=== PATIENT | female | born 1960 | race Caucasian/White ===

== ENCOUNTER → 2019-10-26 15:42 | Outpatient (CLI) | payer OTHER, SELFPAY ==
--- NOTE | 2019-10-26 | DI.RAD.S_ITS ---
PROCEDURE: XR HAND RT MIN 3V INDICATIONS: RIGHT THUMB PAIN FROM FALL TECHNIQUE: 3 views of the hand(s) acquired. COMPARISON: None. FINDINGS: Bones: No fractures or dislocations. Carpal bones are normally aligned. No suspicious bony lesions. Soft tissues: No suspicious soft tissue calcifications. IMPRESSION: 1. No acute fracture. No osseous lesion. If clinical suspicion and/orsymptoms persist, further assessment with repeat plainfilms, or advanced imaging (e.g., CT, MRI, or bone scan) may be helpful for further assessment. Dictated by: Johnathon Jenkins [facility] Interpreted: Anabel Whitaker MD on 10/26/2019 at 16:36 Approved by: Anabel Whitaker M.D. on 10/26/2019 at 18:20
== END ==
PROVIDERS: Referring Provider Internal Medicine; Visit Provider Internal Medicine
DX: M79.641 Pain in right hand (principal)
CPT/HCPCS: 73130

== ENCOUNTER 2019-12-04 03:09 | Emergency (ER) | payer OTHER, SELFPAY ==
[2019-12-04] VITALS (14 sets, daily range): BP systolic 97–214; BP diastolic 53–111; PULSE 72–111; RESP 11–26; TEMP 36.7; O2SAT 97–100; BMI 33.7
--- NOTE | 2019-12-04 03:17 | DI.RAD.S_ITS ---
PROCEDURE: XR CHEST 1V INDICATIONS: chest pain, pressure, arm pain TECHNIQUE: One view of the chest was acquired. COMPARISON: None. FINDINGS: Surgical changes and devices: Overlying monitoring wires. Lungs and pleura: Lungs are clear. No pleural effusions or pneumothorax. Mediastinum: Mediastinal contours appear normal. Heart size is normal. Bones and chest wall: No suspicious bony lesions. Overlying soft tissues appear unremarkable. IMPRESSION: No acute cardiopulmonary disease. Dictated by: Anabel Whitaker M.D. on 12/04/2019 at 6:56 Approved by: Anabel Whitaker M.D. on 12/04/2019 at 6:56
[2019-12-04] MEDS: SODIUM CHLORIDE 0.9% 1,000 ML 150 ML IV (03:28)
[2019-12-04] MEDS: ASPIRIN 81 MG CHEW TAB 324 MG PO (03:28)
[2019-12-04] MEDS: NITROGLYCERIN 0.4 MG SL TAB SL ×3 (03:28→04:36)
[2019-12-04 03:31] LABS: Add Manual Diff / Slide Review NO; Basophils Absolute Auto 100 /uL (0-100); Basophils Percent Auto 0.7 % (0-2); Eosinophils Absolute Auto 200 /uL (0-450); Hematocrit 42.8 % (36-46); Hemoglobin 14.4 g/dL (12.0-16.0); Lymphocytes Absolute Auto 2600 /uL (1100-4500); Lymphocytes Percent Auto 30.9 % (25-40); Mean Corpuscular HGB Conc 33.7 % (30-36); Mean Corpuscular Hemoglobin 29.6 PG (26-34); Mean Corpuscular Volume 87.8 fL (80-100); Monocytes Absolute Auto 700 /uL (0-900); Monocytes Percent Auto 8.7 % (3-14); Neutrophils Absolute Auto 4900 /uL (1500-7000); Neutrophils Percent Auto 57.7 % (50-75); Platelet Count 273 X10^3/uL (150-400); Red Blood Cell Count 4.87 X10^6/uL (4.0-5.2); White Blood Cell Count 8.5 X10^3/uL (4.5-11.0)
[2019-12-04] MEDS: METOPROLOL IR 50 MG TABLET PO (03:31)
[2019-12-04 03:40] LABS: INR 0.9 (0.9-1.3); Prothrombin Time 10.5 SECONDS (10.1-12.7)
[2019-12-04 03:43] LABS: PTT Partial Thromboplastin Tim 33 SECONDS (26.4-36.2)
--- NOTE | 2019-12-04 03:43 | ED_ITS ---
HPI - General Adult General Chief complaint: Hypertension Stated complaint: states high blood pressure, jaw pain, pain in arms Time Seen by Provider: 12/04/19 03:16 Source: patient Mode of arrival: Ambulatory Limitations: no limitations History of Present Illness HPI narrative: 59-year-old female nonsmoker with history of hypertension presents with a chief complaint of awaking from sleep with pain in both of her a mynor and in her jaw. She awoke at about 0315: Additionally, she feels very jittery and ?unsettled ?. She denies any headache or blurred vision. She denies any chest pain or back pain. She denies abdominal pain nor nausea or vomiting. She states that she has been having the symptoms in her arms for the past few days and had been on lisinopril 20 mg and consulted with her primary care provider who just yesterday switched her to metoprolol 25. She denies any recent exertional change in her symptoms. She denies any new provocation, palliation or radiation other than that which is already noted. She denies any unexplained diaphoresis. Radiation: extremity Severity: moderate Quality: aching Pain Consistency: constant Relieving factors: none Exacerbating factors: none Associated symptoms: denies other symptoms Treatments prior to arrival: none Related Data Allergies Allergy/AdvReac Type Severity Reaction Status Date / Time No Known Allergies Allergy Uncoded 08/21/17 07:24 Review of Systems Constitutional Constitutional: Denies chills, Denies fatigue, Denies fever(s), Denies frequent falls, Denies lethargy and Denies weakness Eyes Eyes: Denies change in vision, Denies eye discharge, Denies irritation and Denies loss of vision ENT Ears, Nose, Mouth, and Throat: Denies change in voice, Denies dizziness, Denies neck pain, Denies sore throat and Denies throat swelling Cardiovascular Cardiovascular: Denies chest pain, Denies irregular heart rhythm, Denies lighth eadedness, Denies palpitations, Denies dyspnea, Denies dyspnea on exertion and Denies orthopnea Comments: B/L extremity pain, jaw pain Respiratory Respiratory: Denies cough, Denies dyspnea, Denies dyspnea on exertion and Denies wheezing Gastrointestinal Gastrointestinal: Denies abdominal pain, Denies change in bowel habits, Denies diarrhea, Denies nausea and Denies vomiting Musculoskeletal Musculoskeletal: Denies neck pain and Denies numbness Integumentary/Breasts Skin/Breast: Denies pruritus, Denies erythema, Denies rash and Denies wounds Neurologic Neurologic: Denies behavioral changes, Denies confusion, Denies dizziness, Denies frequent falls, Denies loss of vision, Denies numbness and Denies weakness Psychiatric Psychiatric: Denies anxiety, Denies behavioral changes, Denies confusion, Denies depression, Denies homicidal ideation and Denies suicidal ideation Endocrine Endocrine: Denies fatigue, Denies flushing and Denies palpitations Hematologic/Lymphatic Hematologic/Lymphatic: Denies easy bruising Allergic/Immunologic Allergic/Immunologic: Denies urticaria, Denies throat swelling and Denies wheezing Patient History Social History Smoking Status: Never smoker Smoking Status: Never smoker alcohol intake frequency: 0-2 drinks per day Substance Use Type: does not use Exam Narrative Exam Narrative: GENERAL: [59] year old patient appears stated age. Well- nourished, well-developed patient, in mild distress. Anxious HEAD: Atraumatic. Normocephalic. EYES: Pupils equal round and reactive. Extraocular motions intact. No scleral icterus. No injection or drainage. ENT: Nose without bleeding, purulent drainage. Throat without erythema, tonsillar hypertrophy or exudate. Airway patent. NECK: Trachea midline. Non tender CARDIOVASCULAR: Regular rate and rhythm without murmurs, gallops, or rubs. RESPIRATORY: Clear to auscultation. Breath sounds equal bilaterally. No wheezes, rales, or rhonchi. GASTROINTESTINAL: Abdomen soft, non-tender, nondistended. EXTREMITIES: No edema or joint tenderness. BACK: Nontender without deformity or crepitance. No flank tenderness. NEURO: AOx3. SKIN: No rash or erythema of visible areas Initial Vital Signs Initial Vital Signs: Vital Signs Temperature 98.0 F 12/04/19 03:18 Pulse Rate 111 H 12/04/19 03:18 Respiratory Rate 19 12/04/19 03:18 Blood Pressure 214/111 H 12/04/19 03:18 Pulse Oximetry 98 12/04/19 03:18 Course Orders Ordered: ED Orders 12/04/19 03:14 EKG-12 Lead Stat 12/04/19 03:15 Complete Blood Count AUTO DIFF Stat D Dimer Stat Partial Thromboplastin Time Stat Prothrombin Time INR Stat 12/04/19 03:17 XR chest 1V Stat 12/04/19 03:40 EKG-12 Lead Routine 12/04/19 04:00 Comprehensive Metabolic Panel Stat Lipase Stat NT-proBNP (BNP-Adult 18+) Stat Troponin & CK Cardiac Panel Stat EKG-12 Lead Routine Sodium Chloride (Normal Saline 0.9%) 1,000 mls @ 150 mls/hr IV CONT RENETTA Last Admin: 12/04/19 03:28 Dose: 150 mls/hr Documented by: OMKAR Heparin Sodium/Dextrose (Heparin Drip) 25,000 unit in 500 mls @ 20 mls/hr IV CONT RENETTA; Protocol Last Admin: 12/04/19 04:17 Dose: 1,000 units/hr, 20 mls/hr Documented by: MARILYN Nitroglycerin (Nitrostat) 0.4 mg SL [id number] PRN PRN Reason: chest / arm pain Last Admin: 12/04/19 03:38 Dose: 0.4 mg Documented by: Admin: 12/04/19 03:28 Dose: 0.4 mg Documented by: OMKAR Discontinued Medications Aspirin (Aspirin Chew) 324 mg PO NOW ONE Stop: 12/04/19 03:18 Last Admin: 12/04/19 03:28 Dose: 324 mg Documented by: OMKAR Heparin Sodium (Porcine) (Heparin) 5,000 unit IV NOW ONE Stop: 12/04/19 04:06 Last Admin: 12/04/19 04:17 Dose: 5,000 unit Documented by: MARILYN Metoprolol Tartrate (Lopressor) 50 mg PO NOW ONE Stop: 12/04/19 03:18 Last Admin: 12/04/19 03:31 Dose: 50 mg Documented by: OMKAR Reevaluation(s) Reevaluation #1: pressure and BP improved after NG x1. Arm pressure down from 4 to 2. Jaw nearly gone. BP down to 160s. Reevaluation #2: BP down to 140s after 2nd nitro. Jaw pain gone. Arm pain gone. Repeat EKG ordered. Reevaluation #3: patient now completely asymptomatic, BP in the 109s. No discomfort. Consultations Consultation #1: call to [facility]. Shares opinion of STEMI call to [facility]. Lance accepts. EKGs faxed. Vital Signs Vital signs: Vital Signs - 8 hr 12/04/19 03:18 12/04/19 03:28 12/04/19 03:38 Temperature 98.0 F Pulse Rate 111 H 94 H 100 H Respiratory Rate 19 Blood Pressure 214/111 H 214/111 H 163/83 H Pulse Oximetry 98 Medical Decision Making Lab Data Result diagrams: 12/04/19 03:15 12/04/19 04:00 Labs: Lab Results 12/04/19 12/04/19 12/04/19 Range/Units 03:15 03:15 04:00 WBC 8.5 (4.5-11.0) X10^3/uL RBC 4.87 (4.0-5.2) X10^6/uL Hgb 14.4 (12.0-16.0) g/dL Hct 42.8 (36-46) % MCV 87.8 (80-100) fL MCH 29.6 (26-34) PG MCHC 33.7 (30-36) % RDW 13.0 (11.6-14.8) % Plt Count 273 (150-400) X10^3/uL Neut % (Auto) 57.7 (50-75) % Lymph % (Auto) 30.9 (25-40) % [place] % (Auto) 8.7 (3-14) % Eos % (Auto) 2.0 (2-4) % Baso % (Auto) 0.7 (0-2) % Neut # (Auto) 4900 (6983-7775) /uL Lymph # (Auto) 2600 (4108-7216) /uL [place] # (Auto) 700 (0-900) /uL Eos # (Auto) 200 (0-450) /uL Baso # (Auto) 100 (0-100) /uL PT 10.5 (10.1-12.7) SECONDS INR 0.9 (0.9-1.3) APTT 33 (26.4-36.2) SECONDS D-Dimer < 200 (<230) ng/mL Sodium 135 L (137-145) mmol/L Potassium 4.1 (3.4-5.1) mmol/L Chloride 102 (98-107) mmol/L Carbon Dioxide 28 (22-32) mmol/L BUN 21 H (7-17) mg/dL Creatinine 0.75 (0.52-1.04) mg/dL Estimated GFR > 60.0 (>60) mL/min BUN/Creatinine Ratio 28.0 H (6-22) Glucose 138 H (70-100) mg/dL Calcium 9.1 (8.4-10.2) mg/dL Total Bilirubin 0.5 (0.2-1.3) mg/dL AST 41 H (14-36) IU/L ALT 42 H (<35) IU/L Alkaline Phosphatase 69 (38-126) U/L Total Creatine Kinase 79 (30-135) U/L CK-MB (CK-2) TNP CK-MB (CK-2) Rel Index TNP Total Protein 6.7 (6.3-8.2) g/dL Albumin 3.9 (3.5-5.0) g/dL Globulin 2.8 (1.7-4.1) g/dL Albumin/Globulin Ratio 1.4 (1.0-2.8) Lipase 90 (23-300) U/L ECG Data Interpretation: EKG #1: NSR, hyperacute T waves septal leads. EKG #2: NSR, hyperacute T waves septal leads. STEMI EKG #3: NSR. Biphasic t waves septal leads, STEMI activated Critical Care Time Critical Care Time Critical Care Time: Yes Total Critical Care Time: 30 Attestation: The high probability of a clinically significant, sudden or life threatening deterioration of the [CV] system(s) required my full and direct attention, intervention and personal management. The aggregate critical care time was [30] minutes. This time is in addition to time spent performing reported procedures but includes the following: [x] Data Review and interpretation [x] Patient assessment and monitoring of vital signs [x] Documentation [x] Medication orders and management Discharge Plan Departure Patient Disposition: [facility] Clinical Impression: ST elevation (STEMI) myocardial infarction Qualifiers: Involved coronary artery: unspecified coronary artery Qualified Code(s): I21.3 - ST elevation (STEMI) myocardial infarction of unspecified site
[2019-12-04 03:48] LABS: D Dimer < 200 ng/mL (<230)
[2019-12-04] MEDS: HEPARIN 5,000 UNIT/ML VIAL 5000 UNIT IV (04:17)
[2019-12-04] MEDS: HEPARIN DRIP 25,000 UNIT/500 ML IV.SOLN 20 UNIT IV (04:17)
[2019-12-04 04:20] LABS: Alanine Aminotransferase 42 IU/L (<35); Albumin 3.9 g/dL (3.5-5.0); Albumin Globulin Ratio 1.4 (1.0-2.8); Alkaline Phosphatase 69 U/L (38-126); Aspartate Aminotransferase 41 IU/L (14-36); Bilirubin Total 0.5 mg/dL (0.2-1.3); Blood Urea Nitrogen 21 mg/dL (7-17); Calcium 9.1 mg/dL (8.4-10.2); Carbon Dioxide 28 mmol/L (22-32); Chloride 102 mmol/L (98-107); Creatine Kinase 79 U/L (30-135); Estimated Glomerular Filt Rate > 60.0 mL/min (>60); Globulin 2.8 g/dL (1.7-4.1); Glucose 138 mg/dL (70-100); HEMOLYSIS < 15 (0-50); Lipase 90 U/L (23-300); Potassium 4.1 mmol/L (3.4-5.1); Sodium 135 mmol/L (137-145); Total Protein 6.7 g/dL (6.3-8.2)
[2019-12-04 04:34] LABS: NT-proBNP (BNP-Adult 18+) 654 pg/mL (<125)
[2019-12-04 04:36] LABS: Troponin I 0.482 ng/mL (0.01-0.034)
== END 2019-12-04 04:48 | disposition short-term general hospital (02) ==
PROVIDERS: Emergency Provider Emergency Medicine
DX: I21.3 ST elevation (STEMI) myocardial infarction of unspecified site (principal); I10 Essential (primary) hypertension; R68.84 Jaw pain
CPT/HCPCS: 36415; 71045; 80053; 82550; 83690; 83880; 84484; 85025; 85379; 85610; 85730; 93005; 96361; 96365; 96375; 99285; 99291; J1644

== ENCOUNTER → 2019-12-14 12:58 | Outpatient (CLI) | payer OTHER, SELFPAY ==
--- NOTE | 2019-12-14 | DI.RAD.S_ITS ---
PROCEDURE: XR CHEST 2V INDICATIONS: MN, Back pain TECHNIQUE: 2 views of the chest were acquired. COMPARISON: [facility], , XR CHEST 1V, 12/04/2019, 3:28. FINDINGS: Surgical changes and devices: None. Lungs and pleura: Lungs are clear. No pleural effusions or pneumothorax. Mediastinum: Mediastinal contours are normal. Heart size is normal. Bones and chest wall: No suspicious bony abnormalities. Soft tissues appear unremarkable. IMPRESSION: No acute cardiopulmonary findings. Dictated by: Virginia Gallo M.D. on 12/14/2019 at 15:25 Approved by: Virginia Gallo M.D. on 12/14/2019 at 15:25
== END ==
PROVIDERS: PCP Internal Medicine; Referring Provider Internal Medicine; Visit Provider Internal Medicine
DX: M54.9 Dorsalgia, unspecified (principal); I25.2 Old myocardial infarction; R07.1 Chest pain on breathing
CPT/HCPCS: 71046

== ENCOUNTER 2019-12-18 22:43 | Emergency (ER) | payer OTHER, SELFPAY ==
--- NOTE | 2019-12-18 22:49 | ED_ITS ---
HPI - General Adult General Chief complaint: Hypertension Stated complaint: blood pressure was elevated, took Nitro Time Seen by Provider: 12/18/19 22:45 Source: patient Mode of arrival: Ambulatory Limitations: no limitations History of Present Illness HPI narrative: 59-year-old female nonsmoker with history of coronary artery disease and a recent STEMI requiring heart catheterization and stent in her LAD. She presents tonight with a brief episode of HTN prior to her arrival, she was as high as 220s and has since normalized. She denies any other symptoms such as headache, blurred vision or numbness, tingling or weakness. She has had no dizziness or lightheadedness. She denies any chest pain, shortness of breath or cough. She has no abdominal pain nor nausea, vomiting or diarrhea. Related Data Home Medications Medication Instructions Recorded Confirmed aspirin [Aspirin Low Dose] 81 mg PO DAILY 12/18/19 12/18/19 atorvastatin 80 mg PO QPM 12/18/19 12/18/19 clopidogrel 75 mg PO DAILY 12/18/19 12/18/19 isosorbide mononitrate 30 mg PO DAILY 12/18/19 12/18/19 losartan 12.5 mg PO DAILY 12/18/19 12/18/19 metoprolol succinate 25 mg PO BID 12/18/19 12/18/19 nitroglycerin 0.4 mg SUBLINGUAL Q5-15M PRN 12/18/19 12/18/19 Previous Rx's Medication Instructions Recorded alprazolam [Xanax] 0.25 mg PO BEDTIME PRN #10 tab 12/19/19 Allergies Allergy/AdvReac Type Severity Reaction Status Date / Time No Known Allergies Allergy Uncoded 08/21/17 07:24 Review of Systems Constitutional Constitutional: Denies chills, Denies fatigue, Denies fever(s), Denies frequent falls, Denies lethargy and Denies weakness Eyes Eyes: Denies change in vision, Denies eye discharge, Denies irritation and Denies loss of vision ENT Ears, Nose, Mouth, and Throat: Denies change in voice, Denies dizziness, Denies neck pain, Denies sore throat and Denies throat swelling Cardiovascular Cardiovascular: Denies chest pain, Denies irregular heart rhythm, Denies lightheadedness, Denies palpitations, Denies dyspnea, Denies dyspnea on exertion and Denies orthopnea Respiratory Respiratory: Denies cough, Denies dyspnea, Denies dyspnea on exertion and Denies wheezing Gastrointestinal Gastrointestinal: Denies abdominal pain, Denies change in bowel habits, Denies d iarrhea, Denies nausea and Denies vomiting Musculoskeletal Musculoskeletal: Denies neck pain and Denies numbness Integumentary/Breasts Skin/Breast: Denies pruritus, Denies erythema, Denies rash and Denies wounds Neurologic Neurologic: Denies behavioral changes, Denies confusion, Denies dizziness, Denies frequent falls, Denies loss of vision, Denies numbness and Denies weakness Psychiatric Psychiatric: Reports anxiety, Denies behavioral changes, Denies confusion, Denies depression, Denies homicidal ideation and Denies suicidal ideation Endocrine Endocrine: Denies fatigue, Denies flushing and Denies palpitations Hematologic/Lymphatic Hematologic/Lymphatic: Denies easy bruising Allergic/Immunologic Allergic/Immunologic: Denies urticaria, Denies throat swelling and Denies wheezi ng Patient History Social History Smoking Status: Never smoker Smoking Status: Never smoker alcohol intake frequency: 0-2 drinks per day Substance Use Type: does not use Exam Narrative Exam Narrative: GENERAL: [59] year old patient appears stated age. Well- nourished, well-developed patient, in mild distress. HEAD: Atraumatic. Normocephalic. EYES: Pupils equal round and reactive. Extraocular motions intact. No scleral icterus. No injection or drainage. ENT: Nose without bleeding, purulent drainage. Throat without erythema, tonsillar hypertrophy or exudate. Airway patent. NECK: Trachea midline. Non tender CARDIOVASCULAR: Regular rate and rhythm without murmurs, gallops, or rubs. RESPIRATORY: Clear to auscultation. Breath sounds equal bilaterally. No wheezes, rales, or rhonchi. GASTROINTESTINAL: Abdomen soft, non-tender, nondistended. EXTREMITIES: No edema or joint tenderness. BACK: Nontender without deformity or crepitance. No flank tenderness. NEURO: AOx3. SKIN: No rash or erythema of visible areas Initial Vital Signs Initial Vital Signs: Vital Signs Temperature 98.1 F 12/18/19 22:50 Pulse Rate 66 12/18/19 22:50 Respiratory Rate 18 12/18/19 22:50 Blood Pressure 145/78 H 12/18/19 22:50 Pulse Oximetry 100 12/18/19 22:50 Course Orders Ordered: Discontinued Medications Sodium Chloride (Normal Saline 0.9%) 1,000 mls @ 125 mls/hr IV CONT RENETTA Last Infusion: 12/19/19 02:13 Dose: 0 mls/hr Documented by: Admin: 12/18/19 23:38 Dose: 125 mls/hr Documented by: CELSO Consultations Consultation #1: Case discussed with on-call Cardiology at [facility]. Current EKG reviewed and new appearing lateral T-wave inversions discussed. This EKG is nearly identical to the post catheterization EKG per Cardiology. No concerning findings. Okay for DC and follow up. Vital Signs Vital signs: Vital Signs - 8 hr 12/18/19 22:50 12/18/19 22:53 12/18/19 23:00 Temperature 98.1 F Pulse Rate 66 74 71 Respiratory Rate 18 12 Blood Pressure 145/78 H 118/68 Pulse Oximetry 100 98 97 12/18/19 23:34 12/18/19 23:36 12/19/19 00:00 Temperature Pulse Rate 74 67 Respiratory Rate 14 Blood Pressure 149/86 H 128/73 Pulse Oximetry 96 95 Medical Decision Making Lab Data Result diagrams: 12/18/19 23:25 12/18/19 23:25 Labs: Lab Results 12/18/19 12/18/19 12/18/19 Range/Units 23:25 23:25 23:25 WBC 8.2 (4.5-11.0) X10^3/uL RBC 4.12 (4.0-5.2) X10^6/uL Hgb 12.3 (12.0-16.0) g/dL Hct 35.8 L (36-46) % MCV 86.9 (80-100) fL MCH 29.8 (26-34) PG MCHC 34.3 (30-36) % RDW 12.8 (11.6-14.8) % Plt Count 374 (150-400) X10^3/uL Neut % (Auto) 71.2 (50-75) % Lymph % (Auto) 18.2 L (25-40) % [place] % (Auto) 8.1 (3-14) % Eos % (Auto) 1.7 L (2-4) % Baso % (Auto) 0.8 (0-2) % Neut # (Auto) 5800 (7206-7484) /uL Lymph # (Auto) 1500 (4041-8096) /uL [place] # (Auto) 700 (0-900) /uL Eos # (Auto) 100 (0-450) /uL Baso # (Auto) 100 (0-100) /uL Sodium 136 L (137-145) mmol/L Potassium 4.5 (3.4-5.1) mmol/L Chloride 102 (98-107) mmol/L Carbon Dioxide 28 (22-32) mmol/L BUN 23 H (7-17) mg/dL Creatinine 0.65 (0.52-1.04) mg/dL Estimated GFR > 60.0 (>60) mL/min BUN/Creatinine Ratio 35.4 H (6-22) Glucose 110 H (70-100) mg/dL Calcium 9.5 (8.4-10.2) mg/dL Total Creatine Kinase 73 (30-135) U/L CK-MB (CK-2) TNP CK-MB (CK-2) Rel Index TNP Troponin I 0.012 (0.01-0.034) ng/mL 12/19/19 Range/Units 00:42 WBC (4.5-11.0) X10^3/uL RBC (4.0-5.2) X10^6/uL Hgb (12.0-16.0) g/dL Hct (36-46) % MCV (80-100) fL MCH (26-34) PG MCHC (30-36) % RDW (11.6-14.8) % Plt Count (150-400) X10^3/uL Neut % (Auto) (50-75) % Lymph % (Auto) (25-40) % [place] % (Auto) (3-14) % Eos % (Auto) (2-4) % Baso % (Auto) (0-2) % Neut # (Auto) (6024-1543) /uL Lymph # (Auto) (0725-5036) /uL [place] # (Auto) (0-900) /uL Eos # (Auto) (0-450) /uL Baso # (Auto) (0-100) /uL Sodium (137-145) mmol/L Potassium (3.4-5.1) mmol/L Chloride (98-107) mmol/L Carbon Dioxide (22-32) mmol/L BUN (7-17) mg/dL Creatinine (0.52-1.04) mg/dL Estimated GFR (>60) mL/min BUN/Creatinine Ratio (6-22) Glucose (70-100) mg/dL Calcium (8.4-10.2) mg/dL Total Creatine Kinase (30-135) U/L CK-MB (CK-2) CK-MB (CK-2) Rel Index Troponin I < 0.012 (0.01-0.034) ng/mL Discharge Plan Departure Patient Disposition: Home Clinical Impression: Anxiety Hypertension Qualifiers: Hypertension type: essential hypertension Qualified Code(s): I10 - Essential (primary) hypertension Discharge Date/Time: 12/19/19 02:12 Activity Restrictions/Additional Instructions: *You have been diagnosed with [ hypertension, anxiety ] *What to do: *Take medications as directed *Follow up with your primary care provider in 2-3 days, call for an appointment. Let them know you were seen in the Emergency Department and that we ask that you be seen in follow up *Return to ER if you should have any new, worsening or concerning symptoms Prescriptions: New alprazolam [Xanax] 0.25 mg tablet 0.25 mg PO BEDTIME PRN (Reason: anxiety) Qty: 10 RF: 0 No Action atorvastatin 80 mg Tablet 80 mg PO QPM RF: 0 isosorbide mononitrate 30 mg Tablet Extended Release 24 Hr 30 mg PO DAILY RF: 0 clopidogrel 75 mg Tablet 75 mg PO DAILY RF: 0 aspirin [Aspirin Low Dose] 81 mg Tablet,Delayed Release (Dr/Ec) 81 mg PO DAILY RF: 0 losartan 25 mg Tablet 12.5 mg PO DAILY RF: 0 metoprolol succinate 25 mg Tablet Extended Release 24 Hr 25 mg PO BID RF: 0 nitroglycerin 0.4 mg Tablet, Sublingual 0.4 mg SUBLINGUAL Q5-15M PRN (Reason: Chest Pain) RF: 0 Referrals: Arminda Miles ARNP [Primary Care Provider] -
[2019-12-18 22:50] VITALS: BP 145/78; PULSE 66; RESP 18; TEMP 36.7; O2SAT 100
[2019-12-18 22:53] VITALS: PULSE 74; O2SAT 98
[2019-12-18 23:00] VITALS: BP 118/68; PULSE 71; RESP 12; O2SAT 97
[2019-12-18 23:33] LABS: Add Manual Diff / Slide Review NO; Basophils Absolute Auto 100 /uL (0-100); Basophils Percent Auto 0.8 % (0-2); Eosinophils Absolute Auto 100 /uL (0-450); Eosinophils Percent Auto 1.7 % (2-4); Hematocrit 35.8 % (36-46); Hemoglobin 12.3 g/dL (12.0-16.0); Lymphocytes Absolute Auto 1500 /uL (1100-4500); Lymphocytes Percent Auto 18.2 % (25-40); Mean Corpuscular HGB Conc 34.3 % (30-36); Mean Corpuscular Hemoglobin 29.8 PG (26-34); Mean Corpuscular Volume 86.9 fL (80-100); Monocytes Absolute Auto 700 /uL (0-900); Monocytes Percent Auto 8.1 % (3-14); Neutrophils Absolute Auto 5800 /uL (1500-7000); Neutrophils Percent Auto 71.2 % (50-75); Platelet Count 374 X10^3/uL (150-400); Red Blood Cell Count 4.12 X10^6/uL (4.0-5.2); Red Cell Distribution Width 12.8 % (11.6-14.8); White Blood Cell Count 8.2 X10^3/uL (4.5-11.0)
[2019-12-18 23:34] VITALS: PULSE 74; O2SAT 96
[2019-12-18 23:36] VITALS: BP 149/86
[2019-12-18] MEDS: SODIUM CHLORIDE 0.9% 1,000 ML 125 ML IV (23:38)
[2019-12-18 23:43] LABS: Creatine Kinase 73 U/L (30-135)
[2019-12-18 23:44] LABS: BUN Creatinine Ratio 35.4 (6-22); Blood Urea Nitrogen 23 mg/dL (7-17); Calcium 9.5 mg/dL (8.4-10.2); Carbon Dioxide 28 mmol/L (22-32); Chloride 102 mmol/L (98-107); Estimated Glomerular Filt Rate > 60.0 mL/min (>60); Glucose 110 mg/dL (70-100); Potassium 4.5 mmol/L (3.4-5.1); Sodium 136 mmol/L (137-145)
[2019-12-18 23:47] LABS: HEMOLYSIS 104 (0-50)
[2019-12-18 23:56] LABS: Troponin I 0.012 ng/mL (0.01-0.034)
[2019-12-19] VITALS: BP 128/73; PULSE 67; RESP 14; O2SAT 95
[2019-12-19 00:30] VITALS: PULSE 65; RESP 20; O2SAT 98
[2019-12-19 00:31] VITALS: BP 142/83; PULSE 65; RESP 18; O2SAT 98
[2019-12-19 01:00] VITALS: BP 114/66; PULSE 61; RESP 15; O2SAT 97
[2019-12-19 01:14] LABS: Troponin I < 0.012 ng/mL (0.01-0.034)
[2019-12-19 01:30] VITALS: BP 114/63; PULSE 59; RESP 16; O2SAT 97
== END 2019-12-19 02:12 | disposition home or self-care (01) ==
PROVIDERS: Emergency Provider Emergency Medicine; PCP Internal Medicine
DX: F41.9 Anxiety disorder, unspecified (principal); I10 Essential (primary) hypertension; I25.10 Atherosclerotic heart disease of native coronary artery without angina pectoris
CPT/HCPCS: 36415; 80048; 82550; 84484; 85025; 93005; 96360; 96361; 99284

== ENCOUNTER → 2020-02-03 19:04 | Outpatient (ROUT) | payer OTHER, SELFPAY ==
[2020-02-03 19:12] LABS: Add Manual Diff / Slide Review NO; Basophils Absolute Auto 0 /uL (0-100); Basophils Percent Auto 0.3 % (0-2); Eosinophils Absolute Auto 100 /uL (0-450); Eosinophils Percent Auto 1.4 % (2-4); Hematocrit 38.4 % (36-46); Lymphocytes Absolute Auto 1300 /uL (1100-4500); Lymphocytes Percent Auto 20.6 % (25-40); Mean Corpuscular Hemoglobin 30.2 PG (26-34); Mean Corpuscular Volume 88.9 fL (80-100); Monocytes Absolute Auto 600 /uL (0-900); Monocytes Percent Auto 9.2 % (3-14); Neutrophils Absolute Auto 4300 /uL (1500-7000); Neutrophils Percent Auto 68.5 % (50-75); Platelet Count 229 X10^3/uL (150-400); Red Blood Cell Count 4.32 X10^6/uL (4.0-5.2); Red Cell Distribution Width 13.4 % (11.6-14.8); White Blood Cell Count 6.2 X10^3/uL (4.5-11.0)
[2020-02-03 19:23] LABS: Alanine Aminotransferase 40 IU/L (<35); Albumin 4.3 g/dL (3.5-5.0); Albumin Globulin Ratio 1.6 (1.0-2.8); Alkaline Phosphatase 74 U/L (38-126); Aspartate Aminotransferase 32 IU/L (14-36); BUN Creatinine Ratio 36.9 (6-22); Bilirubin Total 0.6 mg/dL (0.2-1.3); Blood Urea Nitrogen 24 mg/dL (7-17); Calcium 9.5 mg/dL (8.4-10.2); Carbon Dioxide 32 mmol/L (22-32); Chloride 102 mmol/L (98-107); Cholesterol 118 mg/dL (140-199); Estimated Glomerular Filt Rate > 60.0 mL/min (>60); Globulin 2.7 g/dL (1.7-4.1); Glucose 90 mg/dL (70-100); HDL Cholesterol 54 mg/dL (40-60); HEMOLYSIS < 15 (0-50); LDL Cholesterol Calculated 45 mg/dL (<100); Potassium 4.2 mmol/L (3.4-5.1); Sodium 139 mmol/L (137-145); Triglycerides 96 mg/dL (35-150)
[2020-02-03 19:24] LABS: C-Reactive Protein Quant < 0.5 mg/dL (<1.0)
[2020-02-03 19:29] LABS: Erythrocyte Sedimentation Rate 15 MM/HR (0-20)
== END ==
PROVIDERS: PCP Internal Medicine; Visit Provider Physician Assistant
DX: M79.10 Myalgia, unspecified site (principal); I21.3 ST elevation (STEMI) myocardial infarction of unspecified site; E78.00 Pure hypercholesterolemia, unspecified
CPT/HCPCS: 80053; 80061; 85025; 85651; 86140

== ENCOUNTER → 2020-12-28 07:18 | Outpatient (CLI) | payer OTHER, SELFPAY ==
--- NOTE | 2020-12-28 | DI.US.S_ITS ---
PROCEDURE: US ABDOMEN COMPLETE INDICATIONS: ELEVATED LIVER FUNCTION TESTS TECHNIQUE: Real-time scanning was performed of the abdominal and retroperitoneal organs, with image documentation. COMPARISON: None. FINDINGS: Liver: Liver is normal in size and homogeneous in echotexture. Gallbladder: No findings of gallstones or sludge are seen. The gallbladder wall is not thickened, measuring 3 mm or less. No specific pericholecystic fluid is seen. The sonographic Haywood sign is negative. Biliary ducts: Intrahepatic bile ducts are non-dilated. Extrahepatic bile duct caliber measures 3.5 mm. Normal is 6-7 mm or less in diameter, or 10 mm or less post-cholecystectomy. Pancreas: Visualized portions of the pancreas are sonographically normal. Spleen: Spleen is normal in size and homogeneous in echotexture. Kidneys: Kidneys are normal in size and echotexture. Right kidney measures 10.7 cm long; left kidney measures 10.6 cm long. No hydronephrosis. No solid masses. At the superior pole of the right kidney, there is a punctate echogenic focus seen. Within the mid/lateral right kidney, there is a 7 mm simple cyst seen. The left kidney demonstrates a lobular appearance. Within the left kidney, there is a hypoechoic homogeneous appearing focus with internal vascularity that measures 1.6 x 1.3 x 1.4 cm. Aorta: Visualized aorta is normal in caliber at less than 3 cm. Iliacs: Proximal common iliac arteries are normal in caliber at less than 2.5 cm. IVC: Intrahepatic inferior vena cava is patent. Miscellaneous: No free abdominal fluid. IMPRESSION: Normal appearing liver by ultrasound. The gallbladder demonstrates a normal sonographic appearance. No biliary dilatation is seen. There is a 1.6 x 1.3 x 1.4 cm focus of the left kidney, which most likely relates to benign lobulation, yet differential diagnosis would also include a mass. In a patient of this age, a dedicated renal mass protocol (without and with contrast) CT is now recommended for further evaluation. Hyperechoic foci are seen within the right kidney, which are likely artifactual, yet differential diagnosis includes tiny stones. Dictated by: Marcio Lucia M.D. on 12/28/2020 at 8:20 Approved by: Marcio Lucia M.D. on 12/28/2020 at 8:24
== END ==
PROVIDERS: PCP Physician Assistant; Referring Provider Physician Assistant; Visit Provider Physician Assistant
DX: R79.89 Other specified abnormal findings of blood chemistry (principal)
CPT/HCPCS: 76700

== ENCOUNTER 2021-01-11 09:00 | Outpatient (RCR) | payer OTHER, SELFPAY ==
--- NOTE | 2020-09-22 11:54 | PT.OIE ---
Current Diagnoses Unspecified fracture of upper end of right humerus, subsequent encounter for fracture with routine healing (09/22/20) Visit Care Team Role Provider Type CAMRON Ness Primary Care Provider Advanced [employer] Specialty: Family Practice Address: [address] [place] [address], [facility] [place], [address] Email: [email or web address] Cleveland PA-C Attending Provider Non-Staff Referring Provider Specialty: Medical Address: [address] [place] [address], [id number] Email: Physical Therapy Initial Evaluation PT-OP-A Visit Information Start: 09/22/20 08:17 Freq: Status: Active Protocol: Document 09/22/20 09:01 OF (Rec: 09/22/20 11:54 OF [email or web address]) Out-Patient Physical Therapy Visit Information Visit Information Visit Type Initial Evaluation Visit Note Pt referred to physical therapy after falling and suffering R humeral fx of greater trochanter. Visit Start Time 08:15 Visit Stop Time 09:01 Total Visit Minutes 46 Visit Number 1 Evaluation Information Evaluation Date 09/22/20 Precautions Precautions No R shldr ABD, Ext. Rot. PT-OP-B Current Condition Start: 09/22/20 08:17 Freq: Status: Active Protocol: Document 09/22/20 09:01 OF (Rec: 09/22/20 11:54 OF [email or web address]) Current Condition History of Current Condition Onset Date 08/29/20 Current Complaints pain in R shoulder, swelling in R UE History of Current Condition Pt has been using a sling part time until last week when she was progressed to move out of sling while seated and perform pendulums. 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 She demonstrates normal gait pattern and dynamic balance PT-OP-C Subjective Start: 09/22/20 08:17 Freq: Status: Active Protocol: Document 09/22/20 09:01 OF (Rec: 09/22/20 11:54 OF [email or web address]) OP-PT Subjective Patient Comments Patient Reported Progress Improving Patient Questionnaires Quick Dash- Upper Extremity Quick Dash UE Impairment 40 to 59% Impaired (Score 40- 59) OP-PT Pain Assessment Pain Assessment Grid Paper Pain Assessment Grid Completed Yes Location Right Shoulder Scale Used Numeric (0 - 10) Description Aching Frequency Frequent Pain Aggravating Factors Changing Position,ADL's, Activity Pain Alleviating Factors Lying Supine,Position Home Pain Medication Use Pain Medications Used Yes Home Pain Medication Frequency daily tylenol Patient Goal get back to normal PT-OP-K Range of Motion Start: 09/22/20 08:17 Freq: Status: Active Protocol: Document 09/22/20 09:01 OF (Rec: 09/22/20 11:54 OF [facility]) Shoulder Goniometric Range of Motion Shoulder ROM Limitations Comments pt unable to perform R ext. rot or ABD per MD restrictions after fx PT-OP-Q Treatments Start: 09/22/20 08:17 Freq: Status: Active Protocol: Document 09/22/20 09:01 OF (Rec: 09/22/20 11:54 OF [facility]) Therapeutic Exercises Sitting Exercises 2 Sitting Exercise Name wrist flex/ext/pron/sup/ gripping Side right Reps/Minutes 15x3 each 1 Sitting Exercise Name bicep curls unweighted Side right Reps/Minutes 15x3 Standing Exercises 1 Standing Exercise Name pendulum Side right Reps/Minutes 1min each way x3 Comments using body to propel R UE in circles Bilat direction Self-Care/Home Management Treatment Education Patient Education Home Exercise Program Other Education Pt issued HEP for pendulums, bicep curls, wrist ROM, and elevating UE to reduce bruising/swelling PT-OP-T Assessment and Plan Start: 09/22/20 08:17 Freq: Status: Active Protocol: Document 09/22/20 09:01 OF (Rec: 09/22/20 11:54 OF [email or web address]) Physical Therapy Assessment Rehab Potential Rehabilitation Potential Excellent Evaluation Complexity Number of Personal Factors/Comorbidities 1-2 Number of Body Systems Impaired 1-2 Clinical Presentation at Evaluation Evolving Impairments Impairments Functional Activities,Strength Other Impairments No ABD or ext. rot of R shoulder Goals Four Impairment R ue weakness Short Term Goal (STG) Pt will improve R shoulder strength in all planes to 2/5 to initiate ADL STG Duration 2 weeks Prison Goal (LTG) Pt will improve R shoulder strength in all planes to 4/5 to return to work and achieve symmetry with L shoulder Three Impairment quickdash Prison Goal (LTG) Pt will improve quickdash to < 20% to demonstrate improved function with R UE LTG Duration 6 weeks Two Impairment loss of R shoulder ext rot Short Term Goal (STG) pt will demo 20 degrees ext rot to initiate ADL with R UE STG Duration 2 weeks Prison Goal (LTG) Pt will demo 40 degrees of ext rot to return to I PLOF and work LTG Duration 6 weeks One Impairment Loss of R shoulder ROM Short Term Goal (STG) Pt will demo R shoulder flexion to 90 degrees to initiate overhead activities STG Duration 2 weeks Prison Goal (LTG) Pt will demo 180 degrees R shoulder flexion to return to normal PLOF LTG Duration 6 weeks Assessment Summary Assessment Roma is a 59 yo female referred to physical therapy after fracturing her R humerus . She fell while at work. She has been unable to perform R shoulder ABD or ext. rot. per MD orders. She has had edema and bruising since injury occured 08/29. She has improved edema and is willing to attempt elevating at home. She has a good potential to return to PLOF of Independent and working. Her R shoulder AROM will be assessed when she is cleared to perform ABD and ext rot. She is aware of HEP and agreeable to 1x/week therapy until cleared for further activity per MD. Physical Therapy Plan Frequency and Duration Frequency of Treatment 1x/Week Duration of Treatment 6weeks Plan of Care Start Date 09/22/20 Plan of Care End Date 12/04/20 Therapeutic Interventions Therapeutic Interventions Home Exercise Program,Joint Mobilizations,Manual Therapy, Neuromuscular Re-education, Therapeutic Exercises
--- NOTE | 2020-09-29 09:49 | PT.OTN ---
Current Diagnoses Weakness (09/29/20) Unspecified fracture of upper end of right humerus, subsequent encounter for fracture with routine healing (09/29/20) Physical Therapy Treatment Note PT-OP-A Visit Information Start: 09/22/20 08:17 Freq: Status: Active Protocol: Document 09/29/20 09:41 OF (Rec: 09/29/20 09:49 OF [email or web address]) Out-Patient Physical Therapy Visit Information Visit Information Visit Type Treatment Note Visit Note Pt states she saw a new orthopod this week. Per pt progress PROM, continue avoiding AROM. Pt agreeable to requesting written info to guide ROM progression Visit Start Time 08:58 Visit Stop Time 09:40 Total Visit Minutes 42 Visit Number 2 Evaluation Information Evaluation Date 09/22/20 Precautions Precautions No R shldr ABD, Ext. Rot. PT-OP-B Current Condition Start: 09/22/20 08:17 Freq: Status: Active Protocol: Document 09/22/20 09:01 OF (Rec: 09/22/20 11:54 OF [email or web address]) Current Condition History of Current Condition Onset Date 08/29/20 Current Complaints pain in R shoulder, swelling in R UE History of Current Condition Pt has been using a sling machine puller over until last week when she was progressed to move out of sling while seated and perform pendulums. 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 She demonstrates normal gait pattern and dynamic balance PT-OP-C Subjective Start: 09/22/20 08:17 Freq: Status: Active Protocol: Document 09/29/20 09:41 OF (Rec: 09/29/20 09:49 OF [email or web address]) OP-PT Subjective Patient Comments Patient Comments Pt states her pain has improved, HEP as instructed Patient Reported Progress Improving OP-PT Pain Assessment Pain Assessment Grid Paper Pain Assessment Grid Completed Yes: No pain reported Home Pain Medication Use Pain Medications Used No: Pt states she has stopped OTC pain meds PT-OP-K Range of Motion Start: 09/22/20 08:17 Freq: Status: Active Protocol: Document 09/22/20 09:01 OF (Rec: 09/22/20 11:54 OF [facility]) Shoulder Goniometric Range of Motion Shoulder ROM Limitations Comments pt unable to perform R ext. rot or ABD per MD restrictions after fx PT-OP-Q Treatments Start: 09/22/20 08:17 Freq: Status: Active Protocol: Document 09/29/20 09:41 OF (Rec: 09/29/20 09:49 OF [facility]) Therapeutic Exercises Supine Exercises 1 Supine Exercise Name PROM R shoulder ABD to 90, flexion to 90 with full humeral support Side right Reps/Minutes 3x2min Sitting Exercises 2 Sitting Exercise Name wrist flex/ext/pron/sup/ gripping Side right Reps/Minutes 15x3 each 1 Sitting Exercise Name bicep curls unweighted Side right Standing Exercises 1 Standing Exercise Name pendulum Side right Reps/Minutes 30sec bidirectional Manual Therapy Treatment Soft Tissue Mobilization 1 Mobilization Type Cross-Friction,Strumming Intensity/Depth Moderate Body Position Supine Comments R shldr STM for bruising/ hematoma. Pt agreeable to self massage for improved venous return Self-Care/Home Management Treatment Education Patient Education Body Mechanics,Fall Risk,Home Exercise Program,Joint Protection,Safety PT-OP-T Assessment and Plan Start: 09/22/20 08:17 Freq: Status: Active Protocol: Document 09/29/20 09:41 OF (Rec: 09/29/20 09:49 OF [facility]) Physical Therapy Assessment Rehab Potential Rehabilitation Potential Good Evaluation Complexity Number of Personal Factors/Comorbidities 0 Number of Body Systems Impaired 1-2 Clinical Presentation at Evaluation Stable Impairments Impairments Functional Activities,ROM,Soft Tissue Mobility,Strength Progress Towards Goals Progress Towards Goals Progressing Toward Goals Assessment Summary Assessment Pt has improved tolerance for pendulums and HEP. Pt requires assist for PROM and is agreeable to continued avoidance of ABD, ext rotation with R UE Physical Therapy Plan Frequency and Duration Duration of Treatment 6weeks Plan of Care Start Date 09/22/20 Plan of Care End Date 12/04/20 Next Visit Focus/Plan Next Note Type Treatment Note Next Visit Plan progress PROM if further clarification from ortho is provided
--- NOTE | 2020-10-02 10:29 | PT.OTN ---
Current Diagnoses Weakness (10/02/20) Unspecified fracture of upper end of right humerus, subsequent encounter for fracture with routine healing (10/02/20) Physical Therapy Treatment Note PT-OP-A Visit Information Start: 09/22/20 08:17 Freq: Status: Active Protocol: Document 10/02/20 10:23 OF (Rec: 10/02/20 10:29 OF [email or web address]) Out-Patient Physical Therapy Visit Information Visit Information Visit Type Treatment Note Visit Note Pt brings written note for PROM of R shoulder, no AROM Visit Start Time 09:40 Visit Stop Time 10:20 Total Visit Minutes 40 Visit Number 3 Evaluation Information Evaluation Date 09/22/20 Precautions Precautions No AROM R shldr ABD, Ext. Rot . 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 She demonstrates normal gait pattern and dynamic balance PT-OP-C Subjective Start: 09/22/20 08:17 Freq: Status: Active Protocol: Document 10/02/20 10:23 OF (Rec: 10/02/20 10:29 OF [email or web address]) OP-PT Subjective Patient Comments Patient Comments Pt states HEP has been helpful Patient Reported Progress Improving OP-PT Pain Assessment Pain Assessment Grid Paper Pain Assessment Grid Completed Yes Location Right Shoulder Scale Used Numeric (0 - 10) Description Aching Frequency Frequent Pain Aggravating Factors Changing Position,ADL's, Activity Pain Alleviating Factors Lying Supine,Position PT-OP-K Range of Motion Start: 09/22/20 08:17 Freq: Status: Active Protocol: Document 09/22/20 09:01 OF (Rec: 09/22/20 11:[facility] Shoulder Goniometric Range of Motion Shoulder ROM Limitations Comments pt unable to perform R ext. rot or ABD per MD restrictions after fx PT-OP-Q Treatments Start: 09/22/20 08:17 Freq: Status: Active Protocol: Document 10/02/20 10:23 OF (Rec: 10/02/20 10:29 OF [email or web address]) Therapeutic Exercises Supine Exercises 1 Supine Exercise Name PROM R shoulder ABD to 90, flexion to 90 with full humeral support Side right Reps/Minutes 3x3min Comments Pt with cane self directed PROM with ext rot in seated, sup for shoulder Sitting Exercises 2 Sitting Exercise Name wrist flex/ext/pron/sup/ gripping Side right Comments pt agreeable to progressing with 3# while supporting forearm 1 Sitting Exercise Name bicep curls unweighted Side right Reps/Minutes 3x10 Standing Exercises 1 Standing Exercise Name pendulum Side right Reps/Minutes 30sec bidirectional Manual Therapy Treatment Soft Tissue Mobilization 1 Mobilization Type Cross-Friction,Strumming Intensity/Depth Moderate Body Position Supine Comments R shldr STM for bruising/ hematoma. Pt agreeable to self massage hot pack x10min improves tolerance Self-Care/Home Management Treatment Education Patient Education Body Mechanics,Home Exercise Program Other Education Pt issued HEP for pendulums, bicep curls, wrist ROM, and PROM with cane for ext rot and sup shoulder flexion PT-OP-T Assessment and Plan Start: 09/22/20 08:17 Freq: Status: Active Protocol: Document 10/02/20 10:23 OF (Rec: 10/02/20 10:29 OF [facility]) Physical Therapy Assessment Rehab Potential Rehabilitation Potential Good Evaluation Complexity Number of Personal Factors/Comorbidities 0 Number of Body Systems Impaired 1-2 Clinical Presentation at Evaluation Evolving Impairments Impairments Functional Activities,ROM Progress Towards Goals Progress Towards Goals Slow Progress due to Medical Issues Progress Comments limited by post fx restrictions Physical Therapy Plan Frequency and Duration Duration of Treatment 6weeks Plan of Care Start Date 09/22/20 Plan of Care End Date 12/04/20 Therapeutic Interventions Modalities Hot Packs Next Visit Focus/Plan Next Note Type Treatment Note Next Visit Plan progress PROM with cane, use hot packs initially
--- NOTE | 2020-10-06 10:48 | PT.OTN ---
Current Diagnoses Weakness (10/06/20) Unspecified fracture of upper end of right humerus, subsequent encounter for fracture with routine healing (10/06/20) Physical Therapy Treatment Note PT-OP-A Visit Information Start: 09/22/20 08:17 Freq: Status: Active Protocol: Document 10/06/20 10:38 OF (Rec: 10/06/20 10:48 OF [email or web address]) Out-Patient Physical Therapy Visit Information Visit Information Visit Type Treatment Note Visit Note Pt reports HEP difficulty, continued use of sling as instructed Visit Start Time 09:49 Visit Stop Time 10:30 Total Visit Minutes 41 Visit Number 4 Evaluation Information Evaluation Date 09/22/20 Precautions Precautions No AROM R shldr ABD, Ext. Rot . 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 She demonstrates normal gait pattern and dynamic balance PT-OP-C Subjective Start: 09/22/20 08:17 Freq: Status: Active Protocol: Document 10/06/20 10:38 OF (Rec: 10/06/20 10:48 OF [email or web address]) OP-PT Subjective Patient Comments Patient Comments Pt reports HEP as instructed, pain with PROM 2/10 Patient Reported Progress Improving OP-PT Pain Assessment Pain Assessment Grid Paper Pain Assessment Grid Completed No Location Right Shoulder Intensity 2 Scale Used Numeric (0 - 10) Description Aching,Radiating Frequency Frequent Pain Duration short Pain Aggravating Factors Changing Position,ADL's Pain Alleviating Factors Heat,Inactivity Home Pain Medication Use Pain Medications Used Yes Home Pain Medication Frequency occasional PT-OP-K Range of Motion Start: 09/22/20 08:17 Freq: Status: Active Protocol: Document 09/22/20 09:01 OF (Rec: 09/22/20 11:54 OF [email or web address]) Shoulder Goniometric Range of Motion Shoulder ROM Limitations Comments pt unable to perform R ext. rot or ABD per MD restrictions after fx PT-OP-Q Treatments Start: 09/22/20 08:17 Freq: Status: Active Protocol: Document 10/06/20 10:38 OF (Rec: 10/06/20 10:48 OF [email or web address]) Therapeutic Exercises Supine Exercises 1 Supine Exercise Name PROM R shoulder ABD to 90, flexion to 90 with full humeral support Side right Reps/Minutes 3x3min Comments Pt with cane self directed PROM with ext rot in seated, cues for no abd Sitting Exercises shldr retraction Side bilateral Reps/Minutes 3x5 Comments cues to keep humerus neutral, retract shoulder blades 2 Sitting Exercise Name wrist flex/ext/pron/sup/ gripping Side right Comments pt agreeable to progressing with 3# while supporting forearm Standing Exercises 1 Standing Exercise Name pendulum Side right Reps/Minutes 30sec bidirectional Manual Therapy Treatment Soft Tissue Mobilization 1 Mobilization Type Myofascial Release Intensity/Depth Moderate Body Position Supine Comments R deltoid, tricep Self-Care/Home Management Treatment Education Patient Education Body Mechanics,Fall Risk,Joint Protection Activities Self-Care/Home Management Activities pt advised to perform HEP without shoulder ABD, she demonstrates with towel under arm for cue. PROM only, avoiding AROM of R shoulder per MD orders PT-OP-T Assessment and Plan Start: 09/22/20 08:17 Freq: Status: Active Protocol: Document 10/06/20 10:38 OF (Rec: 10/06/20 10:48 OF [email or web address]) Physical Therapy Assessment Rehab Potential Rehabilitation Potential Excellent Evaluation Complexity Number of Personal Factors/Comorbidities 0 Number of Body Systems Impaired 1-2 Clinical Presentation at Evaluation Stable Impairments Impairments Functional Activities,Soft Tissue Mobility,Strength Assessment Summary Assessment Pt requires demo for proper HEP performance, cues to avoid shldr abd. She has good control with PROM shile sup. She is eager to progress with AROM. Educated upon PROM only, following MD orders. Physical Therapy Plan Next Visit Focus/Plan Next Note Type Treatment Note Next Visit Plan progress PROM with cane, use hot packs initially, re assess ext rot to avoid abd. shldr retractions
--- NOTE | 2020-10-11 10:32 | PT.OTN ---
Current Diagnoses Weakness (10/11/20) Unspecified fracture of upper end of right humerus, subsequent encounter for fracture with routine healing (10/11/20) Physical Therapy Treatment Note PT-OP-A Visit Information Start: 09/22/20 08:17 Freq: Status: Active Protocol: Document 10/11/20 10:23 OF (Rec: 10/11/20 10:32 OF [id number]) Out-Patient Physical Therapy Visit Information Visit Information Visit Type Treatment Note Visit Start Time 09:44 Visit Stop Time 10:20 Total Visit Minutes 36 Visit Number 5 Evaluation Information Evaluation Date 09/22/20 Precautions Precautions No AROM R shldr ABD, Ext. Rot . (to be updated at MD visit ) PT-OP-B Current Condition Start: 09/22/20 08:17 Freq: Status: Active Protocol: Document 09/22/20 09:01 OF (Rec: 09/22/20 11:54 OF [email or web address]) Current Condition History of Current Condition Onset Date 08/29/20 Current Complaints pain in R shoulder, swelling in R UE History of Current Condition Pt has been using a sling time stamp assembler until last week when she was progressed to move out of sling while seated and perform pendulums. 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 She demonstrates normal gait pattern and dynamic balance PT-OP-C Subjective Start: 09/22/20 08:17 Freq: Status: Active Protocol: Document 10/11/20 10:23 OF (Rec: 10/11/20 10:32 OF [id number]) OP-PT Subjective Patient Comments Patient Comments pt states she has been performing HEP. Adhering to precautions. Patient Reported Progress Improving OP-PT Pain Assessment Pain Assessment Grid Paper Pain Assessment Grid Completed pt denies pain today Home Pain Medication Use Pain Medications Used Yes: tylenol PT-OP-K Range of Motion Start: 09/22/20 08:17 Freq: Status: Active Protocol: Document 09/22/20 09:01 OF (Rec: 09/22/20 11:54 OF [email or web address]) Shoulder Goniometric Range of Motion Shoulder ROM Limitations Comments pt unable to perform R ext. rot or ABD per MD restrictions after fx PT-OP-Q Treatments Start: 09/22/20 08:17 Freq: Status: Active Protocol: Document 10/11/20 10:23 OF (Rec: 10/11/20 10:32 OF [id number]) Therapeutic Exercises Supine Exercises 1 Supine Exercise Name PROM R shoulder ABD to 90, flexion to 100 with full humeral support Side right Reps/Minutes 3x3min Comments Pt with cane self directed PROM with ext rot in seated, cues for no abd Sidelying Exercises PROM flexion, ext rot Side right Reps/Minutes 3x1min Comments therapist providing PROM in pain free range to 100 flexion , 25 degrees ext Sitting Exercises 2 Sitting Exercise Name wrist flex/ext/pron/sup/ gripping Side right Comments pt agreeable to progressing with 3# while supporting forearm 1 Sitting Exercise Name bicep curls unweighted Side right Reps/Minutes 3x10 Comments for HEP Standing Exercises 1 Standing Exercise Name pendulum Side right Reps/Minutes [id number] bidirectional Comments for HEP Self-Care/Home Management Treatment Education Patient Education Home Exercise Program,Joint Protection,Safety PT-OP-T Assessment and Plan Start: 09/22/20 08:17 Freq: Status: Active Protocol: Document 10/11/20 10:23 OF (Rec: 10/11/20 10:32 OF [id number]) Physical Therapy Assessment Rehab Potential Rehabilitation Potential Excellent Evaluation Complexity Number of Personal Factors/Comorbidities 1-2 Number of Body Systems Impaired 1-2 Clinical Presentation at Evaluation Stable Impairments Impairments Functional Activities,Pain,ROM Progress Towards Goals Progress Towards Goals Progressing Toward Goals Progress Comments limited by post fx restrictions Assessment Summary Assessment Pt requires demo for proper HEP performance, cues to avoid shldr abd. She has good control with PROM shile sup. She is eager to progress with AROM. Educated upon PROM only, following MD orders and progression after MD appt next week. Physical Therapy Plan Next Visit Focus/Plan Next Note Type Treatment Note Next Visit Plan pt will have seen MD, should have new orders for AROM. She has difficulty adhering to PROM only at this time. She is travelling and would like HEP for new protocol while she is gone. 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
--- NOTE | 2020-10-20 09:50 | PT.OTN ---
Current Diagnoses Weakness (10/20/20) Unspecified fracture of upper end of right humerus, subsequent encounter for fracture with routine healing (10/20/20) Physical Therapy Treatment Note PT-OP-A Visit Information Start: 09/22/20 08:17 Freq: Status: Active Protocol: Document 10/20/20 09:00 DCW (Rec: 10/20/20 09:49 DCW [id number]) Out-Patient Physical Therapy Visit Information Visit Information Visit Type Treatment Note Visit Start Time 09:00 Visit Stop Time 09:45 Total Visit Minutes 45 Visit Number 6 Evaluation Information Evaluation Date 09/22/20 Precautions Precautions No AROM R shldr ABD, Ext. Rot . (to be updated at MD visit ) PT-OP-B Current Condition Start: 09/22/20 08:17 Freq: Status: Active Protocol: Document 09/22/20 09:01 OF (Rec: 09/22/20 11:54 OF [email or web address]) Current Condition History of Current Condition Onset Date 08/29/20 Current Complaints pain in R shoulder, swelling in R UE History of Current Condition Pt has been using a sling multimedia developer until last week when she was progressed to move out of sling while seated and perform pendulums. 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 She demonstrates normal gait pattern and dynamic balance PT-OP-C Subjective Start: 09/22/20 08:17 Freq: Status: Active Protocol: Document 10/20/20 09:00 DCW (Rec: 10/20/20 09:49 DCW [id number]) OP-PT Subjective Patient Comments Patient Comments Pt has been cleared for AROM by her surgeon yesterday, still no pushing, pulling, or lifting weight. PT-OP-K Range of Motion Start: 09/22/20 08:17 Freq: Status: Active Protocol: Document 09/22/20 09:01 OF (Rec: 09/22/20 11:54 OF [email or web address]) Shoulder Goniometric Range of Motion Shoulder ROM Limitations Comments pt unable to perform R ext. rot or ABD per MD restrictions after fx PT-OP-Q Treatments Start: 09/22/20 08:17 Freq: Status: Active Protocol: Document 10/20/20 09:00 DCW (Rec: 10/20/20 09:49 DCW [id number]) Therapeutic Exercises Supine Exercises 2 Supine Exercise Name Supine AROM Flexion Side right 1 Supine Exercise Name PROM R Flexion, Abduction Side right Sidelying Exercises 1 Sidelying Exercise Name Sleeper stretch Sitting Exercises 3 Sitting Exercise Name AAROM Side right Equipment Used PVC Comments Flexion, Abd, ER Standing Exercises 2 Standing Exercise Name Wall walk Side right Comments Flexion, Abduction Manual Therapy Treatment Soft Tissue Mobilization 1 Mobilization Type Myofascial Release Intensity/Depth Moderate Body Position Supine Comments R deltoid, tricep, lat PT-OP-T Assessment and Plan Start: 09/22/20 08:17 Freq: Status: Active Protocol: Document 10/20/20 09:00 DCW (Rec: 10/20/20 09:49 DCW [id number]) Physical Therapy Assessment Impairments Impairments Functional Activities,Pain,ROM Goals Four Impairment R ue weakness Short Term Goal (STG) Pt will improve R shoulder strength in all planes to 2/5 to initiate ADL STG Duration 2 weeks Retirement Goal (LTG) Pt will improve R shoulder strength in all planes to 4/5 to return to work and achieve symmetry with L shoulder Three Impairment quickdash Kennel Worker Goal (LTG) Pt will improve quickdash to < 20% to demonstrate improved function with R UE LTG Duration 6 weeks Two Impairment loss of R shoulder ext rot Short Term Goal (STG) pt will demo 20 degrees ext rot to initiate ADL with R UE STG Duration 2 weeks Retirement Goal (LTG) Pt will demo 40 degrees of ext rot to return to I PLOF and work LTG Duration 6 weeks One Impairment Loss of R shoulder ROM Short Term Goal (STG) Pt will demo R shoulder flexion to 90 degrees to initiate overhead activities STG Duration 2 weeks Kennel Worker Goal (LTG) Pt will demo 180 degrees R shoulder flexion to return to normal PLOF LTG Duration 6 weeks Assessment Summary Assessment Pt did well with first session allowed AROM, tolerated treatment well. Stiffness limited ROM, but pt showed improvement over course of treatment session. Pt going on two week vacation, received HEP to perform while away from PT. Physical Therapy Plan Frequency and Duration Frequency of Treatment 1x/Week Duration of Treatment 6weeks Plan of Care Start Date 09/22/20 Plan of Care End Date 12/04/20 Next Visit Focus/Plan Next Note Type Treatment Note Next Visit Plan Pt cleared for AROM, still no weight-lifting
--- NOTE | 2020-11-07 17:58 | PT.OTN ---
Current Diagnoses Weakness (11/07/20) Unspecified fracture of upper end of right humerus, subsequent encounter for fracture with routine healing (11/07/20) Physical Therapy Treatment Note PT-OP-A Visit Information Start: 09/22/20 08:17 Freq: Status: Active Protocol: Document 11/07/20 09:55 [facility] (Rec: 11/07/20 10:23 [facility] [id number]) Out-Patient Physical Therapy Visit Information Visit Information Visit Type Treatment Note Visit Start Time 09:55 Visit Stop Time 10:35 Total Visit Minutes 45 Visit Number 7 Evaluation Information Evaluation Date 09/22/20 PT-OP-B Current Condition Start: 09/22/20 08:17 Freq: Status: Active Protocol: Document 09/22/20 09:01 OF (Rec: 09/22/20 11:54 OF [email or web address]) Current Condition History of Current Condition Onset Date 08/29/20 Current Complaints pain in R shoulder, swelling in R UE History of Current Condition Pt has been using a sling mining machinery assembler until last week when she was progressed to move out of sling while seated and perform pendulums. 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 She demonstrates normal gait pattern and dynamic balance PT-OP-C Subjective Start: 09/22/20 08:17 Freq: Status: Active Protocol: Document 11/07/20 09:55 [facility] (Rec: 11/07/20 17:58 [facility] [id number]) OP-PT Subjective Patient Comments Patient Comments pt reports she has been working on all her AAROM given to her at home. She has MD visit 11/15/20 PT-OP-K Range of Motion Start: 09/22/20 08:17 Freq: Status: Active Protocol: Document 11/07/20 09:55 [facility] (Rec: 11/07/20 10:23 [facility] [id number]) Shoulder Goniometric Range of Motion Shoulder ROM Limitations Comments 120 degrees AAROM on the right 160 degrees AROM left PT-OP-Q Treatments Start: 09/22/20 08:17 Freq: Status: Active Protocol: Document 11/07/20 09:55 [facility] (Rec: 11/07/20 10:50 [facility] [id number]) Therapeutic Exercises Supine Exercises supine ER with wand AAROM Reps/Minutes x 20 reps 2 Supine Exercise Name Supine AROM Flexion Side right 1 Supine Exercise Name PROM R Flexion, Abduction Side right Sidelying Exercises reach and pull Reps/Minutes x 10 reps 1 Sidelying Exercise Name Sleeper stretch Sitting Exercises standing shoulder IR with strap Reps/Minutes x 10 standing shouler extension with wand Reps/Minutes x 20 3 Sitting Exercise Name AAROM Side right Equipment Used PVC Comments Flexion, Abd, ER shldr retraction Side bilateral Reps/Minutes 3x5 Comments cues to keep humerus neutral, retract shoulder blades 1 Reps/Minutes 3x10 Comments for HEP Standing Exercises pec minor door way stretch] Reps/Minutes 1-2 reps hold 30 sec each 2 Standing Exercise Name Wall walk Side right Comments Flexion, Abduction Manual Therapy Treatment Soft Tissue Mobilization 1 Mobilization Type Myofascial Release Intensity/Depth Moderate Body Position Supine Comments R deltoid, tricep, lat Joint Mobilizations PROM right shoulder all planes Joint right shoulder PROM right shoulder all planes Manual Techniques sidelying scapular mobilization Comments able to get a gentle pec minor stretch in sidelying PT-OP-T Assessment and Plan Start: 09/22/20 08:17 Freq: Status: Active Protocol: Document 11/07/20 09:55 [facility] (Rec: 11/07/20 17:57 [facility] [id number]) Physical Therapy Assessment Assessment Summary Assessment pt returned to PT after being gone on vacation. She has been working on AAROM given to her last visit. She reports tightness with all ranges. She sees her MD 11/15/20 for a follow up Xray. I progressed her AAROM exercises today and she tolerated this well Physical Therapy Plan Frequency and Duration Frequency of Treatment 1x/Week Duration of Treatment 6weeks Plan of Care Start Date 09/22/20 Plan of Care End Date 12/04/20 Therapeutic Interventions Therapeutic Interventions Home Exercise Program,Manual Therapy,Patient/Caregiver Education,Self-Care/Home Management,Soft Tissue Mobilization,Therapeutic Exercises Next Visit Focus/Plan Next Note Type Treatment Note Next Visit Plan Pt cleared for AROM, still no weight-lifting. Pt to see 11/15/20 for follow up Xray
--- NOTE | 2020-11-14 13:07 | PT.OTN ---
Current Diagnoses Weakness (11/14/20) Unspecified fracture of upper end of right humerus, subsequent encounter for fracture with routine healing (11/14/20) Physical Therapy Treatment Note PT-OP-A Visit Information Start: 09/22/20 08:17 Freq: Status: Active Protocol: Document 11/14/20 09:43 OF (Rec: 11/14/20 13:07 OF [id number]) Out-Patient Physical Therapy Visit Information Visit Information Visit Type Treatment Note Visit Note Pt reports HEP as instructed Visit Start Time 09:03 Visit Stop Time 09:43 Total Visit Minutes 40 Visit Number 8 Evaluation Information Evaluation Date 09/22/20 Precautions Precautions AROM permitted, no resistance, appt 11/21 PT-OP-B Current Condition Start: 09/22/20 08:17 Freq: Status: Active Protocol: Document 09/22/20 09:01 OF (Rec: 09/22/20 11:54 OF [email or web address]) Current Condition History of Current Condition Onset Date 08/29/20 Current Complaints pain in R shoulder, swelling in R UE History of Current Condition Pt has been using a sling time stamp assembler until last week when she was progressed to move out of sling while seated and perform pendulums. 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 She demonstrates normal gait pattern and dynamic balance PT-OP-C Subjective Start: 09/22/20 08:17 Freq: Status: Active Protocol: Document 11/14/20 09:43 OF (Rec: 11/14/20 13:07 OF [id number]) OP-PT Subjective Patient Comments Patient Comments Pt states she has been performing HEP and progressing AAROM Patient Reported Progress Improving OP-PT Pain Assessment Pain Assessment Grid Paper Pain Assessment Grid Completed No: pt denies pain at rest, pain at worst 2/10 PT-OP-K Range of Motion Start: 09/22/20 08:17 Freq: Status: Active Protocol: Document 11/07/20 09:55 [facility] (Rec: 11/07/20 10:23 [facility] [id number]) Shoulder Goniometric Range of Motion Shoulder ROM Limitations Comments 120 degrees AAROM on the right 160 degrees AROM left PT-OP-Q Treatments Start: 09/22/20 08:17 Freq: Status: Active Protocol: Document 11/14/20 09:43 OF (Rec: 11/14/20 13:07 OF [id number]) Therapeutic Exercises Supine Exercises PNF Supine Exercise Name d2 flex/ext Side right Reps/Minutes 2x10 with AAROM due to fatigue supine ER with wand AAROM Side right Reps/Minutes x 20 reps 2 Supine Exercise Name Supine AROM Flexion Side right 1 Supine Exercise Name PROM R Flexion, Abduction Side right Sidelying Exercises reach and pull Reps/Minutes x 10 reps 1 Sidelying Exercise Name Sleeper stretch Comments pt declined due to stiffness PROM flexion, ext rot Side right Reps/Minutes 3x1min Comments therapist providing PROM in pain free range to 100 flexion , 25 degrees ext Sitting Exercises pulleys Side bilateral Reps/Minutes 3min Comments AAROM for flexion/abd standing shouler extension with wand Reps/Minutes x 20 Standing Exercises 2 Standing Exercise Name Wall walk Side right Reps/Minutes 2x1min Comments Flexion, Abduction Self-Care/Home Management Treatment Education Patient Education Body Mechanics,Home Exercise Program PT-OP-T Assessment and Plan Start: 09/22/20 08:17 Freq: Status: Active Protocol: Document 11/14/20 09:43 OF (Rec: 11/14/20 13:07 OF [id number]) Physical Therapy Assessment Rehab Potential Rehabilitation Potential Excellent Evaluation Complexity Number of Personal Factors/Comorbidities 1-2 Number of Body Systems Impaired 1-2 Clinical Presentation at Evaluation Stable Impairments Impairments Activity Tolerance,Soft Tissue Mobility,Strength Goals Four Impairment R ue weakness Short Term Goal (STG) Pt will improve R shoulder strength in all planes to 2/5 to initiate ADL STG Duration MET 7/20 Intermediate Goal (LTG) Pt will improve R shoulder strength in all planes to 4/5 to return to work and achieve symmetry with L shoulder Three Impairment quickdash Sole Sewer Hand Goal (LTG) Pt will improve quickdash to < 20% to demonstrate improved function with R UE LTG Duration 6 weeks Two Impairment loss of R shoulder ext rot Short Term Goal (STG) pt will demo 20 degrees ext rot to initiate ADL with R UE STG Duration MET 11/14 Sole Sewer Hand Goal (LTG) Pt will demo 40 degrees of ext rot to return to I PLOF and work LTG Duration 6 weeks One Impairment Loss of R shoulder ROM Short Term Goal (STG) Pt will demo R shoulder flexion to 90 degrees to initiate overhead activities STG Duration 2 weeks Sole Sewer Hand Goal (LTG) Pt will demo 180 degrees R shoulder flexion to return to normal PLOF LTG Duration 6 weeks Progress Towards Goals Progress Towards Goals Progressing Toward Goals Assessment Summary Assessment Roma has improved her AROM of R shoulder and has been cleared for all AROM. She is awaiting resistance/ weightbearing clearance from MD next week. She is ready to progress exercises if cleared. She has improved her HEP performance Physical Therapy Plan Frequency and Duration Frequency of Treatment 1x/Week Duration of Treatment 6weeks Plan of Care Start Date 09/22/20 Plan of Care End Date 12/04/20 Next Visit Focus/Plan Next Note Type Treatment Note Next Visit Plan reassess HEP performance, sleeper stretch or post IR
--- NOTE | 2020-11-16 13:28 | PT.OTN ---
Current Diagnoses Weakness (11/16/20) Unspecified fracture of upper end of right humerus, subsequent encounter for fracture with routine healing (11/16/20) Physical Therapy Treatment Note PT-OP-A Visit Information Start: 09/22/20 08:17 Freq: Status: Active Protocol: Document 11/16/20 09:42 OF (Rec: 11/16/20 13:28 OF [id number]) Out-Patient Physical Therapy Visit Information Visit Information Visit Type Treatment Note Visit Start Time 08:58 Visit Stop Time 09:42 Total Visit Minutes 44 Visit Number 9 Evaluation Information Evaluation Date 09/22/20 Precautions Precautions AROM permitted, no resistance, MD appt 11/21 PT-OP-B Current Condition Start: 09/22/20 08:17 Freq: Status: Active Protocol: Document 09/22/20 09:01 OF (Rec: 09/22/20 11:54 OF [id number]) Current Condition History of Current Condition Onset Date 08/29/20 Current Complaints pain in R shoulder, swelling in R UE History of Current Condition Pt 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 She demonstrates normal gait pattern and dynamic balance PT-OP-C Subjective Start: 09/22/20 08:17 Freq: Status: Active Protocol: Document 11/16/20 09:42 OF (Rec: 11/16/20 13:28 OF [id number]) OP-PT Subjective Patient Comments Patient Comments pt states she was sore in deltoid yesterday Patient Reported Progress Improving OP-PT Pain Assessment Location Right Shoulder Intensity 2 Scale Used Numeric (0 - 10) Description Aching,Sharp Frequency Frequent Pain Duration short Pain Aggravating Factors Changing Position,ADL's Pain Alleviating Factors Heat,Inactivity PT-OP-K Range of Motion Start: 09/22/20 08:17 Freq: Status: Active Protocol: Document 11/07/20 09:55 [facility] (Rec: 11/07/20 10:23 AMH [id number]) Shoulder Goniometric Range of Motion Shoulder ROM Limitations Comments 120 degrees AAROM on the right 160 degrees AROM left PT-OP-Q Treatments Start: 09/22/20 08:17 Freq: Status: Active Protocol: Document 11/16/20 09:42 OF (Rec: 11/16/20 13:28 OF [id number]) Therapeutic Exercises Supine Exercises PNF Supine Exercise Name D2 and D1 flex/ext Side right Reps/Minutes 2x10 with AAROM due to fatigue supine ER with wand AAROM Side right Reps/Minutes x 20 reps 2 Supine Exercise Name Supine AROM Flexion Side right 1 Supine Exercise Name PROM R Flexion, Abduction Side right Sidelying Exercises 1 Sidelying Exercise Name Sleeper stretch Side right Reps/Minutes [id number] PROM flexion, ext rot Side right Reps/Minutes 3x1min Comments therapist providing PROM in pain free range to 100 flexion , limited ext tod Sitting Exercises pulleys Side bilateral Reps/Minutes 3min Comments AAROM for flexion/abd standing shouler extension with wand Reps/Minutes x 20 shldr retraction Side bilateral Reps/Minutes 3x5 Comments cues to keep humerus neutral, retract shoulder blades Standing Exercises pec minor door way stretch] Reps/Minutes 1-2 reps hold 30 sec each 2 Standing Exercise Name Wall walk Side right Reps/Minutes 2x1min Comments Flexion, Abduction Manual Therapy Treatment Soft Tissue Mobilization 1 Mobilization Type Myofascial Release Intensity/Depth Moderate Body Position Supine Comments R deltoid, tricep, lat Self-Care/Home Management Treatment Education Patient Education Home Exercise Program PT-OP-T Assessment and Plan Start: 09/22/20 08:17 Freq: Status: Active Protocol: Document 11/16/20 09:42 OF (Rec: 11/16/20 13:28 OF [id number]) Physical Therapy Assessment Rehab Potential Rehabilitation Potential Good Evaluation Complexity Number of Personal Factors/Comorbidities 1-2 Number of Body Systems Impaired 1-2 Clinical Presentation at Evaluation Stable Impairments Impairments ROM,Soft Tissue Mobility, Strength Goals Four Impairment R ue weakness Short Term Goal (STG) Pt will improve R shoulder strength in all planes to 2/5 to initiate ADL STG Duration MET 7/20 Brick Grader Goal (LTG) Pt will improve R shoulder strength in all planes to 4/5 to return to work and achieve symmetry with L shoulder Three Impairment quickdash Halfway Goal (LTG) Pt will improve quickdash to < 20% to demonstrate improved function with R UE LTG Duration 6 weeks Two Impairment loss of R shoulder ext rot Short Term Goal (STG) pt will demo 20 degrees ext rot to initiate ADL with R UE STG Duration MET 11/14 Brick Grader Goal (LTG) Pt will demo 40 degrees of ext rot to return to I PLOF and work LTG Duration 6 weeks One Impairment Loss of R shoulder ROM Short Term Goal (STG) Pt will demo R shoulder flexion to 90 degrees to initiate overhead activities STG Duration 2 weeks Brick Grader Goal (LTG) Pt will demo 180 degrees R shoulder flexion to return to normal PLOF LTG Duration 6 weeks Progress Towards Goals Progress Towards Goals Progressing Toward Goals Assessment Summary Assessment Pt has improved tolerance for AAROM, she is limited by flexion and int rotation. She has yet to be cleared for resistance training. She will require continued intervention to improve shoulder ROM and initiate strength training once cleared by MD Physical Therapy Plan Frequency and Duration Frequency of Treatment 1x/Week Duration of Treatment 6weeks Plan of Care Start Date 09/22/20 Plan of Care End Date 12/04/20 Next Visit Focus/Plan Next Note Type Treatment Note Next Visit Plan reassess HEP performance, sleeper stretch or post IR, PNF for R shoulder
--- NOTE | 2020-11-24 10:36 | PT.OTN ---
Current Diagnoses Weakness (11/24/20) Unspecified fracture of upper end of right humerus, subsequent encounter for fracture with routine healing (11/24/20) Physical Therapy Treatment Note PT-OP-A Visit Information Start: 09/22/20 08:17 Freq: Status: Active Protocol: Document 11/24/20 09:48 SP (Rec: 11/24/20 11:47 SP [id number]) Out-Patient Physical Therapy Visit Information Visit Information Visit Type Treatment Note Visit Start Time 09:47 Visit Stop Time 10:36 Total Visit Minutes 49 Visit Number 10 Number of MONITOR TECH Visits 1 Evaluation Information Evaluation Date 09/22/20 Precautions Precautions AROM permitted, no resistance, MD appt 11/21 PT-OP-B Current Condition Start: 09/22/20 08:17 Freq: Status: Active Protocol: Document 09/22/20 09:01 OF (Rec: 09/22/20 11:54 OF [email or web address]) Current Condition History of Current Condition Onset Date 08/29/20 Current Complaints pain in R shoulder, swelling in R UE History of Current Condition 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 She demonstrates normal gait pattern and dynamic balance PT-OP-C Subjective Start: 09/22/20 08:17 Freq: Status: Active Protocol: Document 11/24/20 09:48 SP (Rec: 11/24/20 11:47 SP [id number]) OP-PT Subjective Patient Comments Patient Comments Pt stated saw physician on and cleared for start strengthening. Patient Reported Progress Improving PT-OP-K Range of Motion Start: 09/22/20 08:17 Freq: Status: Active Protocol: Document 11/07/20 09:55 AMH (Rec: 11/07/20 10:23 AMH [id number]) Shoulder Goniometric Range of Motion Shoulder ROM Limitations Comments 120 degrees AAROM on the right 160 degrees AROM left PT-OP-Q Treatments Start: 09/22/20 08:17 Freq: Status: Active Protocol: Document 11/24/20 09:48 SP (Rec: 11/24/20 11:47 SP [id number]) Therapeutic Exercises Supine Exercises AROM measurements Supine Exercise Name FF: 118 deg, ABD 93* w/ flex compenstation, 60deg ER arm at side Side right Resistance AROM Reps/Minutes 1 rep each PNF Supine Exercise Name D2 and D1 flex/ext Side right Reps/Minutes 2x10 with AAROM due to fatigue supine ER with wand AAROM Side right Resistance wand #2 leg wt attached Reps/Minutes x 10 reps Comments cued slow pacing control Sidelying Exercises open book Sidelying Exercise Name shld and scapular HABD w/ TS rotation Side right Reps/Minutes x8 Comments cued head with hand, good form and pain free range ( R shld < 90 * abd) Shld abd Sidelying Exercise Name added to HEP Side right Resistance AROM Reps/Minutes 2x5 Comments painfree range Shld ER Sidelying Exercise Name added to HEP- add # next if prateek Side right Resistance AROM Reps/Minutes x10 Comments good alignment and form not over pressure reach and pull Sidelying Exercise Name good HEP Reps/Minutes x 10 reps Comments to easy progressed to TB row Sitting Exercises pulleys Sitting Exercise Name FF, abd (reviewed HEP) Resistance PROM Equipment Used mirror for self feedback decrease UT recruitment Reps/Minutes 3 min Comments improved decrease UT recruitment shldr retraction Sitting Exercise Name reviewed HEP Side bilateral Reps/Minutes 3x5 Comments cues to keep humerus neutral, retract shoulder blades Standing Exercises 2 Standing Exercise Name Wall walk Side right Equipment Used HOLD FOR NOW DUE TO COMPENSTAIONS Reps/Minutes 2x1min Comments Flexion, Abduction Manual Therapy Treatment Joint Mobilizations GH Jt gides Joint R Direction inf, post Grade II Body Position Hooklying Comments good feedback response PROM right shoulder all planes Joint PROM R shoulder all planes Comments good feedback response, limited in ABD> FF PT-OP-T Assessment and Plan Start: 09/22/20 08:17 Freq: Status: Active Protocol: Document 11/24/20 09:48 SP (Rec: 11/24/20 11:47 SP [id number]) Physical Therapy Assessment Goals Four Impairment R ue weakness Short Term Goal (STG) Pt will improve R shoulder strength in all planes to 2/5 to initiate ADL STG Duration MET 11/14 Glass Curvature Gauger Goal (LTG) Pt will improve R shoulder strength in all planes to 4/5 to return to work and achieve symmetry with L shoulder Three Impairment quickdash Glass Curvature Gauger Goal (LTG) Pt will improve quickdash to < 20% to demonstrate improved function with R UE LTG Duration 6 weeks Two Impairment loss of R shoulder ext rot Short Term Goal (STG) pt will demo 20 degrees ext rot to initiate ADL with R UE STG Duration MET 11/14 Glass Curvature Gauger Goal (LTG) Pt will demo 40 degrees of ext rot to return to I PLOF and work LTG Duration 6 weeks One Impairment Loss of R shoulder ROM Short Term Goal (STG) Pt will demo R shoulder flexion to 90 degrees to initiate overhead activities 11/24/20: goal met: SUPINE: AROM during FF: 118 deg, ABD 93* w/ flex compensation, 60deg ER arm at side STG Duration 2 weeks GOAL MET Nursing Home Goal (LTG) Pt will demo 180 degrees R shoulder flexion to return to normal PLOF LTG Duration 6 weeks Progress Towards Goals Progress Towards Goals Progressing Toward Goals Progress Comments Met STG #1 Assessment Summary Assessment Pt is making progress in ROM, cues required for decreased UT recruitment during R shld FF, abd, Er. Initiated R shld ER & abd on side AROM prateek range, open book/HABD for TS mob and reviewed HEP pulleys. Pull and reach easy so will add TB rows and ext next tx. Physical Therapy Plan Frequency and Duration Frequency of Treatment 1x/Week Duration of Treatment 6weeks Plan of Care Start Date 09/22/20 Plan of Care End Date 12/04/20 Therapeutic Interventions Therapeutic Interventions Home Exercise Program,Manual Therapy,Patient/Caregiver Education,Self-Care/Home Management,Soft Tissue Mobilization,Therapeutic Exercises Next Visit Focus/Plan Next Note Type Treatment Note Next Visit Plan Review HEP, add TB shld row/ ext if tolerated. Hold wall slide and perform jessica until improve range. POC expiring . Pt cancelled 12/06 appt with MONITOR TECH so can update with PT Danish on12/13. POC: reassess HEP performance, sleeper stretch or post IR, PNF for R shoulder
--- NOTE | 2020-12-01 09:55 | PT.OTN ---
Current Diagnoses Weakness (12/01/20) Unspecified fracture of upper end of right humerus, subsequent encounter for fracture with routine healing (12/01/20) Physical Therapy Treatment Note PT-OP-A Visit Information Start: 09/22/20 08:17 Freq: Status: Active Protocol: Document 12/01/20 09:06 SP (Rec: 12/01/20 11:45 SP [id number]) Out-Patient Physical Therapy Visit Information Visit Information Visit Type Treatment Note Visit Note PN and updated POC next tx, POC expires 12/04/20. 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 She demonstrates normal gait pattern and dynamic balance PT-OP-C Subjective Start: 09/22/20 08:17 Freq: Status: Active Protocol: Document 12/01/20 09:06 SP (Rec: 12/01/20 11:45 SP [id number]) OP-PT Subjective Patient Comments Patient Comments Pt stated felt ok after last appt, stiff in am, compliant with pulleys and Hep 1x/day. Patient Reported Progress Improving PT-OP-K Range of Motion Start: 09/22/20 08:17 Freq: Status: Active Protocol: Document 12/01/20 09:06 SP (Rec: 12/01/20 11:45 SP [id number]) Shoulder Goniometric Range of Motion Shoulder R shld Shoulder ROM WFL No Flexion 136 Extension 42 Abduction 88 External Rotation at 45 degrees 50 Abduction Internal Rotation Behind Back (text) behind R glut Comments Unsure previous ROM. Today's AROM all measurements: supine (post modified partridge protocol) ABD AROM w/ flex compensations , decrease from 93 last tx. PT-OP-Q Treatments Start: 09/22/20 08:17 Freq: Status: Active Protocol: Document 12/01/20 09:06 SP (Rec: 12/01/20 11:45 SP [id number]) Therapeutic Exercises Supine Exercises AROM measurements Supine Exercise Name FF shoulder Side right Resistance AROM Equipment Used dowel Reps/Minutes x10 Comments improved ROM post modified partridge protocol prone/L sidelying supine ER with wand AAROM Side right Resistance AROM Reps/Minutes x 10 reps Comments cued slow pacing control Sidelying Exercises open book Sidelying Exercise Name shld and scapular HABD w/ TS rotation Side right Resistance AAROM Equipment Used reviewed and painfree range Reps/Minutes x8 Comments cued head with hand, good form and pain free range ( R shld < 90 * abd) Shld abd Sidelying Exercise Name added to HEP-discussed not performed today Side right Resistance AROM Reps/Minutes 2x5 Comments painfree range Shld ER Sidelying Exercise Name pt stated really easy and wants to do band standing so DC'd today Side right Reps/Minutes discussed not performed Sitting Exercises pulleys Sitting Exercise Name FF, abd (reviewed HEP) Side right Resistance PROM Equipment Used mirror for self feedback decrease UT recruitment Reps/Minutes x10 each direction Comments improved decrease UT recruitment shldr retraction Sitting Exercise Name reviewed HEP Side bilateral Reps/Minutes 3x5 Comments cues to keep humerus neutral inf glide, retract shoulder blades Standing Exercises resisted rows Standing Exercise Name added to HEP Side bilateral Resistance Tb #1 Reps/Minutes x10 Comments cued scap retract/ depress and inf glide humerus for comfort pos- good resp resisted shld ER Standing Exercise Name w/ towel roll under arm (added to HEP) Side right Resistance Tb#1 Reps/Minutes x10 Comments cued scap retract/ depress and inf glide humerus for comfort pos- good resp Manual Therapy Treatment Soft Tissue Mobilization 1 Body Location R subscap, teres, UT, deltoid, distal lat Mobilization Type Myofascial Release,Strumming, Sustained Pressure Intensity/Depth Moderate Body Position Supine Comments manual, assessed using ball roll at wall and to uncomfortable to stopped. Joint Mobilizations modified partridige protocol Joint R shld complex Reps/Duration 4 min total Comments ossilations: R scap: inf, across to opp SI directioning prone, L sidelying w/ arm supported relaxed approx 80 deg. PROM in L sidelying HABD painfree range. proximal clavical mob follow exhale then release w/ quick breath. improve ROM into FF and decreased tension in R shld reported. GH Jt gides Joint R Direction inf, post Grade II Body Position Hooklying Comments good feedback response PROM right shoulder all planes Joint PROM R shoulder all planes Comments good feedback response, limited in ABD> FF Self-Care/Home Management Treatment Education Patient Education Home Exercise Program Other Education Extra time spent education of scapular alignment and slow ROM during ther ex to allow decrease UT recruitment w/ improvement w/ cues and mirror feedback during pulleys. Initiated Tb rows and shld ER standing today with good self corrections and pain free. PT-OP-T Assessment and Plan Start: 09/22/20 08:17 Freq: Status: Active Protocol: Document 12/01/20 09:06 SP (Rec: 12/01/20 11:45 SP [id number]) Physical Therapy Assessment Goals Four Impairment R ue weakness Short Term Goal (STG) Pt will improve R shoulder strength in all planes to 2/5 to initiate ADL 11/14/20: Met 11/14 per PT previous tx carried over. STG Duration Goal MET 11/14 Media Marketing Specialist Goal (LTG) Pt will improve R shoulder strength in all planes to 4/5 to return to work and achieve symmetry with L shoulder Three Impairment quickdash [facility] Goal (LTG) Pt will improve quickdash to < 20% to demonstrate improved function with R UE LTG Duration 6 weeks Two Impairment loss of R shoulder ext rot Short Term Goal (STG) pt will demo 20 degrees ext rot to initiate ADL with R UE STG Duration MET 11/14 Media Marketing Specialist Goal (LTG) Pt will demo 40 degrees of ext rot to return to I PLOF and work 12/01/20: Goal Met 42 deg ext, measured in standing. LTG Duration 6 weeks (goal met 12/01/20) One Impairment Loss of R shoulder ROM Short Term Goal (STG) Pt will demo R shoulder flexion to 90 degrees to initiate overhead activities 11/24/20: goal met: SUPINE: AROM during FF: 118 deg, ABD 93* w/ flex compensation, 60deg ER arm at side 12/01/20: FF 132*, abd w/ flex compensation 50 *, IR behind back over buttocks with cues for proper alignment. STG Duration 2 weeks GOAL MET [facility] Goal (LTG) Pt will demo 180 degrees R shoulder flexion to return to normal PLOF 12/01/20: progressing 136 deg FF using wand. LTG Duration 6 weeks Progress Towards Goals Progress Towards Goals Progressing Toward Goals Progress Comments Met STG #4, Met Goal #2, Met STG # 1, progressing FF ROM LTG #1. Assessment Summary Assessment Pt is making progress in ROM, initiated TB resisted rows and shld ER on RUE with good feedback pain free while giving cues for scap stab alignment and inf glide of humerus pain free. Pt continues to need cues and mirror self feedback for scap and humerus inf glide during pulleys for self corrections and noted decrease UT recruitment and painfree. Pt Physical Therapy Plan Frequency and Duration Frequency of Treatment 1x/Week Duration of Treatment 6weeks Plan of Care Start Date 09/22/20 Plan of Care End Date 12/04/20 Therapeutic Interventions Therapeutic Interventions Home Exercise Program,Manual Therapy,Patient/Caregiver Education,Self-Care/Home Management,Soft Tissue Mobilization,Therapeutic Exercises Next Visit Focus/Plan Next Note Type Treatment Note Next Visit Plan Next tx need update POC, expiries 12/04. Pt will see new therapist for PN and request Dr to allow continued care for appts scheduled. Next: recheck jessica ROM, Tb rows & ER, supine FF dowel, scap retraction HEP. Didn't get all ther ex in past HEP review due to updated feedback goals and pt wanted start using TB and progress per physician clearance. Add sleeper stretch. POC: reassess HEP performance, sleeper stretch or post IR, PNF for R shoulder
--- NOTE | 2020-12-01 09:55 | PT.OTN ---
Current Diagnoses Weakness (12/01/20) Unspecified fracture of upper end of right humerus, subsequent encounter for fracture with routine healing (12/01/20) Physical Therapy Treatment Note PT-OP-A Visit Information Start: 09/22/20 08:17 Freq: Status: Active Protocol: Document 12/01/20 09:06 SP (Rec: 12/01/20 11:45 SP [id number]) Out-Patient Physical Therapy Visit Information Visit Information Visit Type Treatment Note Visit Note PN and updated POC next tx, POC expires 12/04/20. Asked for added tx later week to progress Visit Start Time 09:06 Visit Stop Time 09:55 Total Visit Minutes 49 Visit Number 11 Number of TESTING TECH Visits 2 Evaluation Information Evaluation Date 09/22/20 Precautions Precautions AROM permitted, no resistance, MD appt 11/21 PT-OP-B Current Condition Start: 09/22/20 08:17 Freq: Status: Active Protocol: Document 09/22/20 09:01 OF (Rec: 09/22/20 11:54 OF [id number]) Current Condition History of Current Condition Onset Date 08/29/20 Current Complaints pain in R shoulder, swelling in R UE History of Current Condition Pt has been using a sling timekeeper until last week when she was progressed to move out of sling while seated and perform pendulums. 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 She demonstrates normal gait pattern and dynamic balance PT-OP-C Subjective Start: 09/22/20 08:17 Freq: Status: Active Protocol: Document 12/01/20 09:06 SP (Rec: 12/01/20 11:45 SP [id number]) OP-PT Subjective Patient Comments Patient Comments Pt stated felt ok after last appt, stiff in am, compliant with pulleys and Hep 1x/day. Patient Reported Progress Improving PT-OP-K Range of Motion Start: 09/22/20 08:17 Freq: Status: Active Protocol: Document 12/01/20 09:06 SP (Rec: 12/01/20 11:45 SP [id number]) Shoulder Goniometric Range of Motion Shoulder R shld Shoulder ROM WFL No Flexion 136 Extension 42 Abduction 88 External Rotation at 45 degrees 50 Abduction Internal Rotation Behind Back (text) behind R glut Comments Unsure previous ROM. Today's AROM all measurements: supine (post modified partridge protocol) ABD AROM w/ flex compensations , decrease from 93 last tx. PT-OP-Q Treatments Start: 09/22/20 08:17 Freq: Status: Active Protocol: Document 12/01/20 09:06 SP (Rec: 12/01/20 11:45 SP [id number]) Therapeutic Exercises Supine Exercises AROM measurements Supine Exercise Name FF shoulder Side right Resistance AROM Equipment Used dowel Reps/Minutes x10 Comments improved ROM post modified partridge protocol prone/L sidelying supine ER with wand AAROM Side right Resistance AROM Reps/Minutes x 10 reps Comments cued slow pacing control Sidelying Exercises open book Sidelying Exercise Name shld and scapular HABD w/ TS rotation Side right Resistance AAROM Equipment Used reviewed and painfree range Reps/Minutes x8 Comments cued head with hand, good form and pain free range ( R shld < 90 * abd) Shld abd Sidelying Exercise Name added to HEP-discussed not performed today Side right Resistance AROM Reps/Minutes 2x5 Comments painfree range Shld ER Sidelying Exercise Name pt stated really easy and wants to do band standing so DC'd today Side right Reps/Minutes discussed not performed Sitting Exercises pulleys Sitting Exercise Name FF, abd (reviewed HEP) Side right Resistance PROM Equipment Used mirror for self feedback decrease UT recruitment Reps/Minutes x10 each direction Comments improved decrease UT recruitment shldr retraction Sitting Exercise Name reviewed HEP Side bilateral Reps/Minutes 3x5 Comments cues to keep humerus neutral inf glide, retract shoulder blades Standing Exercises resisted rows Standing Exercise Name added to HEP Side bilateral Resistance Tb #1 Reps/Minutes x10 Comments cued scap retract/ depress and inf glide humerus for comfort pos- good resp resisted shld ER Standing Exercise Name w/ towel roll under arm (added to HEP) Side right Resistance Tb#1 Reps/Minutes x10 Comments cued scap retract/ depress and inf glide humerus for comfort pos- good resp Manual Therapy Treatment Soft Tissue Mobilization 1 Body Location R subscap, teres, UT, deltoid, distal lat Mobilization Type Myofascial Release,Strumming, Sustained Pressure Intensity/Depth Moderate Body Position Supine Comments manual, assessed using ball roll at wall and to uncomfortable to stopped. Joint Mobilizations modified partridige protocol Joint R shld complex Reps/Duration 4 min total Comments ossilations: R scap: inf, across to opp SI directioning prone, L sidelying w/ arm supported relaxed approx 80 deg. PROM in L sidelying HABD painfree range. proximal clavical mob follow exhale then release w/ quick breath. improve ROM into FF and decreased tension in R shld reported. GH Jt gides Joint R Direction inf, post Grade II Body Position Hooklying Comments good feedback response PROM right shoulder all planes Joint PROM R shoulder all planes Comments good feedback response, limited in ABD> FF Self-Care/Home Management Treatment Education Patient Education Home Exercise Program Other Education Extra time spent education of scapular alignment and slow ROM during ther ex to allow decrease UT recruitment w/ improvement w/ cues and mirror feedback during pulleys. Initiated Tb rows and shld ER standing today with good self corrections and pain free. PT-OP-T Assessment and Plan Start: 09/22/20 08:17 Freq: Status: Active Protocol: Document 12/01/20 09:06 SP (Rec: 12/01/20 11:45 SP [id number]) Physical Therapy Assessment Goals Four Impairment R ue weakness Short Term Goal (STG) Pt will improve R shoulder strength in all planes to 2/5 to initiate ADL 11/14/20: Met 11/14 per PT previous tx carried over. STG Duration Goal MET 11/14 Brake Repairer Bus Goal (LTG) Pt will improve R shoulder strength in all planes to 4/5 to return to work and achieve symmetry with L shoulder Three Impairment quickdash Detention Goal (LTG) Pt will improve quickdash to < 20% to demonstrate improved function with R UE LTG Duration 6 weeks Two Impairment loss of R shoulder ext rot Short Term Goal (STG) pt will demo 20 degrees ext rot to initiate ADL with R UE STG Duration MET 11/14 Brake Repairer Bus Goal (LTG) Pt will demo 40 degrees of ext rot to return to I PLOF and work 12/01/20: Goal Met 42 deg ext, measured in standing. LTG Duration 6 weeks (goal met 12/01/20) One Impairment Loss of R shoulder ROM Short Term Goal (STG) Pt will demo R shoulder flexion to 90 degrees to initiate overhead activities 11/24/20: goal met: SUPINE: AROM during FF: 118 deg, ABD 93* w/ flex compensation, 60deg ER arm at side 12/01/20: FF 132*, abd w/ flex compensation 50 *, IR behind back over buttocks with cues for proper alignment. STG Duration 2 weeks GOAL MET Detention Goal (LTG) Pt will demo 180 degrees R shoulder flexion to return to normal PLOF 12/01/20: progressing 136 deg FF using wand. LTG Duration 6 weeks Progress Towards Goals Progress Towards Goals Progressing Toward Goals Progress Comments Met STG #4, Met Goal #2, Met STG # 1, progressing FF ROM LTG #1. Assessment Summary Assessment Pt is making progress in ROM, initiated TB resisted rows and shld ER on RUE with good feedback pain free while giving cues for scap stab alignment and inf glide of humerus pain free. Pt continues to need cues and mirror self feedback for scap and humerus inf glide during pulleys for self corrections and noted decrease UT recruitment and painfree. Pt Physical Therapy Plan Frequency and Duration Frequency of Treatment 1x/Week Duration of Treatment 6weeks Plan of Care Start Date 09/22/20 Plan of Care End Date 12/04/20 Therapeutic Interventions Therapeutic Interventions Home Exercise Program,Manual Therapy,Patient/Caregiver Education,Self-Care/Home Management,Soft Tissue Mobilization,Therapeutic Exercises Next Visit Focus/Plan Next Note Type Treatment Note Next Visit Plan Next tx need update POC, expiries 12/04. Pt will see new therapist for PN and request Dr to allow continued care for appts scheduled. Next: recheck jessica ROM, Tb rows & ER, supine FF dowel, scap retraction HEP. Didn't get all ther ex in past HEP review due to updated feedback goals and pt wanted start using TB and progress per physician clearance. Add sleeper stretch. POC: reassess HEP performance, sleeper stretch or post IR, PNF for R shoulder
--- NOTE | 2020-12-05 12:38 | PT.OTN ---
Current Diagnoses Weakness (12/05/20) Unspecified fracture of upper end of right humerus, subsequent encounter for fracture with routine healing (12/05/20) Physical Therapy Treatment Note PT-OP-A Visit Information Start: 09/22/20 08:17 Freq: Status: Active Protocol: Document 12/05/20 08:17 LRN (Rec: 12/05/20 09:04 LRN [id number]) Out-Patient Physical Therapy Visit Information Visit Information Visit Type Progress Note Visit Note 10/20/20: Pt cleared for AROM End of October - pt reports cleared for strengthening. No referral received Visit Start Time 08:17 Visit Stop Time 09:03 Total Visit Minutes 48 Visit Number 12 Evaluation Information Evaluation Date 09/22/20 Precautions Precautions AROM permitted, no resistance, MD appt 11/21 PT-OP-B Current Condition Start: 09/22/20 08:17 Freq: Status: Active Protocol: Document 09/22/20 09:01 OF (Rec: 09/22/20 11:54 OF [id number]) Current Condition History of Current Condition Onset Date 08/29/20 Current Complaints pain in R shoulder, swelling in R UE History of Current Condition Pt has been using a sling time signal wirer until last week when she was progressed to move out of sling while seated and perform pendulums. 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 She demonstrates normal gait pattern and dynamic balance PT-OP-C Subjective Start: 09/22/20 08:17 Freq: Status: Active Protocol: Document 12/05/20 08:17 LRN (Rec: 12/05/20 09:04 LRN [id number]) OP-PT Subjective Patient Comments Patient Comments Last visit with referring PAC clinic was at end of October. Told she could begin strengthening, was cleared for AROM at end of September and also cleared to do AB & ER. She was given an activity report for L&I purposes, no referral received of clearing for strengthening. Was told her R shoulder looked healed and she couldn't damage her shoulder unless she fell on it again. States after last therapy (12/01/20) and tripped and fell and L side. Tripped on elevated cement, so muscles are sore. Pt can lift 1 gal water. Patient Questionnaires Quick Dash- Upper Extremity Quick Dash UE Score 26 Quick Dash UE Impairment 20 to 39% Impaired (Score 20- 39) PT-OP-K Range of Motion Start: 09/22/20 08:17 Freq: Status: Active Protocol: Document 12/05/20 08:17 LRN (Rec: 12/05/20 09:04 LRN [id number]) Shoulder Goniometric Range of Motion Shoulder Left Active Shoulder ROM WFL Yes Testing Position Supine Flexion 156 Extension 60 External Rotation at 90 degrees 62 Abduction Internal Rotation 78 R shld Shoulder ROM WFL No Flexion 136 Extension 42 Abduction 88 External Rotation at 90 degrees 45 Abduction Internal Rotation Behind Back (text) R buttock Comments Unsure previous ROM. Today's AROM all measurements: supine (post modified partridge protocol) ABD AROM w/ flex compensations , decrease from 93 last tx. PT-OP-M Strength Start: 09/22/20 08:17 Freq: Status: Active Protocol: Document 12/05/20 08:17 LRN (Rec: 12/05/20 09:04 LRN [id number]) Shoulder Strength Shoulder Manual Muscle Testing Right Flexion 2+ Poor+ Extension 3 Fair Abduction (C5) 3- Fair- Adduction 3 Fair External Rotation 2+ Poor+ Internal Rotation 3+ Fair+ Left Flexion 5 Normal Extension 5 Normal Abduction (C5) 5 Normal Adduction 5 Normal External Rotation 4 Good Internal Rotation 5 Normal PT-OP-Q Treatments Start: 09/22/20 08:17 Freq: Status: Active Protocol: Document 12/05/20 08:17 LRN (Rec: 12/05/20 12:35 LRN [id number]) Therapeutic Exercises Supine Exercises IR stretch Supine Exercise Name IR stretch Side right Reps/Minutes 3' AROM measurements Supine Exercise Name FF, AB, ER, IR, ext shoulder Side bilateral Resistance AROM Equipment Used dowel Reps/Minutes 12' supine ER with wand AAROM Side right Resistance AROM Reps/Minutes x 10 reps Comments cued slow pacing control Sitting Exercises MMT R & L shoulder Sitting Exercise Name MMT flex, AB, ER, IR, Ext, AD Side bilateral Reps/Minutes 12' pulleys Sitting Exercise Name FF, abd Side right Resistance PROM Equipment Used mirror not used for self feedback decrease UT recruitment Reps/Minutes 8' Comments improved decrease UT recruitment Standing Exercises IR stretch Standing Exercise Name Behind back reaching Side right Equipment Used 2' Self-Care/Home Management Treatment Education Other Education Discussed results of recheck, discussed at length goals for strengthening phase of rehabilitation and plan of care. Activities Self-Care/Home Management Activities I/S pt in HEP: Supine R shoulder ER stretch with cane. PT-OP-T Assessment and Plan Start: 09/22/20 08:17 Freq: Status: Active Protocol: Document 12/05/20 08:17 LRN (Rec: 12/05/20 09:04 LRN [id number]) Physical Therapy Assessment Rehab Potential Rehabilitation Potential Good Evaluation Complexity Number of Personal Factors/Comorbidities 1-2 Number of Body Systems Impaired 1-2 Clinical Presentation at Evaluation Stable Impairments Impairments Activity Tolerance,Functional Activities,ROM,Soft Tissue Mobility,Strength Goals Six Impairment Decreased R shoulder strength Impairment R shoulder strength is Flex & ER - 2+/5, Ext & AD 3/5, AB 3- /5, IR 3+/5 Short Term Goal (STG) Improve R shoulder strength 1/ 2 grade STG Duration 01/04/21 Quality Improvement Coordinator (Rn) Goal (LTG) Improve R shoulder strength with pt able to remove T- shirts overhead and able to carry/hold 20# with both arms. LTG Duration 02/03/21 Five Impairment Loss of R sholder ROM Short Term Goal (STG) Improve R shoulder AROM of ER to no less than 80 deg's ER and flexion 170 deg's for pt able to reach top shelf of kitchen items. STG Duration 01/04/21 Penitentiary Goal (LTG) Pt will improve R shoulder AROM to reach behind the opposite shoulder, reach behind back to wash back and reach top shelf of kitchen ( front items). LTG Duration 02/03/21 Four Impairment R ue weakness Short Term Goal (STG) Pt will improve R shoulder strength in all planes to 2/5 to initiate ADL 11/14/20: Met 11/14 per PT previous tx carried over. STG Duration Goal MET 11/14 Quality Improvement Coordinator (Rn) Goal (LTG) Pt will improve R shoulder strength in all planes to 4/5 to return to work and achieve symmetry with L shoulder LTG Duration 02/03/21 Three Impairment quickdash Quality Improvement Coordinator (Rn) Goal (LTG) Pt will improve quickdash to < 20% to demonstrate improved function with R UE. 12/05/20: UE QuickDASH 25 (20- 39% impaired) LTG Duration 02/03/21 (12/05/20: Progressing) Two Impairment loss of R shoulder ext rot Short Term Goal (STG) pt will demo 20 degrees ext rot to initiate ADL with R UE STG Duration MET 11/14 Penitentiary Goal (LTG) Pt will demo 40 degrees of ext rot to return to I PLOF and work 12/01/20: Goal Met 42 deg ext, measured in standing. LTG Duration goal met 12/01/20 One Impairment Loss of R shoulder ROM Short Term Goal (STG) Pt will demo R shoulder flexion to 90 degrees to initiate overhead activities 11/24/20: goal met: SUPINE: AROM during FF: 118 deg, ABD 93* w/ flex compensation, 60deg ER arm at side 12/01/20: FF 132*, abd w/ flex compensation 50 *, IR behind back over buttocks with cues for proper alignment. STG Duration 2 weeks GOAL MET Penitentiary Goal (LTG) Pt will demo 180 degrees R shoulder flexion to return to normal PLOF 12/01/20: progressing 136 deg FF using wand. LTG Duration 6 weeks Assessment Summary Assessment Pt has made good progress in improving her R shoulder ROM. Pt continues to need cues and mirror self feedback for scap and humerus inf glide during pulleys for self corrections and noted decrease UT recruitment and to decrease pain. The pt reports being cleared for strengthening on her last attended physician follow up appointment, but referral not received to start strengthening. The pt will be progressed to strengthening when referral received. The pt will benefit from further skilled physical therapy to further improve her R shoulder PROM & AROM and to progress her strength to achieve prior level of function. Pt initiated TB resisted rows and shld ER on RUE with good feedback pain free while giving cues for scap stab alignment and inf glide of humerus pain free. Physical Therapy Plan Frequency and Duration Frequency of Treatment 2x/Week Plan of Care Start Date 12/05/20 Plan of Care End Date 02/03/21 Therapeutic Interventions Therapeutic Interventions Home Exercise Program,Manual Therapy,Patient/Caregiver Education,Self-Care/Home Management,Soft Tissue Mobilization,Therapeutic Exercises Modalities Cold Pack/Ice Massage,Electric Stimulation,Hot Packs Next Visit Focus/Plan Next Note Type Treatment Note Next Visit Plan Obtain referral for progression to strengthening. Discuss insurance auth for treatments beyond 01/11/21 visit and seek further authorization. Next: Review jessica for proper scapular movement. When appropriate, recheck: Tb rows & ER, supine FF dowel, scap retraction HEP. Didn't get all ther ex in past HEP review due to updated feedback goals and pt wanted start using TB and progress per physician clearance. Add sleeper stretch . POC: reassess HEP performance, sleeper stretch or post IR, PNF for R shoulder
--- NOTE | 2020-12-05 12:40 | PT.OPPOC ---
Physical, Occupational & Speech Therapy At [facility] Current Diagnoses Weakness (12/05/20) Unspecified fracture of upper end of right humerus, subsequent encounter for fracture with routine healing (12/05/20) Visit Care Team Role Provider Type CAMRON Ness Primary Care Provider Advanced Correctional Guard Specialty: Family Practice Address: [address] [place] [address], [address], [place], [address] Email: [email or web address] Miguelina Cleveland PA-C Attending Provider Non-Staff Referring Provider Specialty: Medical Address: [address] [place] [address], [place], [address] Email: Plan Of Care PT-OP-T Assessment and Plan Start: 09/22/20 08:17 Freq: Status: Active Protocol: Document 12/05/20 08:17 LRN (Rec: 12/05/20 09:04 LRN [id number]) Physical Therapy Assessment Rehab Potential Rehabilitation Potential Good Evaluation Complexity Number of Personal Factors/Comorbidities 1-2 Number of Body Systems Impaired 1-2 Clinical Presentation at Evaluation Stable Impairments Impairments Activity Tolerance,Functional Activities,ROM,Soft Tissue Mobility,Strength Goals Six Impairment Decreased R shoulder strength Impairment R shoulder strength is Flex & ER - 2+/5, Ext & AD 3/5, AB 3- /5, IR 3+/5 Short Term Goal (STG) Improve R shoulder strength 1/ 2 grade STG Duration 01/04/21 Penitentiary Goal (LTG) Improve R shoulder strength with pt able to remove T- shirts overhead and able to carry/hold 20# with both arms. LTG Duration 02/03/21 Five Impairment Loss of R sholder ROM Short Term Goal (STG) Improve R shoulder AROM of ER to no less than 80 deg's ER and flexion 170 deg's for pt able to reach top shelf of kitchen items. STG Duration 01/04/21 Penitentiary Goal (LTG) Pt will improve R shoulder AROM to reach behind the opposite shoulder, reach behind back to wash back and reach top shelf of kitchen ( front items). LTG Duration 02/03/21 Four Impairment R ue weakness Short Term Goal (STG) Pt will improve R shoulder strength in all planes to 2/5 to initiate ADL 11/14/20: Met 11/14 per PT previous tx carried over. STG Duration Goal MET 11/14 Penitentiary Goal (LTG) Pt will improve R shoulder strength in all planes to 4/5 to return to work and achieve symmetry with L shoulder LTG Duration 02/03/21 Three Impairment quickdash Penitentiary Goal (LTG) Pt will improve quickdash to < 20% to demonstrate improved function with R UE. 12/05/20: UE QuickDASH 25 (20- 39% impaired) LTG Duration 02/03/21 (12/05/20: Progressing) Two Impairment loss of R shoulder ext rot Short Term Goal (STG) pt will demo 20 degrees ext rot to initiate ADL with R UE STG Duration MET 11/14 Penitentiary Goal (LTG) Pt will demo 40 degrees of ext rot to return to I PLOF and work 12/01/20: Goal Met 42 deg ext, measured in standing. LTG Duration goal met 12/01/20 One Impairment Loss of R shoulder ROM Short Term Goal (STG) Pt will demo R shoulder flexion to 90 degrees to initiate overhead activities 11/24/20: goal met: SUPINE: AROM during FF: 118 deg, ABD 93* w/ flex compensation, 60deg ER arm at side 12/01/20: FF 132*, abd w/ flex compensation 50 *, IR behind back over buttocks with cues for proper alignment. STG Duration 2 weeks GOAL MET Steel Loader Goal (LTG) Pt will demo 180 degrees R shoulder flexion to return to normal PLOF 12/01/20: progressing 136 deg FF using wand. LTG Duration 6 weeks Assessment Summary Assessment Pt has made good progress in improving her R shoulder ROM. Pt continues to need cues and mirror self feedback for scap and humerus inf glide during pulleys for self corrections and noted decrease UT recruitment and to decrease pain. The pt reports being cleared for strengthening on her last attended physician follow up appointment, but referral not received to start strengthening. The pt will be progressed to strengthening when referral received. The pt will benefit from further skilled physical therapy to further improve her R shoulder PROM & AROM and to progress her strength to achieve prior level of function. Pt initiated TB resisted rows and shld ER on RUE with good feedback pain free while giving cues for scap stab alignment and inf glide of humerus pain free. Physical Therapy Plan Frequency and Duration Frequency of Treatment 2x/Week Plan of Care Start Date 12/05/20 Plan of Care End Date 02/03/21 Therapeutic Interventions Therapeutic Interventions Home Exercise Program,Manual Therapy,Patient/Caregiver Education,Self-Care/Home Management,Soft Tissue Mobilization,Therapeutic Exercises Modalities Cold Pack/Ice Massage,Electric Stimulation,Hot Packs Next Visit Focus/Plan Next Note Type Treatment Note Next Visit Plan Obtain referral for progression to strengthening. Discuss insurance auth for treatments beyond 01/11/21 visit and seek further authorization. Next: Review jessica for proper scapular movement. When appropriate, recheck: Tb rows & ER, supine FF dowel, scap retraction HEP. Didn't get all ther ex in past HEP review due to updated feedback goals and pt wanted start using TB and progress per physician clearance. Add sleeper stretch . POC: reassess HEP performance, sleeper stretch or post IR, PNF for R shoulder Plan of Care Dates Plan of Care Start Date 12/05/20 Plan of Care End Date 02/03/21 Electronically Signed by: Virginia Langford, PT 12/05/20 4110 Please Sign and Return: I have reviewed this Plan of Care and certify that the skilled therapy services above are required to meet the patient?s needs. Physician Signature Date Printed Name and Credentials Clinical Instructor Signature Printed Name and Credentials
--- NOTE | 2020-12-08 14:38 | PT.OTN ---
Current Diagnoses Weakness (12/08/20) Unspecified fracture of upper end of right humerus, subsequent encounter for fracture with routine healing (12/08/20) Physical Therapy Treatment Note PT-OP-A Visit Information Start: 09/22/20 08:17 Freq: Status: Active Protocol: Document 12/08/20 13:49 SP (Rec: 12/08/20 15:48 SP [id number]) Out-Patient Physical Therapy Visit Information Visit Information Visit Type Treatment Note Visit Note 10/20/20: Pt cleared for AROM End of October - pt reports cleared for strengthening. No referral received, pt and SOFTWARE QUALITY SPECIALIST called ortho office for documentation for beginning strengthening Visit Start Time 13:49 Visit Stop Time 14:38 Total Visit Minutes 49 Visit Number 13 Number of SOFTWARE QUALITY SPECIALIST Visits 1 Evaluation Information Evaluation Date 09/22/20 Precautions Precautions AROM permitted, no resistance, appt 11/21 PT-OP-B Current Condition Start: 09/22/20 08:17 Freq: Status: Active Protocol: Document 09/22/20 09:01 OF (Rec: 09/22/20 11:54 OF [id number]) Current Condition History of Current Condition Onset Date 08/29/20 Current Complaints pain in R shoulder, swelling in R UE History of Current Condition Pt has been using a sling multimedia journalist until last week when she was progressed to move out of sling while seated and perform pendulums. 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 She demonstrates normal gait pattern and dynamic balance PT-OP-C Subjective Start: 09/22/20 08:17 Freq: Status: Active Protocol: Document 12/08/20 13:49 SP (Rec: 12/08/20 15:48 SP [id number]) OP-PT Subjective Patient Comments Patient Comments Pt stated doing well with therex, arm muscle soreness. Feels progressing and getting Patient Reported Progress Improving PT-OP-K Range of Motion Start: 09/22/20 08:17 Freq: Status: Active Protocol: Document 12/08/20 13:49 SP (Rec: 12/08/20 15:48 SP [id number]) Shoulder Goniometric Range of Motion Shoulder R shld Shoulder ROM WFL No Testing Position Supine Flexion 130 Abduction 90 External Rotation at 45 degrees 45 Abduction Comments AROM PT-OP-M Strength Start: 09/22/20 08:17 Freq: Status: Active Protocol: Document 12/05/20 08:17 LRN (Rec: 12/05/20 09:04 LRN [id number]) Shoulder Strength Shoulder Manual Muscle Testing Right Flexion 2+ Poor+ Extension 3 Fair Abduction (C5) 3- Fair- Adduction 3 Fair External Rotation 2+ Poor+ Internal Rotation 3+ Fair+ Left Flexion 5 Normal Extension 5 Normal Abduction (C5) 5 Normal Adduction 5 Normal External Rotation 4 Good Internal Rotation 5 Normal PT-OP-Q Treatments Start: 09/22/20 08:17 Freq: Status: Active Protocol: Document 12/08/20 13:49 SP (Rec: 12/08/20 15:48 SP [id number]) Therapeutic Exercises Supine Exercises PNF Supine Exercise Name AAROM Side right Reps/Minutes x10 2 Supine Exercise Name Supine AROM Flexion Side right Resistance #1 leg wt Equipment Used dowel Comments post manual, improved ROM 1 Supine Exercise Name PROM R Flexion, Abduction Side right Reps/Minutes x5 pre manual Sidelying Exercises open book Sidelying Exercise Name shld and scapular HABD w/ TS rotation Side right Resistance AAROM Equipment Used reviewed and painfree range Reps/Minutes x5 Comments cued head with hand, good form and pain free range ( R shld < 90 * abd) Shld abd Sidelying Exercise Name added to HEP-discussed not performed today Side right Resistance A-AAROM Reps/Minutes 2x5 Comments painfree range Sitting Exercises pulleys Sitting Exercise Name FF 135*, ABD 100* Side right Resistance PROM Equipment Used mirror not used for self feedback decrease UT recruitment Reps/Minutes 8' Comments improved decrease UT recruitment Standing Exercises wall walk Standing Exercise Name FF (added to HEP)- add ABD next appt Side right Reps/Minutes x3 Comments good alignment, decreased UT recruitment resisted rows Standing Exercise Name didn't get to, review HEP next appt Side bilateral Resistance Tb #1 Reps/Minutes x10 Comments cued scap retract/ depress and inf glide humerus for comfort pos- good resp resisted shld ER Standing Exercise Name didn't get to, review HEP next appt Side right Resistance Tb#1 Equipment Used w/ towel roll under arm Reps/Minutes x10 Comments cued scap retract/ depress and inf glide humerus for comfort pos- good resp Other Exercises 1/2 kneel FF OH Other Exercise Name assessed FF OH Side right Resistance TB #1 Reps/Minutes x5 Comments pt challenged with no UT recruitment- so discontinued Manual Therapy Treatment Soft Tissue Mobilization 1 Body Location R subscap, teres, UT, deltoid, distal lat, bicep, serratus ant, supraspina Mobilization Type Myofascial Release,Strumming, Sustained Pressure Intensity/Depth Moderate Body Position Supine Comments manual, also modified partridge protocol prone and sidelying performed Joint Mobilizations modified partridige protocol Joint R shld complex Reps/Duration 4 min total Comments ossilations: R scap: inf, across to opp SI directioning prone, L sidelying w/ arm supported relaxed approx 80 deg. PROM in L sidelying HABD painfree range. proximal clavical mob follow exhale then release w/ quick breath. improve ROM into FF and decreased tension in R shld reported and able gain FF ROM. GH Jt gides Joint R Direction inf, post Grade II Body Position Hooklying Comments good feedback response PROM right shoulder all planes Joint PROM R shoulder all planes Comments good feedback response, improved ROM post manual. PT-OP-T Assessment and Plan Start: 09/22/20 08:17 Freq: Status: Active Protocol: Document 12/08/20 13:49 SP (Rec: 12/08/20 15:48 SP [id number]) Physical Therapy Assessment Goals Six Impairment Decreased R shoulder strength Impairment R shoulder strength is Flex & ER - 2+/5, Ext & AD 3/5, AB 3- /5, IR 3+/5 Short Term Goal (STG) Improve R shoulder strength 1/ 2 grade STG Duration 01/04/21 Air Conditioning Engineer Goal (LTG) Improve R shoulder strength with pt able to remove T- shirts overhead and able to carry/hold 20# with both arms. LTG Duration 02/03/21 Five Impairment Loss of R sholder ROM Short Term Goal (STG) Improve R shoulder AROM of ER to no less than 80 deg's ER and flexion 170 deg's for pt able to reach top shelf of kitchen items. STG Duration 01/04/21 Air Conditioning Engineer Goal (LTG) Pt will improve R shoulder AROM to reach behind the opposite shoulder, reach behind back to wash back and reach top shelf of kitchen ( front items). LTG Duration 02/03/21 Four Impairment R ue weakness Short Term Goal (STG) Pt will improve R shoulder strength in all planes to 2/5 to initiate ADL 11/14/20: Met 11/14 per PT previous tx carried over. STG Duration Goal MET 11/14 Air Conditioning Engineer Goal (LTG) Pt will improve R shoulder strength in all planes to 4/5 to return to work and achieve symmetry with L shoulder LTG Duration 02/03/21 Three Impairment quickdash Retirement Goal (LTG) Pt will improve quickdash to < 20% to demonstrate improved function with R UE. 12/05/20: UE QuickDASH 25 (20- 39% impaired) LTG Duration 02/03/21 (12/05/20: Progressing) Two Impairment loss of R shoulder ext rot Short Term Goal (STG) pt will demo 20 degrees ext rot to initiate ADL with R UE STG Duration MET 11/14 Air Conditioning Engineer Goal (LTG) Pt will demo 40 degrees of ext rot to return to I PLOF and work 12/01/20: Goal Met 42 deg ext, measured in standing. LTG Duration goal met 12/01/20 One Impairment Loss of R shoulder ROM Short Term Goal (STG) Pt will demo R shoulder flexion to 90 degrees to initiate overhead activities 11/24/20: goal met: SUPINE: AROM during FF: 118 deg, ABD 93* w/ flex compensation, 60deg ER arm at side 12/01/20: FF 132*, abd w/ flex compensation 50 *, IR behind back over buttocks with cues for proper alignment. STG Duration 2 weeks GOAL MET Retirement Goal (LTG) Pt will demo 180 degrees R shoulder flexion to return to normal PLOF 12/01/20: progressing 136 deg FF using wand. LTG Duration 6 weeks Assessment Summary Assessment Assess response and improved ROM post manua. Educated wanting to progress ROM before progress into more strengthening. Continue to look for fax of updated ortho documentation on allowance of strengthening. Pt and SOFTWARE QUALITY SPECIALIST called previous to today'stx and still not received. Pt understands good self corrections decrease UT recruitment during AAROM, PROM pulleys and wall. Physical Therapy Plan Frequency and Duration Frequency of Treatment 2x/Week Plan of Care Start Date 12/05/20 Plan of Care End Date 02/03/21 Therapeutic Interventions Therapeutic Interventions Home Exercise Program,Manual Therapy,Patient/Caregiver Education,Self-Care/Home Management,Soft Tissue Mobilization,Therapeutic Exercises Modalities Cold Pack/Ice Massage,Electric Stimulation,Hot Packs Next Visit Focus/Plan Next Note Type Treatment Note Next Visit Plan Waiting on referral documentation for progression to strengthening from ortho. Discuss insurance auth for treatments beyond 01/11/21 visit and seek further authorization. Next tx continue: Review jessica and wall walk FF/ ABD, reaching behind back and use of wand for proper scapular movement. When appropriate, recheck: Tb rows & ER, supine FF dowel, scap retraction HEP. POC: reassess HEP performance, sleeper stretch or post IR, PNF for R shoulder
--- NOTE | 2020-12-13 12:36 | PT.OTN ---
Current Diagnoses Weakness (12/13/20) Unspecified fracture of upper end of right humerus, subsequent encounter for fracture with routine healing (12/13/20) Physical Therapy Treatment Note PT-OP-A Visit Information Start: 09/22/20 08:17 Freq: Status: Active Protocol: Document 12/13/20 09:40 OF (Rec: 12/13/20 12:36 OF [id number]) Out-Patient Physical Therapy Visit Information Visit Information Visit Type Treatment Note Visit Note pt cleared for strengthening via updated order from MD Visit Start Time 08:50 Visit Stop Time 09:40 Total Visit Minutes 50 Evaluation Information Evaluation Date 09/22/20 Precautions Precautions cleared for ROM and resistance training PT-OP-B Current Condition Start: 09/22/20 08:17 Freq: Status: Active Protocol: Document 09/22/20 09:01 OF (Rec: 09/22/20 11:54 OF [id number]) Current Condition History of Current Condition Onset Date 08/29/20 Current Complaints pain in R shoulder, swelling in R UE History of Current Condition Pt has been using a sling special education teaching assistant until last week when she was progressed to move out of sling while seated and perform pendulums. 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 She demonstrates normal gait pattern and dynamic balance PT-OP-C Subjective Start: 09/22/20 08:17 Freq: Status: Active Protocol: Document 12/13/20 09:40 OF (Rec: 12/13/20 12:36 OF [id number]) OP-PT Subjective Patient Comments Patient Comments pt states she has been performing HEP as instructed, increased I with ADL Patient Reported Progress Improving OP-PT Pain Assessment Pain Assessment Grid Paper Pain Assessment Grid Completed No Location Right Shoulder Pain Location Details sharp over deltoid Intensity 2 Scale Used Numeric (0 - 10) Description Aching Frequency Frequent Pain Aggravating Factors Activity,Exercise Pain Alleviating Factors Cold,Inactivity Home Pain Medication Use Pain Medications Used No PT-OP-K Range of Motion Start: 09/22/20 08:17 Freq: Status: Active Protocol: Document 12/08/20 13:49 SP (Rec: 12/08/20 15:48 SP [id number]) Shoulder Goniometric Range of Motion Shoulder R shld Shoulder ROM WFL No Testing Position Supine Flexion 130 Abduction 90 External Rotation at 45 degrees 45 Abduction Comments AROM PT-OP-M Strength Start: 09/22/20 08:17 Freq: Status: Active Protocol: Document 12/05/20 08:17 LRN (Rec: 12/05/20 09:04 LRN [id number]) Shoulder Strength Shoulder Manual Muscle Testing Right Flexion 2+ Poor+ Extension 3 Fair Abduction (C5) 3- Fair- Adduction 3 Fair External Rotation 2+ Poor+ Internal Rotation 3+ Fair+ Left Flexion 5 Normal Extension 5 Normal Abduction (C5) 5 Normal Adduction 5 Normal External Rotation 4 Good Internal Rotation 5 Normal PT-OP-Q Treatments Start: 09/22/20 08:17 Freq: Status: Active Protocol: Document 12/13/20 09:40 OF (Rec: 12/13/20 12:36 OF [id number]) Therapeutic Exercises Supine Exercises IR stretch Supine Exercise Name IR stretch Side right Reps/Minutes [id number] PNF Supine Exercise Name AROM Side right Reps/Minutes 2x10 supine ER with wand AAROM Side right Resistance AROM Reps/Minutes x 10 reps Comments cued slow pacing control 2 Supine Exercise Name Supine AROM Flexion Side right Resistance #2 leg wt Equipment Used dowel Comments post manual, improved ROM 1 Supine Exercise Name PROM R Flexion, Abduction Side right Reps/Minutes x5 pre manual Sidelying Exercises PROM flexion, ext rot Side right Reps/Minutes 3x1min Comments therapist providing PROM in pain free range to 100 flexion , limited ext tod Sitting Exercises pulleys Side right Resistance PROM Equipment Used mirror not used for self feedback decrease UT recruitment Reps/Minutes 8' Comments improved awareness of UT relaxation Standing Exercises resisted rows Side bilateral Resistance TB 2 Reps/Minutes 3x10 Comments cued scap retract/ depress and inf glide humerus for comfort resisted shld ER Standing Exercise Name didn't get to, review HEP next appt Side right Resistance Tb#2 Equipment Used w/ towel roll under arm Reps/Minutes 3x10 Comments cued scap retract/ depress and inf glide humerus for comfort pos- good resp Manual Therapy Treatment Joint Mobilizations GH Jt gides Joint R Direction inf, post Grade II Body Position Hooklying Comments good feedback response PT-OP-T Assessment and Plan Start: 09/22/20 08:17 Freq: Status: Active Protocol: Document 12/13/20 09:40 OF (Rec: 12/13/20 12:36 OF [id number]) Physical Therapy Assessment Rehab Potential Rehabilitation Potential Good Evaluation Complexity Number of Personal Factors/Comorbidities 1-2 Number of Body Systems Impaired 1-2 Clinical Presentation at Evaluation Stable Impairments Impairments Soft Tissue Mobility Goals Six Impairment Decreased R shoulder strength Impairment R shoulder strength is Flex & ER - 2+/5, Ext & AD 3/5, AB 3- /5, IR 3+/5 Short Term Goal (STG) Improve R shoulder strength 1/ 2 grade STG Duration 01/04/21 Group Home Goal (LTG) Improve R shoulder strength with pt able to remove T- shirts overhead and able to carry/hold 20# with both arms. LTG Duration 02/03/21 Five Impairment Loss of R sholder ROM Short Term Goal (STG) Improve R shoulder AROM of ER to no less than 80 deg's ER and flexion 170 deg's for pt able to reach top shelf of kitchen items. STG Duration 01/04/21 Group Home Goal (LTG) Pt will improve R shoulder AROM to reach behind the opposite shoulder, reach behind back to wash back and reach top shelf of kitchen ( front items). LTG Duration 02/03/21 Four Impairment R ue weakness Short Term Goal (STG) Pt will improve R shoulder strength in all planes to 2/5 to initiate ADL 11/14/20: Met 11/14 per PT previous tx carried over. STG Duration Goal MET 11/14 Antique Refinisher Goal (LTG) Pt will improve R shoulder strength in all planes to 4/5 to return to work and achieve symmetry with L shoulder LTG Duration 02/03/21 Three Impairment quickdash Antique Refinisher Goal (LTG) Pt will improve quickdash to < 20% to demonstrate improved function with R UE. 12/05/20: UE QuickDASH 25 (20- 39% impaired) LTG Duration 02/03/21 (12/05/20: Progressing) Two Impairment loss of R shoulder ext rot Short Term Goal (STG) pt will demo 20 degrees ext rot to initiate ADL with R UE STG Duration MET 11/14 Antique Refinisher Goal (LTG) Pt will demo 40 degrees of ext rot to return to I PLOF and work 12/01/20: Goal Met 42 deg ext, measured in standing. LTG Duration goal met 12/01/20 One Impairment Loss of R shoulder ROM Short Term Goal (STG) Pt will demo R shoulder flexion to 90 degrees to initiate overhead activities 11/24/20: goal met: SUPINE: AROM during FF: 118 deg, ABD 93* w/ flex compensation, 60deg ER arm at side 12/01/20: FF 132*, abd w/ flex compensation 50 *, IR behind back over buttocks with cues for proper alignment. STG Duration 2 weeks GOAL MET Antique Refinisher Goal (LTG) Pt will demo 180 degrees R shoulder flexion to return to normal PLOF 12/01/20: progressing 136 deg FF using wand. LTG Duration 6 weeks Progress Towards Goals Progress Towards Goals Progressing Toward Goals Assessment Summary Assessment Pt improves HEP performance and ROM with ADL. She is eager to initiate strengthening and progress HEP Physical Therapy Plan Next Visit Focus/Plan Next Note Type Treatment Note Next Visit Plan progress strengthening, limit lifting to 10# per MD limitations
--- NOTE | 2020-12-15 09:55 | PT.OTN ---
Current Diagnoses Weakness (12/15/20) Unspecified fracture of upper end of right humerus, subsequent encounter for fracture with routine healing (12/15/20) Physical Therapy Treatment Note PT-OP-A Visit Information Start: 09/22/20 08:17 Freq: Status: Active Protocol: Document 12/15/20 09:49 OF (Rec: 12/15/20 09:55 OF [id number]) Out-Patient Physical Therapy Visit Information Visit Information Visit Type Treatment Note Visit Start Time 09:00 Visit Stop Time 09:46 Total Visit Minutes 46 Visit Number 14 Evaluation Information Evaluation Date 09/22/20 Precautions Precautions no lifting >10lb. PT-OP-B Current Condition Start: 09/22/20 08:17 Freq: Status: Active Protocol: Document 09/22/20 09:01 OF (Rec: 09/22/20 11:54 OF [id number]) Current Condition History of Current Condition Onset Date 08/29/20 Current Complaints pain in R shoulder, swelling in R UE History of Current Condition Pt has been using a sling multimedia services manager until last week when she was progressed to move out of sling while seated and perform pendulums. 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 She demonstrates normal gait pattern and dynamic balance PT-OP-C Subjective Start: 09/22/20 08:17 Freq: Status: Active Protocol: Document 12/15/20 09:49 OF (Rec: 12/15/20 09:55 OF [id number]) OP-PT Subjective Patient Comments Patient Comments pt reports improved I with overhead reaching at home Patient Reported Progress Improving OP-PT Pain Assessment Location Right Shoulder Pain Location Details 2 Scale Used Numeric (0 - 10) Description Aching,Sharp Frequency Frequent Pain Aggravating Factors ADL's,Exercise Pain Alleviating Factors Inactivity Home Pain Medication Use Pain Medications Used No PT-OP-K Range of Motion Start: 09/22/20 08:17 Freq: Status: Active Protocol: Document 12/08/20 13:49 SP (Rec: 12/08/20 15:48 SP [id number]) Shoulder Goniometric Range of Motion Shoulder R shld Shoulder ROM WFL No Testing Position Supine Flexion 130 Abduction 90 External Rotation at 45 degrees 45 Abduction Comments AROM PT-OP-M Strength Start: 09/22/20 08:17 Freq: Status: Active Protocol: Document 12/05/20 08:17 LRN (Rec: 12/05/20 09:04 LRN [id number]) Shoulder Strength Shoulder Manual Muscle Testing Right Flexion 2+ Poor+ Extension 3 Fair Abduction (C5) 3- Fair- Adduction 3 Fair External Rotation 2+ Poor+ Internal Rotation 3+ Fair+ Left Flexion 5 Normal Extension 5 Normal Abduction (C5) 5 Normal Adduction 5 Normal External Rotation 4 Good Internal Rotation 5 Normal PT-OP-Q Treatments Start: 09/22/20 08:17 Freq: Status: Active Protocol: Document 12/15/20 09:49 OF (Rec: 12/15/20 09:55 OF [id number]) Therapeutic Exercises Sidelying Exercises open book Sidelying Exercise Name shld and scapular HABD w/ TS rotation Side right Resistance AAROM Equipment Used reviewed and painfree range Reps/Minutes x5 Comments cued head with hand, good form and pain free range Sitting Exercises pulleys Side right Resistance PROM Reps/Minutes 8' Comments improved awareness of UT relaxation Standing Exercises lat pulls Standing Exercise Name 1/2 kneel Side bilateral Equipment Used 3# Reps/Minutes 3x10 bicep curls Side bilateral Resistance 3# Reps/Minutes 3x10 wall circles Side right Equipment Used towel Reps/Minutes 30sec fo rint rot, ext rot, progressing to 1ft diameter resisted rows Side bilateral Resistance TB 2 Reps/Minutes 3x10 Comments cued scap retract/ depress and inf glide humerus for comfort resisted shld ER Standing Exercise Name didn't get to, review HEP next appt Side right Resistance Tb#2 Equipment Used w/ towel roll under arm Reps/Minutes 3x10 Comments cued scap retract/ depress and inf glide humerus for comfort pos- good resp pec minor door way stretch] Reps/Minutes 1-2 reps hold 30 sec each 1 Standing Exercise Name pendulum Side right Reps/Minutes [id number] bidirectional Comments for HEP Manual Therapy Treatment Joint Mobilizations scapula Joint Scap/thoracic Direction sup/inf Grade III Body Position Sidelying Comments combine with UE scaption GH Jt gides Joint R Direction inf, post Grade II Body Position Hooklying Comments good feedback response PROM right shoulder all planes Joint PROM R shoulder all planes Comments good feedback response, improved ROM post manual. Self-Care/Home Management Treatment Education Patient Education Home Exercise Program PT-OP-T Assessment and Plan Start: 09/22/20 08:17 Freq: Status: Active Protocol: Document 12/15/20 09:49 OF (Rec: 12/15/20 09:55 OF [id number]) Physical Therapy Assessment Rehab Potential Rehabilitation Potential Excellent Evaluation Complexity Number of Personal Factors/Comorbidities 1-2 Number of Body Systems Impaired 1-2 Clinical Presentation at Evaluation Stable Impairments Impairments Soft Tissue Mobility,Strength Goals Six Impairment Decreased R shoulder strength Impairment R shoulder strength is Flex & ER - 2+/5, Ext & AD 3/5, AB 3- /5, IR 3+/5 Short Term Goal (STG) Improve R shoulder strength 1/ 2 grade STG Duration 01/04/21 [employer] Goal (LTG) Improve R shoulder strength with pt able to remove T- shirts overhead and able to carry/hold 20# with both arms. LTG Duration 02/03/21 Five Impairment Loss of R sholder ROM Short Term Goal (STG) Improve R shoulder AROM of ER to no less than 80 deg's ER and flexion 170 deg's for pt able to reach top shelf of kitchen items. STG Duration 01/04/21 [employer] Goal (LTG) Pt will improve R shoulder AROM to reach behind the opposite shoulder, reach behind back to wash back and reach top shelf of kitchen ( front items). LTG Duration 02/03/21 Four Impairment R ue weakness Short Term Goal (STG) Pt will improve R shoulder strength in all planes to 2/5 to initiate ADL 11/14/20: Met 11/14 per PT previous tx carried over. STG Duration Goal MET 11/14 Snf Goal (LTG) Pt will improve R shoulder strength in all planes to 4/5 to return to work and achieve symmetry with L shoulder LTG Duration 02/03/21 Three Impairment quickdash Snf Goal (LTG) Pt will improve quickdash to < 20% to demonstrate improved function with R UE. 12/05/20: UE QuickDASH 25 (20- 39% impaired) LTG Duration 02/03/21 (12/05/20: Progressing) Two Impairment loss of R shoulder ext rot Short Term Goal (STG) pt will demo 20 degrees ext rot to initiate ADL with R UE STG Duration MET 11/14 Snf Goal (LTG) Pt will demo 40 degrees of ext rot to return to I PLOF and work 12/01/20: Goal Met 42 deg ext, measured in standing. LTG Duration goal met 12/01/20 One Impairment Loss of R shoulder ROM Short Term Goal (STG) Pt will demo R shoulder flexion to 90 degrees to initiate overhead activities 11/24/20: goal met: SUPINE: AROM during FF: 118 deg, ABD 93* w/ flex compensation, 60deg ER arm at side 12/01/20: FF 132*, abd w/ flex compensation 50 *, IR behind back over buttocks with cues for proper alignment. STG Duration 2 weeks GOAL MET [employer] Goal (LTG) Pt will demo 180 degrees R shoulder flexion to return to normal PLOF 12/01/20: progressing 136 deg FF using wand. LTG Duration 6 weeks Progress Towards Goals Progress Towards Goals Progressing Toward Goals Assessment Summary Assessment Roma has improved mobility with overhead reaching, continues to have difficulty with trap compensations. HEP progressed for strengthening Physical Therapy Plan Frequency and Duration Duration of Treatment 6weeks Plan of Care Start Date 12/05/20 Plan of Care End Date 02/03/21 Next Visit Focus/Plan Next Note Type Treatment Note Next Visit Plan re assess HEP for lat pulls, wall circles, bicep curls, doorway stretch
--- NOTE | 2020-12-18 12:54 | PT.OTN ---
Current Diagnoses Weakness (12/18/20) Unspecified fracture of upper end of right humerus, subsequent encounter for fracture with routine healing (12/18/20) Physical Therapy Treatment Note PT-OP-A Visit Information Start: 09/22/20 08:17 Freq: Status: Active Protocol: Document 12/18/20 12:48 OF (Rec: 12/18/20 12:54 OF [id number]) Out-Patient Physical Therapy Visit Information Visit Information Visit Type Treatment Note Visit Start Time 09:00 Visit Stop Time 09:40 Total Visit Minutes 48 Visit Number 14 Evaluation Information Evaluation Date 09/22/20 Precautions Precautions no lifting >10lb. PT-OP-B Current Condition Start: 09/22/20 08:17 Freq: Status: Active Protocol: Document 09/22/20 09:01 OF (Rec: 09/22/20 11:54 OF [email or web address]) Current Condition History of Current Condition Onset Date 08/29/20 Current Complaints pain in R shoulder, swelling in R UE History of Current Condition Pt has been using a sling multimedia technician until last week when she was progressed to move out of sling while seated and perform pendulums. 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 She demonstrates normal gait pattern and dynamic balance PT-OP-C Subjective Start: 09/22/20 08:17 Freq: Status: Active Protocol: Document 12/18/20 12:48 OF (Rec: 12/18/20 12:54 OF [id number]) OP-PT Subjective Patient Comments Patient Comments pt reports HEP performance, unsure of allstrengthening exercises Patient Reported Progress Improving OP-PT Pain Assessment Pain Assessment Grid Paper Pain Assessment Grid Completed No: pt denies pain today PT-OP-K Range of Motion Start: 09/22/20 08:17 Freq: Status: Active Protocol: Document 12/08/20 13:49 SP (Rec: 12/08/20 15:48 SP [id number]) Shoulder Goniometric Range of Motion Shoulder R shld Shoulder ROM WFL No Testing Position Supine Flexion 130 Abduction 90 External Rotation at 45 degrees 45 Abduction Comments AROM PT-OP-M Strength Start: 09/22/20 08:17 Freq: Status: Active Protocol: Document 12/05/20 08:17 LRN (Rec: 12/05/20 09:04 LRN [id number]) Shoulder Strength Shoulder Manual Muscle Testing Right Flexion 2+ Poor+ Extension 3 Fair Abduction (C5) 3- Fair- Adduction 3 Fair External Rotation 2+ Poor+ Internal Rotation 3+ Fair+ Left Flexion 5 Normal Extension 5 Normal Abduction (C5) 5 Normal Adduction 5 Normal External Rotation 4 Good Internal Rotation 5 Normal PT-OP-Q Treatments Start: 09/22/20 08:17 Freq: Status: Active Protocol: Document 12/18/20 12:48 OF (Rec: 12/18/20 12:54 OF [id number]) Therapeutic Exercises Supine Exercises IR stretch Supine Exercise Name IR stretch Side right Reps/Minutes [id number] PNF Supine Exercise Name AROM Side right Reps/Minutes 2x10 Comments ext/flexion with limited cross body reach Sidelying Exercises PROM flexion, ext rot Side right Reps/Minutes 3x1min Comments therapist providing PROM in pain free range to 110 flexion Sitting Exercises pulleys Side bilateral Resistance PROM Reps/Minutes 8' Comments improved awareness of UT relaxation Standing Exercises pushup+ Side bilateral Reps/Minutes 2x10 Comments demo for porper hand placement lat pulls Side bilateral Equipment Used 3# Reps/Minutes 3x10 Comments cues for shldr extension bicep curls Side bilateral Resistance 3# Reps/Minutes 3x10 Comments 6# final set wall circles Side right Equipment Used towel Reps/Minutes 30sec for int rot, ext rot, progressing to 1ft diameter Comments demo for elbow ext to work stabilizers wall walk Standing Exercise Name FF (added to HEP)- add ABD next appt Side right Reps/Minutes x3 Comments good alignment, decreased UT recruitment IR stretch Standing Exercise Name Behind back reaching Side right Equipment Used 2' resisted rows Side bilateral Resistance TB 2 Reps/Minutes 3x10 Comments cued scap retract/ depress and inf glide humerus for comfort resisted shld ER Standing Exercise Name didn't get to, review HEP next appt Side right Resistance Tb#2 Equipment Used w/ towel roll under arm Reps/Minutes 3x10 Comments cued scap retract/ depress and inf glide humerus for comfort pos- good resp pec minor door way stretch] Reps/Minutes 1-2 reps hold 30 sec each Manual Therapy Treatment Manual Techniques sidelying scapular mobilization Body Position Sidelying Reps/Duration 5min Comments able to get a gentle pec minor stretch in sidelying Self-Care/Home Management Treatment Education Patient Education Home Exercise Program PT-OP-T Assessment and Plan Start: 09/22/20 08:17 Freq: Status: Active Protocol: Document 12/18/20 12:48 OF (Rec: 12/18/20 12:54 OF [id number]) Physical Therapy Assessment Rehab Potential Rehabilitation Potential Excellent Evaluation Complexity Number of Personal Factors/Comorbidities 1-2 Number of Body Systems Impaired 1-2 Clinical Presentation at Evaluation Stable Impairments Impairments ROM,Strength Goals Six Impairment Decreased R shoulder strength Impairment R shoulder strength is Flex & ER - 2+/5, Ext & AD 3/5, AB 3- /5, IR 3+/5 Short Term Goal (STG) Improve R shoulder strength 1/ 2 grade STG Duration 01/04/21 [employer] Goal (LTG) Improve R shoulder strength with pt able to remove T- shirts overhead and able to carry/hold 20# with both arms. LTG Duration 02/03/21 Five Impairment Loss of R sholder ROM Short Term Goal (STG) Improve R shoulder AROM of ER to no less than 80 deg's ER and flexion 170 deg's for pt able to reach top shelf of kitchen items. STG Duration 01/04/21 Residential Goal (LTG) Pt will improve R shoulder AROM to reach behind the opposite shoulder, reach behind back to wash back and reach top shelf of kitchen ( front items). LTG Duration 02/03/21 Four Impairment R ue weakness Short Term Goal (STG) Pt will improve R shoulder strength in all planes to 2/5 to initiate ADL 11/14/20: Met 11/14 per PT previous tx carried over. STG Duration Goal MET 11/14 Residential Goal (LTG) Pt will improve R shoulder strength in all planes to 4/5 to return to work and achieve symmetry with L shoulder LTG Duration 02/03/21 Three Impairment quickdash Residential Goal (LTG) Pt will improve quickdash to < 20% to demonstrate improved function with R UE. 12/05/20: UE QuickDASH 25 (20- 39% impaired) LTG Duration 02/03/21 (12/05/20: Progressing) Two Impairment loss of R shoulder ext rot Short Term Goal (STG) pt will demo 20 degrees ext rot to initiate ADL with R UE STG Duration MET 11/14 [employer] Goal (LTG) Pt will demo 40 degrees of ext rot to return to I PLOF and work 12/01/20: Goal Met 42 deg ext, measured in standing. LTG Duration goal met 12/01/20 One Impairment Loss of R shoulder ROM Short Term Goal (STG) Pt will demo R shoulder flexion to 90 degrees to initiate overhead activities 11/24/20: goal met: SUPINE: AROM during FF: 118 deg, ABD 93* w/ flex compensation, 60deg ER arm at side 12/01/20: FF 132*, abd w/ flex compensation 50 *, IR behind back over buttocks with cues for proper alignment. STG Duration 2 weeks GOAL MET [employer] Goal (LTG) Pt will demo 180 degrees R shoulder flexion to return to normal PLOF 12/01/20: progressing 136 deg FF using wand. LTG Duration 6 weeks Progress Towards Goals Progress Towards Goals Progressing Toward Goals Assessment Summary Assessment Roma has improved her overhead AROM, she is limited by UT tightness, deltoid pain. She required demo for strengthening HEP. Improving R sided strength Physical Therapy Plan Frequency and Duration Duration of Treatment 6weeks Plan of Care Start Date 12/05/20 Plan of Care End Date 02/03/21 Therapeutic Interventions Therapeutic Interventions Home Exercise Program,Manual Therapy,Patient/Caregiver Education,Self-Care/Home Management,Soft Tissue Mobilization,Therapeutic Exercises Next Visit Focus/Plan Next Note Type Treatment Note Next Visit Plan attempt deltoid strengthening due to pt report of occasional pain with HEP
--- NOTE | 2020-12-20 09:42 | PT.OTN ---
Current Diagnoses Weakness (12/20/20) Unspecified fracture of upper end of right humerus, subsequent encounter for fracture with routine healing (12/20/20) Physical Therapy Treatment Note PT-OP-A Visit Information Start: 09/22/20 08:17 Freq: Status: Active Protocol: Document 12/20/20 09:37 OF (Rec: 12/20/20 09:42 OF [id number]) Out-Patient Physical Therapy Visit Information Visit Information Visit Type Treatment Note Visit Start Time 08:54 Visit Stop Time 09:37 Total Visit Minutes 43 Visit Number 15 Evaluation Information Evaluation Date 09/22/20 Precautions Precautions no lifting >10lb. 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 She demonstrates normal gait pattern and dynamic balance PT-OP-C Subjective Start: 09/22/20 08:17 Freq: Status: Active Protocol: Document 12/20/20 09:37 OF (Rec: 12/20/20 09:42 OF [id number]) OP-PT Subjective Patient Comments Patient Comments pt states she has been performing HEP as instructed, ready to progress rows resistance Patient Reported Progress Improving OP-PT Pain Assessment Pain Assessment Grid Paper Pain Assessment Grid Completed No Location Right Shoulder Pain Location Details R shldr Intensity 2 Scale Used Numeric (0 - 10) Description Aching Frequency Intermittent Pain Aggravating Factors ADL's,Activity,Exercise Pain Alleviating Factors Inactivity Home Pain Medication Use Pain Medications Used No PT-OP-K Range of Motion Start: 09/22/20 08:17 Freq: Status: Active Protocol: Document 12/08/20 13:49 SP (Rec: 12/08/20 15:48 SP [id number]) Shoulder Goniometric Range of Motion Shoulder R shld Shoulder ROM WFL No Testing Position Supine Flexion 130 Abduction 90 External Rotation at 45 degrees 45 Abduction Comments AROM PT-OP-M Strength Start: 09/22/20 08:17 Freq: Status: Active Protocol: Document 12/05/20 08:17 LRN (Rec: 12/05/20 09:04 LRN [id number]) Shoulder Strength Shoulder Manual Muscle Testing Right Flexion 2+ Poor+ Extension 3 Fair Abduction (C5) 3- Fair- Adduction 3 Fair External Rotation 2+ Poor+ Internal Rotation 3+ Fair+ Left Flexion 5 Normal Extension 5 Normal Abduction (C5) 5 Normal Adduction 5 Normal External Rotation 4 Good Internal Rotation 5 Normal PT-OP-Q Treatments Start: 09/22/20 08:17 Freq: Status: Active Protocol: Document 12/20/20 09:37 OF (Rec: 12/20/20 09:42 OF [id number]) Therapeutic Exercises Supine Exercises PNF Supine Exercise Name AROM Side right Reps/Minutes 2x10 Comments ext/flexion with improved cross body reaching, cues for spinal ext Sidelying Exercises Shld abd Side bilateral Resistance AROM Reps/Minutes 2x5 Comments painfree range Sitting Exercises pulleys Side bilateral Resistance PROM Reps/Minutes 5min Comments improved awareness of UT relaxation, increased R shldr flexion shldr retraction Sitting Exercise Name reviewed HEP Side bilateral Reps/Minutes 3x5 Comments cues to keep humerus neutral inf glide, retract shoulder blades Standing Exercises pushup+ Side bilateral Reps/Minutes 2x10 Comments demo for porper hand placement lat pulls Side bilateral Equipment Used 3# Reps/Minutes 3x10 Comments cues for shldr extension wall circles Side right Equipment Used towel Reps/Minutes 3 x30sec for int rot, ext rot Comments increased ROM today IR stretch Standing Exercise Name Behind back reaching Side right Equipment Used 2' resisted rows Side bilateral Resistance TB 3 Reps/Minutes 3x10 Comments cued scap retract/ eccentric control with increased resistance resisted shld ER Standing Exercise Name didn't get to, review HEP next appt Side right Resistance Tb#2 Equipment Used w/ towel roll under arm Reps/Minutes 3x10 Comments cued scap retract/ depress and inf glide humerus for comfort pos- good resp pec minor door way stretch] Side bilateral Reps/Minutes 1-2 reps hold 30 sec each Self-Care/Home Management Treatment Education Patient Education Body Mechanics,Home Exercise Program PT-OP-T Assessment and Plan Start: 09/22/20 08:17 Freq: Status: Active Protocol: Document 12/20/20 09:37 OF (Rec: 12/20/20 09:42 OF [id number]) Physical Therapy Assessment Rehab Potential Rehabilitation Potential Excellent Evaluation Complexity Number of Personal Factors/Comorbidities 1-2 Number of Body Systems Impaired 1-2 Clinical Presentation at Evaluation Stable Impairments Impairments ROM,Strength Goals Six Impairment Decreased R shoulder strength Impairment R shoulder strength is Flex & ER - 2+/5, Ext & AD 3/5, AB 3- /5, IR 3+/5 Short Term Goal (STG) Improve R shoulder strength 1/ 2 grade STG Duration 01/04/21 Safety Relief Valve Technician Goal (LTG) Improve R shoulder strength with pt able to remove T- shirts overhead and able to carry/hold 20# with both arms. LTG Duration 02/03/21 Five Impairment Loss of R sholder ROM Short Term Goal (STG) Improve R shoulder AROM of ER to no less than 80 deg's ER and flexion 170 deg's for pt able to reach top shelf of kitchen items. STG Duration 01/04/21 Safety Relief Valve Technician Goal (LTG) Pt will improve R shoulder AROM to reach behind the opposite shoulder, reach behind back to wash back and reach top shelf of kitchen ( front items). LTG Duration 02/03/21 Four Impairment R ue weakness Short Term Goal (STG) Pt will improve R shoulder strength in all planes to 2/5 to initiate ADL 11/14/20: Met 11/14 per PT previous tx carried over. STG Duration Goal MET 11/14 Care Home Goal (LTG) Pt will improve R shoulder strength in all planes to 4/5 to return to work and achieve symmetry with L shoulder LTG Duration 02/03/21 Three Impairment quickdash Care Home Goal (LTG) Pt will improve quickdash to < 20% to demonstrate improved function with R UE. 12/05/20: UE QuickDASH 25 (20- 39% impaired) LTG Duration 02/03/21 (12/05/20: Progressing) Two Impairment loss of R shoulder ext rot Short Term Goal (STG) pt will demo 20 degrees ext rot to initiate ADL with R UE STG Duration MET 11/14 Safety Relief Valve Technician Goal (LTG) Pt will demo 40 degrees of ext rot to return to I PLOF and work 12/01/20: Goal Met 42 deg ext, measured in standing. LTG Duration goal met 12/01/20 One Impairment Loss of R shoulder ROM Short Term Goal (STG) Pt will demo R shoulder flexion to 90 degrees to initiate overhead activities 11/24/20: goal met: SUPINE: AROM during FF: 118 deg, ABD 93* w/ flex compensation, 60deg ER arm at side 12/01/20: FF 132*, abd w/ flex compensation 50 *, IR behind back over buttocks with cues for proper alignment. STG Duration 2 weeks GOAL MET Safety Relief Valve Technician Goal (LTG) Pt will demo 180 degrees R shoulder flexion to return to normal PLOF 12/01/20: progressing 136 deg FF using wand. LTG Duration 6 weeks Progress Towards Goals Progress Towards Goals Progressing Toward Goals Assessment Summary Assessment Roma has progressed strengthening with increased resistance for HEP. She reports improved overhead reaching at home. Physical Therapy Plan Frequency and Duration Frequency of Treatment 2x/Week Duration of Treatment 6weeks Plan of Care Start Date 12/05/20 Plan of Care End Date 02/03/21 Therapeutic Interventions Therapeutic Interventions Home Exercise Program,Manual Therapy,Patient/Caregiver Education,Self-Care/Home Management,Soft Tissue Mobilization,Therapeutic Exercises Next Visit Focus/Plan Next Note Type Treatment Note Next Visit Plan progress weights for HEP, encourage shoulder flex/abd with spinal ext
--- NOTE | 2020-12-27 09:35 | PT.OTN ---
Current Diagnoses Weakness (12/27/20) Unspecified fracture of upper end of right humerus, subsequent encounter for fracture with routine healing (12/27/20) Physical Therapy Treatment Note PT-OP-A Visit Information Start: 09/22/20 08:17 Freq: Status: Active Protocol: Document 12/27/20 09:30 OF (Rec: 12/27/20 09:35 OF [id number]) Out-Patient Physical Therapy Visit Information Visit Information Visit Type Treatment Note Visit Start Time 08:45 Visit Stop Time 09:30 Total Visit Minutes 45 Visit Number 15 Evaluation Information Evaluation Date 09/22/20 Precautions Precautions no lifting >10lb. 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 She demonstrates normal gait pattern and dynamic balance PT-OP-C Subjective Start: 09/22/20 08:17 Freq: Status: Active Protocol: Document 12/27/20 09:30 OF (Rec: 12/27/20 09:35 OF [id number]) OP-PT Subjective Patient Comments Patient Comments Pt reports HEP as instructed, pain with increased resistance Patient Reported Progress Improving OP-PT Pain Assessment Pain Assessment Grid Paper Pain Assessment Grid Completed pt denies pain during tx PT-OP-K Range of Motion Start: 09/22/20 08:17 Freq: Status: Active Protocol: Document 12/08/20 13:49 SP (Rec: 12/08/20 15:48 SP [id number]) Shoulder Goniometric Range of Motion Shoulder R shld Shoulder ROM WFL No Testing Position Supine Flexion 130 Abduction 90 External Rotation at 45 degrees 45 Abduction Comments AROM PT-OP-M Strength Start: 09/22/20 08:17 Freq: Status: Active Protocol: Document 12/05/20 08:17 LRN (Rec: 12/05/20 09:04 LRN [id number]) Shoulder Strength Shoulder Manual Muscle Testing Right Flexion 2+ Poor+ Extension 3 Fair Abduction (C5) 3- Fair- Adduction 3 Fair External Rotation 2+ Poor+ Internal Rotation 3+ Fair+ Left Flexion 5 Normal Extension 5 Normal Abduction (C5) 5 Normal Adduction 5 Normal External Rotation 4 Good Internal Rotation 5 Normal PT-OP-Q Treatments Start: 09/22/20 08:17 Freq: Status: Active Protocol: Document 12/27/20 09:30 OF (Rec: 12/27/20 09:35 OF [id number]) Therapeutic Exercises Supine Exercises PNF Supine Exercise Name AROM/AAROM Side right Reps/Minutes 2x10 Comments ext/flexion with improved cross body reaching, cues for spinal ext Sidelying Exercises Shld abd Side bilateral Resistance AROM Reps/Minutes 2x10 Comments painfree range PROM flexion, ext rot Side right Reps/Minutes 3x1min Comments therapist providing PROM in pain free range to 115 flexion Sitting Exercises pulleys Side bilateral Resistance PROM Reps/Minutes 6min Comments increased R shldr flexion shldr retraction Sitting Exercise Name reviewed HEP Side bilateral Reps/Minutes 3x5 Comments cues to keep humerus neutral inf glide, retract shoulder blades Standing Exercises pushup+ Side bilateral Reps/Minutes 2x10 Comments demo for porper hand placement lat pulls Side bilateral Equipment Used 3# Reps/Minutes 3x10 Comments cues for shldr extension bicep curls Side bilateral Resistance 3# Reps/Minutes 3x10 Comments 6# final set wall circles Side right Equipment Used towel Reps/Minutes 3 x30sec for int rot, ext rot Comments increased ROM today wall walk Standing Exercise Name FF (added to HEP)- add ABD next appt Side right Reps/Minutes x3 Comments good alignment, decreased UT recruitment IR stretch Standing Exercise Name Behind back reaching Side right Equipment Used 2' resisted rows Side bilateral Resistance TB 3 Reps/Minutes 3x10 Comments good carryover resisted shld ER Standing Exercise Name HEP with TB2 Side right Resistance Tb#2 Reps/Minutes 3x10 Comments cued scap retract/ depress and inf glide humerus for comfort pec minor door way stretch] Side bilateral Reps/Minutes 1-2 reps hold 30 sec each Manual Therapy Treatment Joint Mobilizations scapula Joint Scap/thoracic Direction sup/inf Grade III Body Position Sidelying Comments combine with UE scaption Self-Care/Home Management Treatment Education Patient Education Home Exercise Program PT-OP-T Assessment and Plan Start: 09/22/20 08:17 Freq: Status: Active Protocol: Document 12/27/20 09:30 OF (Rec: 12/27/20 09:35 OF [id number]) Physical Therapy Assessment Rehab Potential Rehabilitation Potential Excellent Evaluation Complexity Number of Personal Factors/Comorbidities 1-2 Number of Body Systems Impaired 1-2 Clinical Presentation at Evaluation Stable Impairments Impairments ROM,Strength Goals Six Impairment Decreased R shoulder strength Impairment R shoulder strength is Flex & ER - 2+/5, Ext & AD 3/5, AB 3- /5, IR 3+/5 Short Term Goal (STG) Improve R shoulder strength 1/ 2 grade STG Duration 01/04/21 Resident Care Assistant Goal (LTG) Improve R shoulder strength with pt able to remove T- shirts overhead and able to carry/hold 20# with both arms. LTG Duration 02/03/21 Five Impairment Loss of R sholder ROM Short Term Goal (STG) Improve R shoulder AROM of ER to no less than 80 deg's ER and flexion 170 deg's for pt able to reach top shelf of kitchen items. STG Duration 01/04/21 Resident Care Assistant Goal (LTG) Pt will improve R shoulder AROM to reach behind the opposite shoulder, reach behind back to wash back and reach top shelf of kitchen ( front items). LTG Duration 02/03/21 Four Impairment R ue weakness Short Term Goal (STG) Pt will improve R shoulder strength in all planes to 2/5 to initiate ADL 11/14/20: Met 11/14 per PT previous tx carried over. STG Duration Goal MET 11/14 Fdc Goal (LTG) Pt will improve R shoulder strength in all planes to 4/5 to return to work and achieve symmetry with L shoulder LTG Duration 02/03/21 Three Impairment quickdash Resident Care Assistant Goal (LTG) Pt will improve quickdash to < 20% to demonstrate improved function with R UE. 12/05/20: UE QuickDASH 25 (20- 39% impaired) LTG Duration 02/03/21 (12/05/20: Progressing) Two Impairment loss of R shoulder ext rot Short Term Goal (STG) pt will demo 20 degrees ext rot to initiate ADL with R UE STG Duration MET 11/14 Resident Care Assistant Goal (LTG) Pt will demo 40 degrees of ext rot to return to I PLOF and work 12/01/20: Goal Met 42 deg ext, measured in standing. LTG Duration goal met 12/01/20 One Impairment Loss of R shoulder ROM Short Term Goal (STG) Pt will demo R shoulder flexion to 90 degrees to initiate overhead activities 11/24/20: goal met: SUPINE: AROM during FF: 118 deg, ABD 93* w/ flex compensation, 60deg ER arm at side 12/01/20: FF 132*, abd w/ flex compensation 50 *, IR behind back over buttocks with cues for proper alignment. STG Duration 2 weeks GOAL MET Fdc Goal (LTG) Pt will demo 180 degrees R shoulder flexion to return to normal PLOF 12/01/20: progressing 136 deg FF using wand. LTG Duration 6 weeks Progress Towards Goals Progress Towards Goals Progressing Toward Goals Assessment Summary Assessment Roma is improving overhead mobility, she has good awareness of HEP and is progressing towards returning to work Physical Therapy Plan Frequency and Duration Frequency of Treatment 2x/Week Duration of Treatment 6weeks Plan of Care Start Date 12/05/20 Plan of Care End Date 02/03/21 Therapeutic Interventions Therapeutic Interventions Home Exercise Program,Manual Therapy,Patient/Caregiver Education,Self-Care/Home Management,Soft Tissue Mobilization,Therapeutic Exercises Next Visit Focus/Plan Next Note Type Treatment Note Next Visit Plan increase row resistance, scapular mobility, overhead stretching VENTURA
--- NOTE | 2020-12-29 09:42 | PT.OTN ---
Current Diagnoses Weakness (12/29/20) Unspecified fracture of upper end of right humerus, subsequent encounter for fracture with routine healing (12/29/20) Physical Therapy Treatment Note PT-OP-A Visit Information Start: 09/22/20 08:17 Freq: Status: Active Protocol: Document 12/29/20 09:35 OF (Rec: 12/29/20 09:42 OF [email or web address]) Out-Patient Physical Therapy Visit Information Visit Information Visit Type Treatment Note Visit Start Time 08:45 Visit Stop Time 09:35 Total Visit Minutes 50 Visit Number 16 Evaluation Information Evaluation Date 09/22/20 Precautions Precautions no lifting >10lb. 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 She demonstrates normal gait pattern and dynamic balance PT-OP-C Subjective Start: 09/22/20 08:17 Freq: Status: Active Protocol: Document 12/29/20 09:35 OF (Rec: 12/29/20 09:42 OF [email or web address]) OP-PT Subjective Patient Comments Patient Comments pt reports HEP as instructed, improved ability to drive long distances OP-PT Pain Assessment Pain Assessment Grid Paper Pain Assessment Grid Completed No Location Right Shoulder Pain Location Details R shldr Intensity 2 Scale Used Numeric (0 - 10) Description Aching Frequency Intermittent Pain Duration short Pain Aggravating Factors ADL's,Activity,Exercise Pain Alleviating Factors Inactivity PT-OP-K Range of Motion Start: 09/22/20 08:17 Freq: Status: Active Protocol: Document 12/08/20 13:49 SP (Rec: 12/08/20 15:48 SP [id number]) Shoulder Goniometric Range of Motion Shoulder R shld Shoulder ROM WFL No Testing Position Supine Flexion 130 Abduction 90 External Rotation at 45 degrees 45 Abduction Comments AROM PT-OP-M Strength Start: 09/22/20 08:17 Freq: Status: Active Protocol: Document 12/05/20 08:17 LRN (Rec: 12/05/20 09:04 LRN [id number]) Shoulder Strength Shoulder Manual Muscle Testing Right Flexion 2+ Poor+ Extension 3 Fair Abduction (C5) 3- Fair- Adduction 3 Fair External Rotation 2+ Poor+ Internal Rotation 3+ Fair+ Left Flexion 5 Normal Extension 5 Normal Abduction (C5) 5 Normal Adduction 5 Normal External Rotation 4 Good Internal Rotation 5 Normal PT-OP-Q Treatments Start: 09/22/20 08:17 Freq: Status: Active Protocol: Document 12/29/20 09:35 OF (Rec: 12/29/20 09:42 OF [email or web address]) Cardio Equipment Upper Body Ergometer (UBE) Duration (Minutes) 5 Other cues for relaxed traps Therapeutic Exercises Sidelying Exercises Shld abd Side bilateral Resistance AAROM Reps/Minutes 2x10 Comments painfree range PROM flexion, ext rot Side right Reps/Minutes 3x1min Comments therapist providing PROM in pain free range to 115 flexion Sitting Exercises pulleys Side bilateral Resistance PROM Reps/Minutes 6min Comments increased R shldr flexion shldr retraction Sitting Exercise Name reviewed HEP Side bilateral Reps/Minutes 3x5 Comments cues to keep humerus neutral inf glide, retract shoulder blades Standing Exercises pushup+ Side bilateral Reps/Minutes 2x10 Comments demo for porper hand placement lat pulls Side bilateral Equipment Used 3# Reps/Minutes 3x10 Comments cues for shldr extension bicep curls Side bilateral Resistance 3# Reps/Minutes 3x10 Comments 6# final set wall circles Side right Equipment Used towel Reps/Minutes 3 x30sec for int rot, ext rot Comments increased ROM today wall walk Standing Exercise Name FF (added to HEP)- add ABD next appt Side right Reps/Minutes x3 Comments good alignment, decreased UT recruitment resisted rows Side bilateral Resistance TB 3 Reps/Minutes 3x10 Comments good carryover resisted shld ER Standing Exercise Name HEP with TB2 Side right Resistance Tb#2 Reps/Minutes 3x10 Comments cued scap retract/ depress and inf glide humerus for comfort pec minor door way stretch] Side bilateral Reps/Minutes 1-2 reps hold 30 sec each 1 Standing Exercise Name pendulum Side right Reps/Minutes [id number] bidirectional Comments for HEP Manual Therapy Treatment Joint Mobilizations GH Jt gides Joint R MWM for overhead Direction inf, post Grade II Body Position Hooklying Reps/Duration 15min Comments good feedback response Self-Care/Home Management Treatment Education Patient Education Home Exercise Program PT-OP-T Assessment and Plan Start: 09/22/20 08:17 Freq: Status: Active Protocol: Document 12/29/20 09:35 OF (Rec: 12/29/20 09:42 OF [email or web address]) Physical Therapy Assessment Rehab Potential Rehabilitation Potential Excellent Evaluation Complexity Number of Personal Factors/Comorbidities 1-2 Number of Body Systems Impaired 1-2 Clinical Presentation at Evaluation Stable Impairments Impairments ROM,Strength Goals Six Impairment Decreased R shoulder strength Impairment R shoulder strength is Flex & ER - 2+/5, Ext & AD 3/5, AB 3- /5, IR 3+/5 Short Term Goal (STG) Improve R shoulder strength 1/ 2 grade STG Duration 01/04/21 Long-Term Goal (LTG) Improve R shoulder strength with pt able to remove T- shirts overhead and able to carry/hold 20# with both arms. LTG Duration 02/03/21 Five Impairment Loss of R sholder ROM Short Term Goal (STG) Improve R shoulder AROM of ER to no less than 80 deg's ER and flexion 170 deg's for pt able to reach top shelf of kitchen items. STG Duration 01/04/21 Long-Term Goal (LTG) Pt will improve R shoulder AROM to reach behind the opposite shoulder, reach behind back to wash back and reach top shelf of kitchen ( front items). LTG Duration 02/03/21 Four Impairment R ue weakness Short Term Goal (STG) Pt will improve R shoulder strength in all planes to 2/5 to initiate ADL 11/14/20: Met 11/14 per PT previous tx carried over. STG Duration Goal MET 11/14 Systems Test Engineer Goal (LTG) Pt will improve R shoulder strength in all planes to 4/5 to return to work and achieve symmetry with L shoulder LTG Duration 02/03/21 Three Impairment quickdash Systems Test Engineer Goal (LTG) Pt will improve quickdash to < 20% to demonstrate improved function with R UE. 12/05/20: UE QuickDASH 25 (20- 39% impaired) LTG Duration 02/03/21 (12/05/20: Progressing) Two Impairment loss of R shoulder ext rot Short Term Goal (STG) pt will demo 20 degrees ext rot to initiate ADL with R UE STG Duration MET 11/14 Systems Test Engineer Goal (LTG) Pt will demo 40 degrees of ext rot to return to I PLOF and work 12/01/20: Goal Met 42 deg ext, measured in standing. LTG Duration goal met 12/01/20 One Impairment Loss of R shoulder ROM Short Term Goal (STG) Pt will demo R shoulder flexion to 90 degrees to initiate overhead activities 11/24/20: goal met: SUPINE: AROM during FF: 118 deg, ABD 93* w/ flex compensation, 60deg ER arm at side 12/01/20: FF 132*, abd w/ flex compensation 50 *, IR behind back over buttocks with cues for proper alignment. STG Duration 2 weeks GOAL MET Long-Term Goal (LTG) Pt will demo 180 degrees R shoulder flexion to return to normal PLOF 12/01/20: progressing 136 deg FF using wand. LTG Duration 6 weeks Progress Towards Goals Progress Towards Goals Progressing Toward Goals Assessment Summary Assessment Roma is progressing well with HEP and AROM, she has improved scapular stabilizer strength Physical Therapy Plan Frequency and Duration Frequency of Treatment 2x/Week Duration of Treatment 6weeks Plan of Care Start Date 12/05/20 Plan of Care End Date 02/03/21 Therapeutic Interventions Therapeutic Interventions Home Exercise Program,Manual Therapy,Patient/Caregiver Education,Self-Care/Home Management,Soft Tissue Mobilization,Therapeutic Exercises Next Visit Focus/Plan Next Note Type Treatment Note Next Visit Plan progress UBE, overhead reaching/stability
--- NOTE | 2021-01-03 10:14 | PT.OTN ---
Current Diagnoses Weakness (01/03/21) Unspecified fracture of upper end of right humerus, subsequent encounter for fracture with routine healing (01/03/21) Physical Therapy Treatment Note PT-OP-A Visit Information Start: 09/22/20 08:17 Freq: Status: Active Protocol: Document 01/03/21 10:08 OF (Rec: 01/03/21 10:14 OF [email or web address]) Out-Patient Physical Therapy Visit Information Visit Information Visit Type Treatment Note Visit Start Time 08:46 Visit Stop Time 09:42 Total Visit Minutes 46 Visit Number 17 Evaluation Information Evaluation Date 09/22/20 Precautions Precautions no lifting >10lb. 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 She demonstrates normal gait pattern and dynamic balance PT-OP-C Subjective Start: 09/22/20 08:17 Freq: Status: Active Protocol: Document 01/03/21 10:08 OF (Rec: 01/03/21 10:14 OF [email or web address]) OP-PT Subjective Patient Comments Patient Comments pt reports improved function at home, returning to work for 1/2 day today Patient Reported Progress Improving OP-PT Pain Assessment Pain Assessment Grid Paper Pain Assessment Grid Completed No: pt denies pain today PT-OP-K Range of Motion Start: 09/22/20 08:17 Freq: Status: Active Protocol: Document 12/08/20 13:49 SP (Rec: 12/08/20 15:48 SP [id number]) Shoulder Goniometric Range of Motion Shoulder R shld Shoulder ROM WFL No Testing Position Supine Flexion 130 Abduction 90 External Rotation at 45 degrees 45 Abduction Comments AROM PT-OP-M Strength Start: 09/22/20 08:17 Freq: Status: Active Protocol: Document 12/05/20 08:17 LRN (Rec: 12/05/20 09:04 LRN [id number]) Shoulder Strength Shoulder Manual Muscle Testing Right Flexion 2+ Poor+ Extension 3 Fair Abduction (C5) 3- Fair- Adduction 3 Fair External Rotation 2+ Poor+ Internal Rotation 3+ Fair+ Left Flexion 5 Normal Extension 5 Normal Abduction (C5) 5 Normal Adduction 5 Normal External Rotation 4 Good Internal Rotation 5 Normal PT-OP-Q Treatments Start: 09/22/20 08:17 Freq: Status: Active Protocol: Document 01/03/21 10:08 OF (Rec: 01/03/21 10:14 OF [email or web address]) Cardio Equipment Upper Body Ergometer (UBE) Duration (Minutes) 5 Other alterante ant/post Therapeutic Exercises Supine Exercises PNF Supine Exercise Name AROM/AAROM Side right Resistance 3lb Reps/Minutes 2x10 Comments ext/flexion with improved cross body reaching, cues for spinal ext Sidelying Exercises Shld abd Side bilateral Resistance AAROM Reps/Minutes 2x10 Comments painfree range Sitting Exercises pulleys Side bilateral Resistance PROM Reps/Minutes 6min Comments increased R shldr flexion shldr retraction Sitting Exercise Name reviewed HEP Side bilateral Reps/Minutes 3x5 Comments cues to keep humerus neutral inf glide, retract shoulder blades Standing Exercises pushup+ Side bilateral Reps/Minutes 2x10 Comments demo for porper hand placement lat pulls Side bilateral Equipment Used 5# Reps/Minutes 3x10 Comments cues for shldr extension bicep curls Side bilateral Resistance 5# Reps/Minutes 3x10 Comments 6# final set wall circles Side right Equipment Used towel Reps/Minutes 3 x30sec for int rot, ext rot Comments increased ROM today resisted rows Side bilateral Resistance TB 3 Reps/Minutes 3x10 Comments good carryover resisted shld ER Standing Exercise Name HEP with TB2 Side right Resistance Tb#2 Reps/Minutes 3x10 Comments cued scap retract/ depress and inf glide humerus for comfort pec minor door way stretch] Side bilateral Reps/Minutes 1-2 reps hold 30 sec each 1 Standing Exercise Name pendulum Side right Reps/Minutes [id number] bidirectional Comments for [facility] Self-Care/Home Management Treatment Education Patient Education Home Exercise Program Other Education progressing resistance with PNF PT-OP-T Assessment and Plan Start: 09/22/20 08:17 Freq: Status: Active Protocol: Document 01/03/21 10:08 OF (Rec: 01/03/21 10:14 OF [email or web address]) Physical Therapy Assessment Rehab Potential Rehabilitation Potential Excellent Evaluation Complexity Number of Personal Factors/Comorbidities 1-2 Number of Body Systems Impaired 1-2 Clinical Presentation at Evaluation Stable Impairments Impairments ROM,Strength Goals Six Impairment Decreased R shoulder strength Impairment R shoulder strength is Flex & ER - 2+/5, Ext & AD 3/5, AB 3- /5, IR 3+/5 Short Term Goal (STG) Improve R shoulder strength 1/ 2 grade STG Duration 01/04/21 Analytic Programmer Goal (LTG) Improve R shoulder strength with pt able to remove T- shirts overhead and able to carry/hold 20# with both arms. LTG Duration 02/03/21 Progress Towards Goals Progress Towards Goals Progressing Toward Goals Assessment Summary Assessment Roma is progressing well, she is returning to work 1/2 day today. Should be ready to DC to [facility] in ~2weeks Physical Therapy Plan Frequency and Duration Frequency of Treatment 2x/Week Duration of Treatment 6weeks Plan of Care Start Date 12/05/20 Plan of Care End Date 02/03/21 Therapeutic Interventions Therapeutic Interventions Home Exercise Program,Manual Therapy,Patient/Caregiver Education,Self-Care/Home Management,Soft Tissue Mobilization,Therapeutic Exercises Next Visit Focus/Plan Next Note Type Treatment Note Next Visit Plan progress overhead strengthening if ROM improves, reassess progress at work
--- NOTE | 2021-01-05 12:55 | PT.OTN ---
Current Diagnoses Weakness (01/05/21) Unspecified fracture of upper end of right humerus, subsequent encounter for fracture with routine healing (01/05/21) Physical Therapy Treatment Note PT-OP-A Visit Information Start: 09/22/20 08:17 Freq: Status: Active Protocol: Document 01/05/21 12:50 OF (Rec: 01/05/21 12:55 OF [email or web address]) Out-Patient Physical Therapy Visit Information Visit Information Visit Type Treatment Note Visit Start Time 08:56 Visit Stop Time 09:45 Total Visit Minutes 49 Visit Number 18 Evaluation Information Evaluation Date 09/22/20 Precautions Precautions no lifting >10lb. 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 She demonstrates normal gait pattern and dynamic balance PT-OP-C Subjective Start: 09/22/20 08:17 Freq: Status: Active Protocol: Document 01/05/21 12:50 OF (Rec: 01/05/21 12:55 OF [email or web address]) OP-PT Subjective Patient Comments Patient Comments Pt reports limited abduction at work, difficulty with reaching behind her back, otherwise I am doing good Patient Reported Progress Improving OP-PT Pain Assessment Pain Assessment Grid Paper Pain Assessment Grid Completed No: pt denies pain today PT-OP-K Range of Motion Start: 09/22/20 08:17 Freq: Status: Active Protocol: Document 12/08/20 13:49 SP (Rec: 12/08/20 15:48 SP [id number]) Shoulder Goniometric Range of Motion Shoulder R shld Shoulder ROM WFL No Testing Position Supine Flexion 130 Abduction 90 External Rotation at 45 degrees 45 Abduction Comments AROM PT-OP-M Strength Start: 09/22/20 08:17 Freq: Status: Active Protocol: Document 12/05/20 08:17 LRN (Rec: 12/05/20 09:04 LRN [id number]) Shoulder Strength Shoulder Manual Muscle Testing Right Flexion 2+ Poor+ Extension 3 Fair Abduction (C5) 3- Fair- Adduction 3 Fair External Rotation 2+ Poor+ Internal Rotation 3+ Fair+ Left Flexion 5 Normal Extension 5 Normal Abduction (C5) 5 Normal Adduction 5 Normal External Rotation 4 Good Internal Rotation 5 Normal PT-OP-Q Treatments Start: 09/22/20 08:17 Freq: Status: Active Protocol: Document 01/05/21 12:50 OF (Rec: 01/05/21 12:55 OF [email or web address]) Cardio Equipment Upper Body Ergometer (UBE) Duration (Minutes) 5 Other alterante ant/post 2.5min Therapeutic Exercises Supine Exercises PNF Supine Exercise Name AROM/AAROM Side right Resistance 3lb Reps/Minutes 2x10 Comments ext/flexion with improved cross body reaching, cues for spinal ext 1 Supine Exercise Name AAROM Flexion, Abduction Side right Reps/Minutes x5 pre manual Sidelying Exercises Shld abd Side bilateral Resistance AAROM Reps/Minutes 2x10 Comments painfree range Sitting Exercises pulleys Side bilateral Resistance PROM Reps/Minutes 6min Comments increased R shldr flexion 3 Sitting Exercise Name AAROM Side right Resistance while standing Equipment Used PVC Comments Flexion, Abd, ER Standing Exercises pushup+ Side bilateral Reps/Minutes 2x10 Comments demo for porper hand placement lat pulls Side bilateral Equipment Used 5# Reps/Minutes 3x10 Comments cues for shldr extension bicep curls Side bilateral Resistance 5# Reps/Minutes 3x10 Comments 6# final set wall circles Side right Equipment Used towel Reps/Minutes 3 x30sec for int rot, ext rot Comments increased ROM today wall walk Side right Reps/Minutes x3 Comments good alignment, decreased UT recruitment resisted rows Side bilateral Resistance TB 3 Reps/Minutes 3x10 Comments good carryover resisted shld ER Standing Exercise Name HEP with TB2 Side right Resistance Tb#2 Reps/Minutes 3x10 Comments cued scap retract/ depress and inf glide humerus for comfort pec minor door way stretch] Side bilateral Reps/Minutes 1-2 reps hold 30 sec each Manual Therapy Treatment Soft Tissue Mobilization 1 Body Location R subscap, teres, UT, deltoid, distal lat, bicep, serratus ant, supraspina Mobilization Type Myofascial Release,Strumming, Sustained Pressure Intensity/Depth Moderate Body Position Supine Comments manual, also modified partridge protocol prone and sidelying performed Self-Care/Home Management Treatment Education Patient Education Home Exercise Program PT-OP-T Assessment and Plan Start: 09/22/20 08:17 Freq: Status: Active Protocol: Document 01/05/21 12:50 OF (Rec: 01/05/21 12:55 OF [email or web address]) Physical Therapy Assessment Rehab Potential Rehabilitation Potential Good Evaluation Complexity Number of Personal Factors/Comorbidities 1-2 Number of Body Systems Impaired 1-2 Clinical Presentation at Evaluation Stable Impairments Impairments ROM,Strength Goals Six Impairment Decreased R shoulder strength Impairment R shoulder strength is Flex & ER - 2+/5, Ext & AD 3/5, AB 3- /5, IR 3+/5 Short Term Goal (STG) Improve R shoulder strength 1/ 2 grade STG Duration 01/04/21 Lean Manufacturing Specialist Goal (LTG) Improve R shoulder strength with pt able to remove T- shirts overhead and able to carry/hold 20# with both arms. LTG Duration 02/03/21 Five Impairment Loss of R sholder ROM Short Term Goal (STG) Improve R shoulder AROM of ER to no less than 80 deg's ER and flexion 170 deg's for pt able to reach top shelf of kitchen items. STG Duration 01/04/21 Lean Manufacturing Specialist Goal (LTG) Pt will improve R shoulder AROM to reach behind the opposite shoulder, reach behind back to wash back and reach top shelf of kitchen ( front items). LTG Duration 02/03/21 Four Impairment R ue weakness Short Term Goal (STG) Pt will improve R shoulder strength in all planes to 2/5 to initiate ADL 11/14/20: Met 11/14 per PT previous tx carried over. STG Duration Goal MET 11/14 Longterm Goal (LTG) Pt will improve R shoulder strength in all planes to 4/5 to return to work and achieve symmetry with L shoulder LTG Duration 02/03/21 Three Impairment quickdash Longterm Goal (LTG) Pt will improve quickdash to < 20% to demonstrate improved function with R UE. 12/05/20: UE QuickDASH 25 (20- 39% impaired) LTG Duration 02/03/21 (12/05/20: Progressing) Two Impairment loss of R shoulder ext rot Short Term Goal (STG) pt will demo 20 degrees ext rot to initiate ADL with R UE STG Duration MET 11/14 Lean Manufacturing Specialist Goal (LTG) Pt will demo 40 degrees of ext rot to return to I PLOF and work 12/01/20: Goal Met 42 deg ext, measured in standing. LTG Duration goal met 12/01/20 One Impairment Loss of R shoulder ROM Short Term Goal (STG) Pt will demo R shoulder flexion to 90 degrees to initiate overhead activities 11/24/20: goal met: SUPINE: AROM during FF: 118 deg, ABD 93* w/ flex compensation, 60deg ER arm at side 12/01/20: FF 132*, abd w/ flex compensation 50 *, IR behind back over buttocks with cues for proper alignment. STG Duration 2 weeks GOAL MET Lean Manufacturing Specialist Goal (LTG) Pt will demo 180 degrees R shoulder flexion to return to normal PLOF 12/01/20: progressing 136 deg FF using wand. LTG Duration 6 weeks Progress Towards Goals Progress Towards Goals Progressing Toward Goals Assessment Summary Assessment Roma is having a good return to work, improved function at home. She is agreeable to DC next week. Physical Therapy Plan Frequency and Duration Frequency of Treatment 2x/Week Duration of Treatment 6weeks Plan of Care Start Date 12/05/20 Plan of Care End Date 02/03/21 Therapeutic Interventions Therapeutic Interventions Home Exercise Program,Manual Therapy,Patient/Caregiver Education,Self-Care/Home Management,Soft Tissue Mobilization,Therapeutic Exercises Modalities Cold Pack/Ice Massage,Electric Stimulation,Hot Packs Next Visit Focus/Plan Next Note Type Treatment Note Next Visit Plan finalize HEP
--- NOTE | 2021-01-09 11:13 | PT.OTN ---
Current Diagnoses Weakness (01/09/21) Unspecified fracture of upper end of right humerus, subsequent encounter for fracture with routine healing (01/09/21) Physical Therapy Treatment Note PT-OP-A Visit Information Start: 09/22/20 08:17 Freq: Status: Active Protocol: Document 01/09/21 11:07 OF (Rec: 01/09/21 11:13 OF [id number]) Out-Patient Physical Therapy Visit Information Visit Information Visit Type Treatment Note Visit Start Time 09:00 Visit Stop Time 09:46 Total Visit Minutes 46 Visit Number 19 Evaluation Information Evaluation Date 09/22/20 Precautions Precautions no lifting >10lb. PT-OP-B Current Condition Start: 09/22/20 08:17 Freq: Status: Active Protocol: Document 09/22/20 09:01 OF (Rec: 09/22/20 11:54 OF [id number]) Current Condition History of Current Condition Onset Date 08/29/20 Current Complaints pain in R shoulder, swelling in R UE History of Current Condition Pt has been using a sling multimedia developer until last week when she was progressed to move out of sling while seated and perform pendulums. 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 She demonstrates normal gait pattern and dynamic balance PT-OP-C Subjective Start: 09/22/20 08:17 Freq: Status: Active Protocol: Document 01/09/21 11:07 OF (Rec: 01/09/21 11:13 OF [id number]) OP-PT Subjective Patient Comments Patient Comments pt reports improved AROM at work, only difficulty is cross body reaching Patient Reported Progress Improving OP-PT Pain Assessment Pain Assessment Grid Paper Pain Assessment Grid Completed No: pt denies pain today PT-OP-K Range of Motion Start: 09/22/20 08:17 Freq: Status: Active Protocol: Document 12/08/20 13:49 SP (Rec: 12/08/20 15:48 SP [id number]) Shoulder Goniometric Range of Motion Shoulder R shld Shoulder ROM WFL No Testing Position Supine Flexion 130 Abduction 90 External Rotation at 45 degrees 45 Abduction Comments AROM PT-OP-M Strength Start: 09/22/20 08:17 Freq: Status: Active Protocol: Document 12/05/20 08:17 LRN (Rec: 12/05/20 09:04 LRN [id number]) Shoulder Strength Shoulder Manual Muscle Testing Right Flexion 2+ Poor+ Extension 3 Fair Abduction (C5) 3- Fair- Adduction 3 Fair External Rotation 2+ Poor+ Internal Rotation 3+ Fair+ Left Flexion 5 Normal Extension 5 Normal Abduction (C5) 5 Normal Adduction 5 Normal External Rotation 4 Good Internal Rotation 5 Normal PT-OP-Q Treatments Start: 09/22/20 08:17 Freq: Status: Active Protocol: Document 01/09/21 11:07 OF (Rec: 01/09/21 11:13 OF [id number]) Cardio Equipment Upper Body Ergometer (UBE) Duration (Minutes) 5 Other alterante ant/post 2.5min Therapeutic Exercises Supine Exercises PNF Supine Exercise Name AROM/AAROM Side right Resistance 3lb Reps/Minutes 2x10 Comments ext/flexion with improved cross body reaching, cues for spinal ext Sidelying Exercises Shld abd Side bilateral Resistance AAROM Reps/Minutes 2x10 Comments painfree range Sitting Exercises pulleys Side bilateral Resistance PROM Reps/Minutes 5min Comments cues for scaption, proper spinal ext with overhead pulleys Standing Exercises pushup+ Side bilateral Reps/Minutes 3x10 Comments demo for porper eccentric lowering, + portion for serratus ant lat pulls Side bilateral Equipment Used 6# Reps/Minutes 3x10 Comments cues for shldr extension bicep curls Side bilateral Resistance 5# Reps/Minutes 3x10 Comments 6# final set wall circles Side right Equipment Used towel Reps/Minutes 3 x30sec for int rot, ext rot Comments increased ROM today wall walk Side right Reps/Minutes x3 Comments good alignment, decreased UT recruitment IR stretch Standing Exercise Name Behind back reaching Side right Equipment Used 2' resisted rows Side bilateral Resistance TB 3 Reps/Minutes 3x10 Comments good carryover resisted shld ER Standing Exercise Name HEP with TB2 Side right Resistance Tb#2 Reps/Minutes 3x10 Comments cued scap retract/ depress and inf glide humerus for comfort pec minor door way stretch] Side bilateral Reps/Minutes 1-2 reps hold 30 sec each 1 Standing Exercise Name pendulum Side right Reps/Minutes [id number] bidirectional Comments for HEP Self-Care/Home Management Treatment Education Patient Education Home Exercise Program PT-OP-T Assessment and Plan Start: 09/22/20 08:17 Freq: Status: Active Protocol: Document 01/09/21 11:07 OF (Rec: 01/09/21 11:13 OF [id number]) Physical Therapy Assessment Rehab Potential Rehabilitation Potential Excellent Evaluation Complexity Number of Personal Factors/Comorbidities 0 Number of Body Systems Impaired 1-2 Clinical Presentation at Evaluation Stable Impairments Impairments ROM,Strength Goals Six Impairment Decreased R shoulder strength Impairment R shoulder strength is Flex & ER - 2+/5, Ext & AD 3/5, AB 3- /5, IR 3+/5 Short Term Goal (STG) Improve R shoulder strength 1/ 2 grade STG Duration 01/04/21 Half-Way Goal (LTG) Improve R shoulder strength with pt able to remove T- shirts overhead and able to carry/hold 20# with both arms. LTG Duration 02/03/21 Five Impairment Loss of R sholder ROM Short Term Goal (STG) Improve R shoulder AROM of ER to no less than 80 deg's ER and flexion 170 deg's for pt able to reach top shelf of kitchen items. STG Duration 01/04/21 Half-Way Goal (LTG) Pt will improve R shoulder AROM to reach behind the opposite shoulder, reach behind back to wash back and reach top shelf of kitchen ( front items). LTG Duration 02/03/21 Four Impairment R ue weakness Short Term Goal (STG) Pt will improve R shoulder strength in all planes to 2/5 to initiate ADL 11/14/20: Met 11/14 per PT previous tx carried over. STG Duration Goal MET 11/14 Half-Way Goal (LTG) Pt will improve R shoulder strength in all planes to 4/5 to return to work and achieve symmetry with L shoulder LTG Duration 02/03/21 Three Impairment quickdash Half-Way Goal (LTG) Pt will improve quickdash to < 20% to demonstrate improved function with R UE. 12/05/20: UE QuickDASH 25 (20- 39% impaired) LTG Duration 02/03/21 (12/05/20: Progressing) Two Impairment loss of R shoulder ext rot Short Term Goal (STG) pt will demo 20 degrees ext rot to initiate ADL with R UE STG Duration MET 11/14 Half-Way Goal (LTG) Pt will demo 40 degrees of ext rot to return to I PLOF and work 12/01/20: Goal Met 42 deg ext, measured in standing. LTG Duration goal met 12/01/20 One Impairment Loss of R shoulder ROM Short Term Goal (STG) Pt will demo R shoulder flexion to 90 degrees to initiate overhead activities 11/24/20: goal met: SUPINE: AROM during FF: 118 deg, ABD 93* w/ flex compensation, 60deg ER arm at side 12/01/20: FF 132*, abd w/ flex compensation 50 *, IR behind back over buttocks with cues for proper alignment. STG Duration 2 weeks GOAL MET Vocational Services Specialist Goal (LTG) Pt will demo 180 degrees R shoulder flexion to return to normal PLOF 12/01/20: progressing 136 deg FF using wand. LTG Duration 6 weeks Progress Towards Goals Progress Towards Goals Progressing Toward Goals Assessment Summary Assessment Roma has improved tolerance for work, she has increased overhead mobility, states she should be ready for DC to HEP next visit Physical Therapy Plan Frequency and Duration Frequency of Treatment 2x/Week Duration of Treatment 6weeks Plan of Care Start Date 12/05/20 Plan of Care End Date 02/03/21 Therapeutic Interventions Therapeutic Interventions Home Exercise Program,Manual Therapy,Patient/Caregiver Education,Self-Care/Home Management,Soft Tissue Mobilization,Therapeutic Exercises Modalities Cold Pack/Ice Massage,Electric Stimulation,Hot Packs Next Visit Focus/Plan Next Note Type Treatment Note Next Visit Plan DC
--- NOTE | 2021-01-11 10:38 | PT.OTN ---
Current Diagnoses Weakness (01/11/21) Unspecified fracture of upper end of right humerus, subsequent encounter for fracture with routine healing (01/11/21) Physical Therapy Treatment Note PT-OP-A Visit Information Start: 09/22/20 08:17 Freq: Status: Active Protocol: Document 01/11/21 10:30 OF (Rec: 01/11/21 10:38 OF [id number]) Out-Patient Physical Therapy Visit Information Visit Information Visit Type Discharge Summary Visit Start Time 08:57 Visit Stop Time 09:44 Total Visit Minutes 47 Visit Number 20 Evaluation Information Evaluation Date 09/22/20 Precautions Precautions no lifting >10lb. 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 She demonstrates normal gait pattern and dynamic balance PT-OP-C Subjective Start: 09/22/20 08:17 Freq: Status: Active Protocol: Document 01/11/21 10:30 OF (Rec: 01/11/21 10:38 OF [id number]) OP-PT Subjective Patient Comments Patient Comments pt reports improved AROM at home/work, only difficulty is cross body reaching Patient Reported Progress Improving Patient Questionnaires Quick Dash- Upper Extremity Quick Dash UE Impairment 1 to 19% Impaired (Score 1-19) OP-PT Pain Assessment Pain Assessment Grid Paper Pain Assessment Grid Completed No Location Right Shoulder Pain Location Details no pain today PT-OP-K Range of Motion Start: 09/22/20 08:17 Freq: Status: Active Protocol: Document 01/11/21 10:30 OF (Rec: 01/11/21 10:38 OF [id number]) Shoulder Goniometric Range of Motion Shoulder Left Active Shoulder ROM WFL Yes R shld Shoulder ROM WFL Yes Testing Position Standing Flexion 165 Extension 35 Abduction 110 External Rotation at 90 degrees 60 Abduction External Rotation at 0 degrees Abduction 90 Internal Rotation 90 Internal Rotation Behind Back (text) L3 Elbow/Forearm Range of Motion Elbow/Forearm ROM Limitations Elbow/Forearm ROM Limitations Pain PT-OP-M Strength Start: 09/22/20 08:17 Freq: Status: Active Protocol: Document 01/11/21 10:30 OF (Rec: 01/11/21 10:38 OF [id number]) Shoulder Strength Shoulder Manual Muscle Testing Right Flexion 4 Good Extension 4 Good Abduction (C5) 4 Good Adduction 4 Good External Rotation 4 Good Internal Rotation 4 Good Horizontal Abduction 4 Good Horizontal Adduction 4 Good Left Flexion 5 Normal Extension 5 Normal Abduction (C5) 5 Normal Adduction 5 Normal External Rotation 5 Normal Internal Rotation 5 Normal Horizontal Abduction 5 Normal Horizontal Adduction 5 Normal PT-OP-Q Treatments Start: 09/22/20 08:17 Freq: Status: Active Protocol: Document 01/11/21 10:30 OF (Rec: 01/11/21 10:38 OF [id number]) Cardio Equipment Upper Body Ergometer (UBE) Duration (Minutes) 5 Other alterante ant/post 2.5min Therapeutic Exercises Supine Exercises AROM measurements Supine Exercise Name FF, AB, ER, IR, ext shoulder Side bilateral Resistance AROM PNF Supine Exercise Name AROM/AAROM Side right Resistance 3lb Reps/Minutes 2x10 Comments ext/flexion with improved cross body reaching, cues for spinal ext Sidelying Exercises Shld abd Side bilateral Resistance AAROM Reps/Minutes 2x10 Comments painfree range Sitting Exercises pulleys Side bilateral Resistance PROM Reps/Minutes 5min Comments cues for scaption, proper spinal ext with overhead pulleys Standing Exercises pushup+ Side bilateral Reps/Minutes 3x10 Comments demo for porper eccentric lowering, + portion for serratus ant lat pulls Side bilateral Equipment Used 6# Reps/Minutes 3x10 Comments cues for shldr extension bicep curls Side bilateral Resistance 5# Reps/Minutes 3x10 Comments 6# final set wall circles Side right Equipment Used towel Reps/Minutes 3 x30sec for int rot, ext rot Comments increased ROM today wall walk Side right Reps/Minutes x3 Comments good alignment, decreased UT recruitment IR stretch Standing Exercise Name Behind back reaching Side right Equipment Used 2' resisted rows Side bilateral Resistance TB 3 Reps/Minutes 3x10 Comments good carryover resisted shld ER Standing Exercise Name HEP with TB2 Side right Resistance Tb#2 Reps/Minutes 3x10 pec minor door way stretch] Side bilateral Reps/Minutes 1-2 reps hold 30 sec each 1 Standing Exercise Name pendulum Side right Reps/Minutes [id number] bidirectional Comments for HEP Self-Care/Home Management Treatment Education Patient Education Home Exercise Program PT-OP-T Assessment and Plan Start: 09/22/20 08:17 Freq: Status: Active Protocol: Document 01/11/21 10:30 OF (Rec: 01/11/21 10:38 OF [id number]) Physical Therapy Assessment Rehab Potential Rehabilitation Potential Excellent Evaluation Complexity Number of Personal Factors/Comorbidities 0 Number of Body Systems Impaired 1-2 Clinical Presentation at Evaluation Stable Impairments Impairments Strength Goals Six Impairment Decreased R shoulder strength Impairment R shoulder strength is Flex & ER - 2+/5, Ext & AD 3/5, AB 3- /5, IR 3+/5 Met 01/11/21 Short Term Goal (STG) Improve R shoulder strength 1/ 2 grade STG Duration 01/04/21 Patient Scheduling Coordinator Goal (LTG) Improve R shoulder strength with pt able to remove T- shirts overhead and able to carry/hold 20# with both arms. Not cleared to lift >10lb by MD LTG Duration 02/03/21 Five Impairment Loss of R sholder ROM Short Term Goal (STG) Improve R shoulder AROM of ER to no less than 80 deg's ER and flexion 170 deg's for pt able to reach top shelf of kitchen items. Met 01/11/21 STG Duration 01/04/21 Patient Scheduling Coordinator Goal (LTG) Pt will improve R shoulder AROM to reach behind the opposite shoulder, reach behind back to wash back and reach top shelf of kitchen ( front items). Met 01/11/21 LTG Duration 02/03/21 Four Impairment R ue weakness Short Term Goal (STG) Pt will improve R shoulder strength in all planes to 2/5 to initiate ADL 11/14/20: Met 11/14 per PT previous tx carried over. STG Duration Goal MET 11/14 Patient Scheduling Coordinator Goal (LTG) Pt will improve R shoulder strength in all planes to 4/5 to return to work and achieve symmetry with L shoulder Met 01/11/21 LTG Duration 02/03/21 Three Impairment quickdash Snf Goal (LTG) Pt will improve quickdash to < 20% to demonstrate improved function with R UE. 12/05/20: UE QuickDASH 25 (20- 39% impaired) Met 01/11/21 LTG Duration 02/03/21 (12/05/20: Progressing) Two Impairment loss of R shoulder ext rot Short Term Goal (STG) pt will demo 20 degrees ext rot to initiate ADL with R UE Met 01/11/21 STG Duration MET 11/14 Patient Scheduling Coordinator Goal (LTG) Pt will demo 40 degrees of ext rot to return to I PLOF and work 12/01/20: Goal Met 42 deg ext, measured in standing. LTG Duration goal met 12/01/20 One Impairment Loss of R shoulder ROM Short Term Goal (STG) Pt will demo R shoulder flexion to 90 degrees to initiate overhead activities 11/24/20: goal met: SUPINE: AROM during FF: 118 deg, ABD 93* w/ flex compensation, 60deg ER arm at side 12/01/20: FF 132*, abd w/ flex compensation 50 *, IR behind back over buttocks with cues for proper alignment. STG Duration 2 weeks GOAL MET Snf Goal (LTG) Pt will demo 180 degrees R shoulder flexion to return to normal PLOF 12/01/20: progressing 136 deg FF using wand. LTG Duration 6 weeks Progress Towards Goals Progress Towards Goals Goals Met Assessment Summary Assessment Roma has met her goals and returned to work. She has HEP progression for continued challenge at home. Physical Therapy Plan Frequency and Duration Frequency of Treatment DC Plan of Care End Date 01/11/21 Therapeutic Interventions Therapeutic Interventions Home Exercise Program,Manual Therapy,Patient/Caregiver Education,Self-Care/Home Management,Soft Tissue Mobilization,Therapeutic Exercises Modalities Cold Pack/Ice Massage,Electric Stimulation,Hot Packs Discharge Physical Therapy Discharge Reasons Goals Met Next Visit Focus/Plan Next Note Type Discharge Summary
== END 2021-01-11 13:06 | disposition home or self-care (01) ==
LOC: PHYS 09:00
PROVIDERS: PCP Internal Medicine; Referring Provider Physician Assistant; Visit Provider Physician Assistant
DX: S42.201D Unspecified fracture of upper end of right humerus, subsequent encounter for fracture with routine healing (principal); R53.1 Weakness
CPT/HCPCS: 97110; 97140; 97161

== ENCOUNTER → 2021-01-12 08:04 | Outpatient (CLI) | payer OTHER, SELFPAY ==
[2021-01-12 10:16] LABS: Alanine Aminotransferase 51 IU/L (<35); Albumin 4.5 g/dL (3.5-5.0); Albumin Globulin Ratio 1.7 (1.0-2.8); Alkaline Phosphatase 68 U/L (38-126); Aspartate Aminotransferase 36 IU/L (14-36); Bilirubin Total 0.9 mg/dL (0.2-1.3); Blood Urea Nitrogen 18 mg/dL (7-17); Calcium 9.7 mg/dL (8.4-10.2); Carbon Dioxide 35 mmol/L (22-32); Chloride 102 mmol/L (98-107); Estimated Glomerular Filt Rate > 60.0 mL/min (>60); Globulin 2.7 g/dL (1.7-4.1); Glucose 92 mg/dL (80-110); HEMOLYSIS < 15 (0-50); Potassium 4.3 mmol/L (3.4-5.1); Sodium 141 mmol/L (137-145); Total Protein 7.2 g/dL (6.3-8.2)
== END ==
PROVIDERS: PCP Physician Assistant; Referring Provider Physician Assistant; Visit Provider Physician Assistant
DX: N28.89 Other specified disorders of kidney and ureter (principal)
CPT/HCPCS: 36415; 80053

== ENCOUNTER → 2021-01-15 09:27 | Outpatient (CLI) | payer OTHER, SELFPAY ==
--- NOTE | 2021-01-15 09:37 | DI.CT.S_ITS ---
PROCEDURE: CT ABDOMEN WO/W CON INDICATIONS: Other specified disorders of kidney and ureter TECHNIQUE: Optional 5 mm thick noncontrast images acquired from the diaphragm to the iliac crests. After the administration of intravenous contrast, 5 mm thick images again acquired from the diaphragm to the iliac crests in the arterial and urographic phases. 5 mm thick coronal and sagittal reformats were then acquired. For radiation dose reduction, the following was used: automated exposure control, adjustment of mA and/or kV according to patient size. COMPARISON: [facility], , US ABDOMEN COMPLETE, 12/28/2020, 8:07. FINDINGS: Image quality: Excellent. Lung bases: Lung bases are clear. Heart size is normal. Genitourinary: Kidneys enhance symmetrically. Lobulation in the left kidney. There are small cortical hypodensities in the right kidney which are too small to further characterize. No solid enhancing mass. No hydronephrosis. No filling defect in the proximal opacified ureters. Other solid organs: Liver is normal in size. Small cysts in the liver. No suspicious focal enhancement. Gallbladder is unremarkable. Biliary system is non dilated. Pancreas enhances normally. Spleen is normal in size and enhancement. Left adrenal nodule measuring 2.4 x 2.3 cm, (/). Nodule appears homogeneous and bilobed. Noncontrast phase: 12 Hounsfield units. Arterial venous phase: 33 Hounsfield units. 10 minutes delayed phase: 74 Hounsfield units. Absolute Washout: -195 %. Absolute washout of 60% or higher is consistent with an adenoma. Relative Washout: -124 %. Relative washout of 40% or higher is consistent with an adenoma. No right adrenal nodule. Peritoneum and bowel: Unenhanced bowel loops are normal in wall thickness and caliber. No free fluid or air. Nodes and vessels: No retroperitoneal or mesenteric adenopathy by size criteria. Aorta and inferior vena cava are normal in caliber. Bones: No suspicious bony lesions. No vertebral body compression fractures. Miscellaneous: No ventral hernias. IMPRESSION: 1. No solid renal mass. The abnormality seen on recent ultrasound of the left kidney is not seen. This could be due to a cleft in the kidney. No kidney stones. 2. Incidental left adrenal nodule measuring 2.4 cm which demonstrates progressive enhancement is indeterminate. Washout is typically seen in adrenal adenomas. The lesion is bilobed and appears homogeneous. Adrenal hyperplasia could have this appearance. Less likely a malignant lesion or metastasis. -Recommend further characterization with MRI with in and out of phase imaging and IV contrast given its atypical enhancement. Dictated by: Dylan Yañez M.D. on 01/15/2021 at 10:02 Approved by: Dylan Yañez M.D. on 01/15/2021 at 10:24
== END ==
PROVIDERS: PCP Physician Assistant; Referring Provider Physician Assistant; Visit Provider Physician Assistant
DX: N28.89 Other specified disorders of kidney and ureter (principal)
CPT/HCPCS: 74170; Q9967

== ENCOUNTER → 2021-01-25 16:03 | Outpatient (CLI) | payer OTHER, SELFPAY ==
--- NOTE | 2021-01-25 | DI.MRI.S_ITS ---
PROCEDURE: MR ABDOMEN WO/W CON INDICATIONS: ADRENAL NODULE TECHNIQUE: Coronal HASTE, axial 2D FLASH in- and [id number]; axial breath-hold T2 FSE. Dynamic axial VIBE during the administration of contrast; post-contrast coronal VIBE or 2D FLASH with fat saturation from the hepatic dome to the iliac crests. Optional diffusion weighted imaging and ADC may be performed. COMPARISON: [facility], CT, CT ABDOMEN WO/W CON, 01/15/2021, 9:40. FINDINGS: Image quality: There is mild motion artifact. Lung bases: No basal pleural effusions. Heart size is normal. Solid organs: A few small cysts are demonstrated in the liver, with the largest measuring up to 1.5 cm. Biliary system is non dilated. Pancreas is normal in morphology. Spleen is normal in size and enhancement. The kidneys demonstrate no hydronephrosis. There are a few small renal cysts redemonstrated. No discrete renal mass identified. There is a bilobed left adrenal nodule redemonstrated measuring up to 2.5 x 2.2 x 3.9 cm. This demonstrates signal dropout on out of phase imaging consistent with the presence of intravoxel fat. This demonstrates enhancement following contrast administration with washout on delayed images. The nodule demonstrates restricted diffusion. Nodes and vessels: No retroperitoneal or mesenteric adenopathy by size criteria. Aorta and inferior vena cava are normal in size. Bowel and peritoneum: Visualized bowel loops are normal in caliber. No free fluid. Bones and soft tissues: No ventral hernias. Bone marrow is normal in overall signal. IMPRESSION: 1. Bilobed left adrenal nodule demonstrates internal microscopic fat likely representing a lipid rich adenoma. However, given its size and the presence of restricted diffusion, a fat-containing metastasis cannot be fully excluded although this is considered less likely. No suspicious hepatic or renal mass lesions are identified on the current study. A follow-up study may be performed in 6 months to demonstrate stability or if there is other suspicion for malignancy consider a PET-CT for further evaluation. Dictated by: Chandan Escoto M.D. on 01/26/2021 at 9:09 Approved by: Chandan Escoto M.D. on 01/26/2021 at 9:33
== END ==
PROVIDERS: PCP Physician Assistant; Referring Provider Physician Assistant; Visit Provider Physician Assistant
DX: E27.9 Disorder of adrenal gland, unspecified; K76.89 Other specified diseases of liver
CPT/HCPCS: 74183; A9579

== ENCOUNTER → 2021-02-05 11:08 | Outpatient (CLI) | payer OTHER, SELFPAY ==
--- NOTE | 2021-02-05 | DI.US.S_ITS ---
PROCEDURE: US PELVIC COMPLETE INDICATIONS: Unspecified abdominal pain, pelvic cramping TECHNIQUE: Real-time scanning was performed of the pelvic organs, with image documentation. Additional endovaginal scanning was necessary due to incomplete visualization of the adnexal and endometrial structures by transabdominal scanning. COMPARISON: [facility], MR, MR ABDOMEN WO/W CON, 01/25/2021, 16:20. [facility], CT, CT ABDOMEN WO/W CON, 01/15/2021, 9:40. FINDINGS: Uterus: Uterus is normal in size at 5 x 4.1 x 1.8 cm. The endometrium measures 1-2 mm in combined thickness. A adjacent to the endometrial stripe on the right, there are 2 hyperechoic foci seen that measure up to 4 mm up to 3 mm. No abnormal vascularity can be seen along the endometrial stripe or within these hyperechoic foci. Ovaries: The right ovary measures 2.1 x 1.3 x 0.7 cm. The left ovary measures 2.1 x 0.7 x 0.7 cm. The ovaries have a normal sonographic appearance. No adnexal masses are seen. Other: No pathologic free abdominal or pelvic fluid. IMPRESSION: A cause of cramping is not observed. Two hyperechoic foci can be seen adjacent to the endometrial stripe, without abnormal vascularity. These are most likely benign, although attention should be paid to these foci on any future follow-up studies. If it would be helpful for clinical management decision making, please consider a dedicated gynecological protocol MRI (without and with contrast) for further evaluation (assuming that there is no contraindication). Dictated by: Marcio Lucia M.D. on 02/05/2021 at 11:26 Approved by: Marcio Lucia M.D. on 02/05/2021 at 11:29
== END ==
PROVIDERS: PCP Physician Assistant; Referring Provider Physician Assistant; Visit Provider Physician Assistant
DX: R10.9 Unspecified abdominal pain (principal)
CPT/HCPCS: 76830; 76856

== ENCOUNTER → 2021-06-23 13:31 | Outpatient (CLI) | payer OTHER, SELFPAY ==
--- NOTE | 2021-06-23 13:43 | DI.MRI.S_ITS ---
PROCEDURE: MR HUMERUS RT WO CON INDICATIONS: hx of fx - on going pain TECHNIQUE: Noncontrast coronal and sagittal T1 spin echo and STIR; axial T1 spin echo and T2 fast spin echo with fat saturation through the right humerus. COMPARISON: [facility], CR, XR SHOULDER 2+ VIEWS RIGHT, 08/29/2020, 10:20. [facility], CR, XR SHOULDER 2+ VIEWS RIGHT, 11/21/2020, 9:49. FINDINGS: Image quality: Excellent. Bones: Mild deformity of the proximal humerus is consistent with a prior fracture. . There is solid osseous fusion across the majority of the fracture. Within the subcortical bone at the superior humeral head, there is a 1.7 x 0.9 x 1.2 cm the geographic area of peripheral T2-hyperintense signal with central T2 hypointense signal that could represent a portion of the healing fracture versus possibly avascular necrosis. No collapse of the overlying cortex is seen. The visualized bone marrow otherwise demonstrates normal signal on all sequences. Moderate acromioclavicular joint osteoarthrosis. Soft tissues: The scanned muscles demonstrate normal overall bulk and internal signal. The rotator cuff tendons are not well visualized as this exam is not tailored for evaluation of the shoulder structures. No soft tissue masses are present. IMPRESSION: 1. Chronic fracture deformity of the right proximal humerus with solid osseous fusion across the majority of the fracture line. 2. Geographic subcortical area of abnormal signal intensity at the superior humeral head could represent a residual portion of the fracture with incomplete healing versus development of avascular necrosis. No collapse of the overlying cortex. 3. Additional linear T2-hyperintense signal at the anterolateral humeral neck is nonspecific but could represent residual healing fracture. 4. No significant abnormality is seen in the mid to distal upper arm. Dictated by: Geovanni Mattson M.D. on 06/25/2021 at 9:13 Approved by: Geovanni Mattson M.D. on 06/25/2021 at 9:28
== END ==
PROVIDERS: PCP Physician Assistant; Referring Provider Orthopaedic Surgery; Visit Provider Orthopaedic Surgery
DX: S42.201S Unspecified fracture of upper end of right humerus, sequela (principal); M19.011 Primary osteoarthritis, right shoulder; M25.511 Pain in right shoulder; X58.XXXS Exposure to other specified factors, sequela
CPT/HCPCS: 73218

== ENCOUNTER 2023-02-21 09:03 | Day surgery (SDC) | payer OTHER, SELFPAY ==
[2023-02-21 09:39] VITALS: BMI 31.3
[2023-02-21 09:52] VITALS: BP 107/62; PULSE 65; RESP 17; TEMP 36.4; O2SAT 99
[2023-02-21] MEDS: LACTATED RINGERS 1,000 ML 150 ML IV (09:52)
--- NOTE | 2023-02-21 10:13 | PM.HP.1 ---
History of Present Illness History of Present Illness Date Patient Seen: 02/21/23 Time Patient Seen: 10:13 Chief complaint: SDC Narrative: History of colon polyps. Last scope was 5 years ago. No new symptoms PFSH Medical History Snoring Obstructive sleep apnea (adult) (pediatric) Social History household members: spouse Smoking Status: Never smoker Meds Home Medications and Allergies Home Medications Medication Instructions Recorded Confirmed Type aspirin 81 mg tablet,delayed 81 mg PO DAILY 12/18/19 02/21/23 History release (Miguelito Low Dose Aspirin) atorvastatin 80 mg tablet 80 mg PO QPM 12/18/19 02/21/23 History clopidogrel 75 mg tablet 75 mg PO DAILY 12/18/19 02/21/23 History losartan 25 mg tablet 12.5 mg PO DAILY 12/18/19 02/21/23 History nitroglycerin 0.4 mg sublingual 0.4 mg sublingual Q5-15M PRN Chest 12/18/19 02/21/23 History tablet Pain alprazolam 0.25 mg tablet (Xanax) 0.25 mg PO BEDTIME PRN anxiety #10 12/19/19 02/21/23 Rx tabs cholecalciferol (vitamin D3) 25 25 mcg PO DAILY 11/22/21 02/21/23 History mcg (1,000 unit) capsule coenzyme Q10 200 mg capsule 200 mg PO DAILY 11/22/21 02/21/23 History ferrous sulfate 325 mg (65 mg 325 mg PO DAILY 02/21/23 02/21/23 History iron) tablet (iron) metoprolol succinate 50 mg 50 mg PO BID 02/21/23 02/21/23 History tablet,extended release 24 hr Allergies Allergy/AdvReac Type Severity Reaction Status Date / Time No Known Drug Allergies Allergy Verified 02/21/23 09:34 Review of Systems Review of Systems ROS: Yes All systems reviewed with the patient and are negative except as otherwise documented Exam Vital Signs (past 8 hours): - 02/21/23 09:52 Temperature 97.6 F Pulse Rate 65 Respiratory Rate 17 Blood Pressure 107/62 Pulse Oximetry 99 Oxygen Delivery Method Room Air Oxygen Delivery Method Room Air Const General: cooperative and healthy appearing Nutritional Appearance: average body habitus HENMT Head: normocephalic and atraumatic Eyes Sclera: normal sclerae Neck Neck: trachea midline Chest Chest: normal inspection of the chest Resp Effort & Inspection: normal respiratory effort and able to speak in complete sentences Cardio Rate: regular rate Rhythm: regular rhythm GI Palpation: soft and No tender Skin General: turgor normal and atrophy Neuro General: patient alert, patient awake and patient oriented x3 Cognition: normal cognition Psych Mental Status: mental status grossly normal Attitude: cooperative Judgment: judgment good Assessment & Plan Assessment & Plan narrative: History of colon polyps Plan colonoscopy with anesthesia Time Spent With Patient Time with patient: less than 30 minutes
--- NOTE | 2023-02-21 10:47 | PM.OP.COLON ---
Operative Date/Time/Diagnoses Date of procedure: 02/21/23 Time of procedure: 10:47 Pre-op diagnosis: Colon cancer screening with a history of colon polyps Post-op diagnosis: same Procedure & Clinicians Study performed: Colonoscopy with anesthesia Same procedure as scheduled: Yes Indications: History of colon polyps Surgeon: Madina Lopez Procedure Notes Procedure in detail: Preop diagnosis: History of colon polyps Postop diagnosis: Same Operative procedure: Colonoscopy with anesthesia Surgeon: Ella Lopez MD Findings: Normal colonoscopy. No polyps identified. No significant diverticulosis Procedure: Patient placed in lateral position. Rectal exam performed showing normal tone no masses. Colonoscope inserted into the rectum and advanced to ileocecal valve with minimal difficulty. Insufflation and extraction of the scope and the above findings. Retroflex was included in the rectum. Impression: No polyps identified. No significant diverticulosis Plan: Repeat colonoscopy in 5 years due to the self history of colon polyps Specimen(s): none sent Complications: none Post-procedure Recommendations: Colonoscopy in 5 years Follow up: as needed Disposition: PACU
[2023-02-21 10:51] VITALS: BP 105/59; PULSE 51; RESP 11; TEMP 36.2; O2SAT 99
[2023-02-21 10:55] VITALS: BP 112/65; PULSE 51; RESP 17; O2SAT 99
[2023-02-21 11:01] VITALS: BP 109/70; PULSE 68; RESP 13; O2SAT 97
[2023-02-21 11:03] VITALS: BP 109/70; PULSE 68; RESP 17; O2SAT 98
== END 2023-02-21 11:15 | disposition home or self-care (01) ==
PROVIDERS: PCP Physician Assistant; Referring Provider Surgery; Visit Provider Surgery
PROC: 0DJD8ZZ Inspection of Lower Intestinal Tract, Via Natural or Artificial Opening Endoscopic (ICD-10-PCS; CPT 45378; principal; 2023-02-21 10:15)
DX: Z12.11 Encounter for screening for malignant neoplasm of colon (principal); Z86.010 Personal history of colon polyps
CPT/HCPCS: 45378; J2704

== ENCOUNTER → 2023-09-05 07:12 | Outpatient (CLI) | payer OTHER, SELFPAY ==
[2023-09-05 08:46] LABS: Alanine Aminotransferase 40 IU/L (<35); Albumin 4.2 g/dL (3.5-5.0); Albumin Globulin Ratio 1.8 (1.0-2.8); Alkaline Phosphatase 70 U/L (38-126); Aspartate Aminotransferase 31 IU/L (14-36); BUN Creatinine Ratio 33.3 (6-22); Bilirubin Total 0.8 mg/dL (0.2-1.3); Blood Urea Nitrogen 20 mg/dL (7-17); Calcium 9.2 mg/dL (8.4-10.2); Carbon Dioxide 29 mmol/L (22-32); Chloride 105 mmol/L (98-107); Cholesterol 141 mg/dL (140-199); Estimated Glomerular Filt Rate > 60 mL/min (>60); Globulin 2.4 g/dL (1.7-4.1); Glucose 104 mg/dL (80-110); HDL Cholesterol 68 mg/dL (40-60); HEMOLYSIS < 15 (0-50); LDL Cholesterol Calculated 58 mg/dL (<100); Potassium 4.1 mmol/L (3.4-5.1); Sodium 139 mmol/L (137-145); Total Protein 6.6 g/dL (6.3-8.2); Triglycerides 76 mg/dL (35-150)
== END ==
PROVIDERS: PCP Physician Assistant; Referring Provider Nurse Practitioner; Visit Provider Nurse Practitioner
DX: I25.10 Atherosclerotic heart disease of native coronary artery without angina pectoris (principal); E78.5 Hyperlipidemia, unspecified
CPT/HCPCS: 36415; 80053; 80061

== ENCOUNTER → 2024-09-04 11:10 | Outpatient (CLI) | payer BC, SELFPAY | PROVIDERS: PCP Internal Medicine | DX: R21 Rash and other nonspecific skin eruption (principal) | CPT/HCPCS: 86038 ==